=== PATIENT | female | born 1995 | race Caucasian/White ===

== ENCOUNTER → 2016-08-31 | Outpatient (CLI) | payer MEDICAID, OTHER ==
[~2016-08-31] MED LIST: NO HOME MEDS; QUET30XR PO; SERO50TA PO; TRAZ50TA11 PO; TRIL1TAB PO
[2016-08-31 14:41] LABS: MEAN CORPUSCULAR HEMOGLOBIN 31.5 pg (27.0-33.0); MEAN CORPUSCULAR HGB CONC 35.2 g/dl (32.0-36.5); MEAN CORPUSCULAR VOLUME 89.4 fl (80.0-96.0); RED CELL DISTRIBUTION WIDTH 12.8 % (11.5-14.5)
--- NOTE | 2016-08-31 15:05 | ECGEPIP ---
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
[2016-08-31 15:23] LABS: ALBUMIN 4.4 GM/DL (3.2-5.2); ALBUMIN/GLOBULIN RATIO 0.94 (1.00-1.93); ALKALINE PHOSPHATASE 116 U/L (45-117); ALT/SGPT 16 U/L (12-78); ANION GAP 6 MEQ/L (8-16); AST/SGOT 14 U/L (15-37); BILIRUBIN,TOTAL 1.2 MG/DL (0.2-1.0); BLOOD UREA NITROGEN 10 MG/DL (7-18); CALCIUM LEVEL 9.5 MG/DL (8.5-10.1); CARBON DIOXIDE LEVEL 27 MEQ/L (21-32); CHLORIDE LEVEL 103 MEQ/L (98-107); GLOMERULAR FILTRATION RATE > 60.0 (>60); GLUCOSE, FASTING 82 MG/DL (70-105); POTASSIUM SERUM 3.7 MEQ/L (3.5-5.1); SODIUM LEVEL 136 MEQ/L (136-145); TOTAL PROTEIN 9.1 GM/DL (6.4-8.2)
== END ==
LOC: M LAB 13:20
PROVIDERS: ATTEND Family Medicine
DX: F11.20 Opioid dependence, uncomplicated (principal); I49.9 Cardiac arrhythmia, unspecified; I45.10 Unspecified right bundle-branch block

== ENCOUNTER → 2016-10-12 | Outpatient (CLI) | payer MEDICAID | LOC: M OUTALCOH 08:01 | PROVIDERS: ATTEND Psychiatry & Neurology Psychiatry | DX: Z13.9 Encounter for screening, unspecified (principal); F11.20 Opioid dependence, uncomplicated ==

== ENCOUNTER 2016-11-06 09:54 | Outpatient (RCR) | payer MEDICAID | END 2016-11-21 | LOC: M OUTALCOH 09:54 | PROVIDERS: ATTEND Psychiatry & Neurology Psychiatry | DX: F11.20 Opioid dependence, uncomplicated (principal); F13.10 Sedative, hypnotic or anxiolytic abuse, uncomplicated; F17.200 Nicotine dependence, unspecified, uncomplicated ==

== ENCOUNTER → 2017-01-26 | Outpatient (CLI) | payer MEDICAID ==
[2017-01-26 19:18] LABS: ALBUMIN 4.2 GM/DL (3.2-5.2); ALBUMIN/GLOBULIN RATIO 0.93 (1.00-1.93); ALKALINE PHOSPHATASE 91 U/L (45-117); ALT/SGPT 17 U/L (12-78); ANION GAP 10 MEQ/L (8-16); AST/SGOT 11 U/L (7-37); BILIRUBIN,TOTAL 0.7 MG/DL (0.2-1.0); BLOOD UREA NITROGEN 8 MG/DL (7-18); CALCIUM LEVEL 9.1 MG/DL (8.5-10.1); CARBON DIOXIDE LEVEL 26 MEQ/L (21-32); CHLORIDE LEVEL 106 MEQ/L (98-107); CREATININE FOR GFR 0.71 MG/DL (0.55-1.02); GLOMERULAR FILTRATION RATE > 60.0 (>60); GLUCOSE, FASTING 115 MG/DL (70-105); SODIUM LEVEL 142 MEQ/L (136-145); TOTAL PROTEIN 8.7 GM/DL (6.4-8.2)
[2017-01-26 19:38] LABS: MEAN CORPUSCULAR HEMOGLOBIN 28.3 pg (27.0-33.0); MEAN CORPUSCULAR HGB CONC 33.5 g/dl (32.0-36.5); MEAN CORPUSCULAR VOLUME 84.6 fl (80.0-96.0); RED CELL DISTRIBUTION WIDTH 13.1 % (11.5-14.5); WHITE BLOOD COUNT 5.4 10^3/uL (4.0-10.0)
[2017-01-26 20:25] LABS: PLT CLUMPS? POS FLAG
--- NOTE | 2017-01-27 09:25 | ECGEPIP ---
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
== END ==
LOC: M LAB 17:37
PROVIDERS: ATTEND Family Medicine
DX: F11.20 Opioid dependence, uncomplicated (principal)

== ENCOUNTER → 2017-06-19 | Outpatient (REF) | payer MEDICAID, OTHER ==
[2017-06-20 19:21] LABS: APPEARANCE, URINE CLOUDY (CLEAR); BACTERIA, URINE AUTO 3+ (NEGATIVE); BILIRUBIN, URINE AUTO NEGATIVE (NEGATIVE); BLOOD, URINE BLOOD NEGATIVE (NEGATIVE); COLOR, URINE AMBER (YELLOW); GLUCOSE, URINE (UA) AUTO NEGATIVE (NEGATIVE); KETONE, URINE AUTO NEGATIVE (NEGATIVE); LEUKOCYTE ESTERASE, URINE AUTO 2+ (NEGATIVE); MUCUS, URINE SMALL (NEGATIVE); NITRITE, URINE AUTO NEGATIVE (NEGATIVE); PROTEIN, URINE AUTO 1+ mg/dL (NEGATIVE); RBC, URINE AUTO 2 /HPF (0-3); SPECIFIC GRAVITY URINE AUTO 1.024 (1.002-1.035); SQUAMOUS EPITHELIAL CELL UR AU 30 /HPF (0-6); UROBILINOGEN, URINE AUTO 0.2 mg/dL (0.0-2.0); WBC, URINE AUTO 71 /HPF (0-3)
== END ==
LOC: M LAB REF 09:57
DX: N39.0 Urinary tract infection, site not specified (principal)
CPT/HCPCS: 81001

== ENCOUNTER → 2018-05-31 | Outpatient (CLI) | payer MEDICAID ==
[~2018-05-31] MED LIST changes: -QUET30XR PO; +SERO300T PO; +TRAZ-160 PO; -TRAZ50TA11 PO
== END ==
LOC: M OUTALCOH 08:22
PROVIDERS: ATTEND Psychiatry & Neurology Psychiatry
DX: Z13.89 Encounter for screening for other disorder (principal); F11.20 Opioid dependence, uncomplicated

== ENCOUNTER → 2018-06-21 | Outpatient (RCR) | payer MEDICAID | LOC: M OUTALCOH 06-10 10:41 | PROVIDERS: ATTEND Psychiatry & Neurology Psychiatry | DX: F11.20 Opioid dependence, uncomplicated (principal); F13.10 Sedative, hypnotic or anxiolytic abuse, uncomplicated; F17.200 Nicotine dependence, unspecified, uncomplicated ==

== ENCOUNTER 2019-08-25 20:17 | Emergency (ER) | payer MEDICAID, OTHER ==
[~2019-08-25] VITALS: Ht 170.2 cm; Wt 69.6 kg
[~2019-08-25 20:17] MED LIST changes: -TRAZ-160 PO; +TRAZ-252 PO
[2019-08-25] MEDS ORDERED: CEPHALEXIN 500 MG CAP PO ONE (21:30)
[2019-08-25] MEDS ORDERED: PHENAZOPYRIDINE 100 MG TAB PO ONE (21:30)
[2019-08-25] MEDS ORDERED: PYRI1TAB5 PO (21:31)
[2019-08-25] MEDS ORDERED: KEFL500C17 PO (21:31)
[2019-08-25 21:38] VITALS: BP 116/73
== END 2019-08-25 21:40 | disposition home or self-care (01) ==
LOC: M ED 20:17
DX: N39.0 Urinary tract infection, site not specified (principal); F17.210 Nicotine dependence, cigarettes, uncomplicated; F31.9 Bipolar disorder, unspecified; F90.9 Attention-deficit hyperactivity disorder, unspecified type

== ENCOUNTER → 2020-07-15 | Outpatient (CLI) | payer OTHER ==
[~2020-07-15] MED LIST changes: +KEFL500C17 PO; +PYRI1TAB5 PO
[2020-07-15 14:31] LABS: APPEARANCE, URINE CLEAR (CLEAR); BACTERIA, URINE AUTO NEGATIVE (NEGATIVE); BILIRUBIN, URINE AUTO NEGATIVE (NEGATIVE); BLOOD, URINE BLOOD NEGATIVE (NEGATIVE); COLOR, URINE STRAW (YELLOW); GLUCOSE, URINE (UA) AUTO NEGATIVE (NEGATIVE); KETONE, URINE AUTO NEGATIVE (NEGATIVE); LEUKOCYTE ESTERASE, URINE AUTO NEGATIVE (NEGATIVE); NITRITE, URINE AUTO NEGATIVE (NEGATIVE); PROTEIN, URINE AUTO NEGATIVE (NEGATIVE); RBC, URINE AUTO 2 /HPF (0-3); SPECIFIC GRAVITY URINE AUTO 1.003 (1.002-1.035); SQUAMOUS EPITHELIAL CELL UR AU 1 /HPF (0-6); UROBILINOGEN, URINE AUTO 0.2 mg/dL (0.0-2.0); WBC, URINE AUTO 0 /HPF (0-3)
[2020-07-15 14:32] LABS: BASO % 0.4 % (0.0-1.0); EOS # 0.1 10^3/uL (0.0-0.5); EOS % 2.1 % (0.0-3.0); HEMOGLOBIN 12.8 g/dl (12.0-15.5); LYMPH # 1.7 10^3/uL (1.5-5.0); LYMPH % 32.5 % (24.0-44.0); MEAN CORPUSCULAR HEMOGLOBIN 28.6 pg (27.0-33.0); MEAN CORPUSCULAR HGB CONC 33.7 g/dl (32.0-36.5); MONO # 0.5 10^3/uL (0.0-0.8); MONO % 8.7 % (2.0-8.0); NEUTROPHILS % 55.9 % (36.0-66.0); PLATELET COUNT, AUTOMATED 156 10^3/uL (150-450); RED BLOOD COUNT 4.47 10^6/uL (4.00-5.40); WHITE BLOOD COUNT 5.3 10^3/uL (4.0-10.0)
[2020-07-15 15:05] LABS: ALBUMIN 4.1 GM/DL (3.2-5.2); ALT/SGPT 42 U/L (12-78); BILIRUBIN,TOTAL 0.5 MG/DL (0.2-1.0); BLOOD UREA NITROGEN 11 MG/DL (7-18); CALCIUM LEVEL 9.2 MG/DL (8.5-10.1); CARBON DIOXIDE LEVEL 28 MEQ/L (21-32); CHLORIDE LEVEL 103 MEQ/L (98-107); CREATININE FOR GFR 0.74 MG/DL (0.55-1.30); GLOMERULAR FILTRATION RATE > 60.0 (>60); GLUCOSE, FASTING 93 MG/DL (70-100); POTASSIUM SERUM 4.1 MEQ/L (3.5-5.1); SODIUM LEVEL 138 MEQ/L (136-145); TOTAL PROTEIN 8.5 GM/DL (6.4-8.2)
[2020-07-15 15:25] LABS: HEPATITIS B SURFACE ANTIGEN NEGATIVE (NEGATIVE)
[2020-07-15 15:53] LABS: HEPATITIS B CORE ANTIBODY IGM NEGATIVE (NEGATIVE)
[2020-07-15 15:54] LABS: HEPATITIS A ANTIBODY IGM NEGATIVE (NEGATIVE)
[2020-07-15 15:57] LABS: HEPATITIS C VIRUS ABY INDEX > 11.0 INDEX (<0.8)
== END ==
LOC: M LAB 13:26
PROVIDERS: ATTEND Physician Assistant Medical
DX: Z02.2 Encounter for examination for admission to residential institution (principal)

== ENCOUNTER → 2021-01-01 | Outpatient (CLI) | payer OTHER ==
[~2021-01-01] MED LIST changes: +BUSP30TA PO; +QC F0.52 PO; +SENN-80 PO; +SUBL300I SC; +WELLTAB38 PO; +ZOLO25TA PO
== END ==
LOC: M LABSMTC 10:46
PROVIDERS: ATTEND Anesthesiology
DX: Z01.818 Encounter for other preprocedural examination (principal); Z11.52 Encounter for screening for COVID-19

== ENCOUNTER 2021-01-06 07:57 | Day surgery (SDC) | payer OTHER ==
[~2021-01-06] VITALS: Ht 170.2 cm; Wt 79.7 kg
[~2021-01-06 07:57] MED LIST changes: +LR 1,000 ML IV ONE
--- OUTSIDE RECORDS SUMMARY | 2021-01-06 08:01 | CCD | Continuity of Care Document ---
Author Author [facility] [place] Organization [facility] [place] Address Unknown Phone Unavailable Care Team Providers Care Easement Man Name Role Phone Tonja Oleary MD Unavailable Unavailable Allergies, Adverse Reactions, Alerts Substance Reaction Status Criticality No Known Allergies Active No Information Medications Medication Instructions Dosage Effective Dates (start - stop) Sta tus Comments Sublocade 100 mg/0.5 mL solution,extended release subc utaneous syringe inject 0.5 milliliter by subcutaneous route every month in the abdomen rotating injection sites 100 MG - Active Problems Condition Effective Dates (start - stop) Clinical Status C omments Encounter for oth general cnsl and advice on contraception 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 Encntr screen for infections w sexl mode of transmiss Human immunodeficiency virus [HIV] counseling Other sex counseling Acute vaginitis Other specified noninflammatory disorders of vagina Pelvic and perineal pain Other sex counseling Acute vaginitis Other specified noninflammatory disorders of vagina Encounter for oth general cnsl and advice on contraception Encounter for test, result negative Human immunodeficiency virus [HIV] counseling Human immunodeficiency virus [HIV] counseling Encounter for test, result negative Other specified noninflammatory disorders of vagina Acute vaginitis Encounter for oth general cnsl and advice on contraception Encounter for screening for human immunodeficiency virus 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 [address] [place], [place], [id number], [place]. tel:[phone] [facility], [address] [place], [place], [id number], [place] tel:[phone] [facility] Encounter for oth g eneral cnsl and advice on contraception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Encntr screen for infections w sexl mode of transmissHuman immunodeficiency virus [HIV] counselingOther sex counselingAcute vaginitisOther specified noninflammatory disorders of vaginaPelvic and perineal pain Indio Gao. [address] [place], [place], [id number], [place]. tel:[phone] Referring Provider: Mandie Borjas, [address] [place] [address], [id number]. tel:[phone] [facility], [address] [place], [place], [id number], [place] tel:[phone] [facility] Other sex counselin gAcute vaginitisOther specified noninflammatory disorders of vaginaEncounter for oth general cnsl and advice on contraceptionEncounter for test, result negative Ana William. [address] [place], [place], [id number], [place]. tel:[phone] Referring Provider: Kathy Perez, [address] [place], [place], [id number]. tel:[phone] [facility], [address] [place] [address], [id number], [place] tel:[phone] [facility] Human immunodeficie ncy virus [HIV] counseling Elroy Marquez. [address] [place], [place], [id number]. tel:[phone] Referring Provider: Alma Abbasi, [address] [place] [address], [id number]. tel:[phone] [facility] [address], [address] [place] [address], tel:[phone] [facility] [place] Human immunodeficie ncy virus [HIV] counselingEncounter for test, result negativeOther specified noninflammatory disorders of vaginaAcute vaginitisEncounter for oth general cnsl and advice on contraceptionEncounter for screening for human immunodeficiency virus Saundra Ennis. [address] [place] [address], [address] [place] [address], . tel:[phone] Referring Provider: Loli mac, [address] [place] [address], [address] [place] [address]. tel:[phone] [facility] [address], [address] [place] [address], tel:[phone] [facility] STI ScreeningGYN Ex am, Routine WWEHIV CounselingOCP, StartSTI CounselingBV Katiana Jimenez. [address] [place] [address], [id number]. tel:[phone] Family History Family Member Diagnosis Age At Onset Father Alcoholism 1st degree relative No hx of cancer of breast, colon, endome trium or ovary Mother High cholesterol 1st degree relative No hx of coronary heart disease (female <65, male <55) 1st degree relative No hx of venous thromboembolism Father Diabetes mellitus Immunizations Vaccine Date Status Comments measles, mumps and rubella virus vaccine adminis tered Note: Dates Unknown, Attended [facility] schools.Invalid documented admin date was NULL/NULL/2013. ; Source: Source Unspecified rubella virus vaccine administered Note: Date s Unknown, Attended [facility] [employer].Invalid documented admin date was NULL/NULL/2013. ; Source: Source Unspecified tetanus toxoid, adsorbed administered Note: D ates Unknown, Attended [facility] [employer].Invalid documented admin date was NULL/NULL/2013. ; Source: Source Unspecified varicella virus vaccine administered Note: Da bronson Unknown, Attended [facility] [employer].Invalid documented admin date was NULL/NULL/2013. ; Source: Source Unspecified hepatitis A and hepatitis B vaccine administered Note: Dates Unknown, Attended [facility] EZ[employer]CTOR.Invalid documented admin date was NULL/NULL/2013. ; Source: Source Unspecified hepatitis A vaccine, adult dosage administered Note: Dates Unknown, Attended [facility] [employer].Invalid documented admin date was NULL/NULL/2013. ; Source: Source Unspecified hepatitis B vaccine, adult dosage administered Note: Dates Unknown, Attended [facility] [employer].Invalid documented admin date was NULL/NULL/2013. ; Source: Source Unspecified Payers Payer name Insurance type Covered democrat ID Authorization(s ) [facility] CI [id number] Social History Type Description Quantity Date Captured Comments Alcohol Use Details Unknown Caffeine Use Details Unknown Tobacco Use Status No Information Smoking Status Never smoker Sex Female Vital Signs Date / Time: Height Weight BMI Pulse Rate Blood Pressure Temperatu re Respiratory Rate Body Surface Area Head Circumference BMI percentile Pulse Ox In haled Ox No Information Chief Complaint And Reason For Visit No Information Reason For Referral Reason For Referral No Information Plan Of Treatment Date Type Action Status Goal Tobacco cessation counseling com pleted Goal Tobacco cessation counseling com pleted Goal Tobacco cessation counseling com pleted History Of Present Illness Encounter Date Complaint History Of Present I llness No Information Functional Status Date Functional Assessment No Information Medications Administered Medication Instructions Dosage Effective Dates (start - stop) Sta tus Comments No Information Instructions Date Instruction Additional Informati on No Information Assessments Type Assessment Date No Information Goals Health Concern Goal Type Priority Status Date No Information Medical Equipment Description Device [place] Device Identifier Effective Gabriel es (start - stop) Status No Information Mental Status Date Cognitive Assessment No Information Health Concerns Observation Date No Information Concern Status Date No Information Physical Examination Exam Findings Details No Information
--- OUTSIDE RECORDS SUMMARY | 2021-01-06 08:01 | CCD | Continuity of Care Document ---
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 [address] [place], [place], [id number], [place]. tel:[phone] [facility], [address] [place], [place], [id number], [place] tel:[phone] [facility] Encounter for oth g eneral cnsl and advice on contraceptionEncntr for design leader exam (general) (routine) w abnormal findingsEncntr screen for infections w sexl mode of transmissHuman immunodeficiency virus [HIV] counselingOther sex counselingAcute vaginitisOther specified noninflammatory disorders of vaginaPelvic and perineal pain Indio Gao. [address] [place], [place], [id number], [place]. tel:[phone] Referring Provider: Mandie Borjas, [address] [place] [address], [id number]. tel:[phone] [facility], [address] [place], [place], [id number], [place] tel:[phone] [facility] Other sex counselin gAcute vaginitisOther specified noninflammatory disorders of vaginaEncounter for oth general cnsl and advice on contraceptionEncounter for test, result negative Ana William. [address] [place], [place], [id number], [place]. tel:[phone] Referring Provider: Kathy Perez, [address] [place], [place], [id number]. tel:[phone] [facility], [address] [place] [address], [id number], [place] tel:[phone] [facility] Human immunodeficie ncy virus [HIV] counseling Elroy Marquez. [address] [place], [place], [id number]. tel:[phone] Referring Provider: Alma Abbasi, [address] [place] [address], [id number]. tel:[phone] [facility] [address], [address] [place] [address], tel:[phone] [facility] [place] Human immunodeficie ncy virus [HIV] counselingEncounter for test, result negativeOther specified noninflammatory disorders of vaginaAcute vaginitisEncounter for oth general cnsl and advice on contraceptionEncounter for screening for human immunodeficiency virus Saundra Ennis. [address] [place] [address], [address] [place] [address], . tel:[phone] Referring Provider: Loli mac, [address] [place] [address], [address] [place] [address]. tel:[phone] [facility] [address], [address] [place] [address], tel:[phone] [facility] STI ScreeningGYN Ex am, Routine WWEHIV CounselingOCP, StartSTI CounselingBV Katiana Jimenez. [address] [place] [address], [id number]. tel:[phone] Family History Family Member Diagnosis Age At [...] vaccine adminis tered Note: Dates Unknown, Attended [facility] schools.Invalid documented admin date was NULL/NULL/2013. ; Source: Source Unspecified rubella virus vaccine administered Note: Date s Unknown, Attended [facility] [employer].Invalid documented admin date was NULL/NULL/2013. ; Source: Source Unspecified tetanus toxoid, adsorbed administered Note: D ates Unknown, Attended [facility] [employer].Invalid documented admin date was NULL/NULL/2013. ; Source: Source Unspecified varicella virus vaccine administered Note: Da bronson Unknown, Attended [facility] [employer].Invalid documented admin date was NULL/NULL/2013. ; Source: Source Unspecified hepatitis A and hepatitis B vaccine administered Note: Dates Unknown, Attended [facility] [employer].Invalid documented admin date was NULL/NULL/2013. ; Source: Source Unspecified hepatitis A vaccine, adult dosage administered Note: Dates Unknown, Attended [facility] [employer].Invalid documented admin date was NULL/NULL/2013. ; Source: Source Unspecified hepatitis B vaccine, adult dosage administered Note: Dates Unknown, Attended [facility] [employer].Invalid documented admin date was NULL/NULL/2013. ; Source: Source Unspecified Payers Payer name Insurance type Covered democrat ID Authorization(s ) [facility] CI [id number] Social History Type Description Quantity Date Captured [...] Date No Information Medical Equipment Description Device [place] Device Identifier Effective Gabriel es (start - stop) Status No Information Mental Status Date Cognitive Assessment No Information Health Concerns Observation Date No Information Concern Status Date No Information Physical Examination Exam Findings Details No Information
--- OUTSIDE RECORDS SUMMARY | 2021-01-06 08:01 | CCD | Continuity of Care Document ---
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 [address] [place], [place], [id number], [place]. tel:[phone] [facility] [place], [address] [place], [place], [id number], [place] tel:[phone] [facility] Encounter for oth g eneral cnsl and advice on contraceptionEncntr for settlement processor exam (general) (routine) w abnormal findingsEncntr screen for infections w sexl mode of transmissHuman immunodeficiency virus [HIV] counselingOther sex counselingAcute vaginitisOther specified noninflammatory disorders of vaginaPelvic and perineal pain Indio Gao. [address] [place], [place], [id number], [place]. tel:[phone] Referring Provider: Mandie Borjas, [address] [place], [place], [id number]. tel:[phone] [facility], [address] [place], [place], [id number], [place] tel:[phone] [facility] Other sex counselin gAcute vaginitisOther specified noninflammatory disorders of vaginaEncounter for oth general cnsl and advice on contraceptionEncounter for test, result negative Ana William. [address] [place], [place], [id number], [place]. tel:[phone] Referring Provider: Kathy Perez, [address] [place], [place], [id number]. tel:[phone] [facility] [place], [address] [place], [place], [id number], [place] tel:[phone] [facility] Human immunodeficie ncy virus [HIV] counseling Feb-01-2018 Elroy Marquez. [address] [place], [place], [id number]. tel:[phone] Referring Provider: Alma Abbasi, [address] [place] [address], [id number]. tel:[phone] [facility], [address] [place] [address], [id number], tel:[phone] [facility] Human immunodeficie ncy virus [HIV] counselingEncounter for test, result negativeOther specified noninflammatory disorders of vaginaAcute vaginitisEncounter for oth general cnsl and advice on contraceptionEncounter for screening for human immunodeficiency virus Saundra Ennis. [address] [place], [place], [id number], . tel:[phone] Referring Provider: Loli mac, [address] [place] [address], [id number]. tel:[phone] [facility] [address], [id number], tel:[phone] [facility] STI ScreeningGYN Ex am, Routine WWEHIV CounselingOCP, StartSTI CounselingBV Saab Barbara. [address] [place] [address], [id number]. tel:[phone] Family History Family Member Diagnosis Age At [...] vaccine adminis tered Note: Dates Unknown, Attended [facility] Intent.Invalid documented admin date was NULL/NULL/2013. ; Source: Source Unspecified rubella virus vaccine administered Note: Date s Unknown, Attended [facility] schools.Invalid documented admin date was NULL/NULL/2013. ; Source: Source Unspecified tetanus toxoid, adsorbed administered Note: D ates Unknown, Attended [facility] Intent.Invalid documented admin date was NULL/NULL/2013. ; Source: Source Unspecified varicella virus vaccine administered Note: Da bronson Unknown, Attended [facility] Intent.Invalid documented admin date was NULL/NULL/2013. ; Source: Source Unspecified hepatitis A and hepatitis B vaccine administered Note: Dates Unknown, Attended [facility] Intent.Invalid documented admin date was NULL/NULL/2013. ; Source: Source Unspecified hepatitis A vaccine, adult dosage administered Note: Dates Unknown, Attended [facility] Intent.Invalid documented admin date was NULL/NULL/2013. ; Source: Source Unspecified hepatitis B vaccine, adult dosage administered Note: Dates Unknown, Attended [facility] Intent.Invalid documented admin date was NULL/NULL/2013. ; Source: Source Unspecified Payers Payer name Insurance type Covered libertarian ID Authorization(s ) [facility] CI [id number] Social History Type Description Quantity Date Captured [...] Date No Information Medical Equipment Description Device [place] Device Identifier Effective Gabriel es (start - stop) Status No Information Mental Status Date Cognitive Assessment No Information Health Concerns Observation Date No Information Concern Status Date No Information Physical Examination Exam Findings Details No Information
--- OUTSIDE RECORDS SUMMARY | 2021-01-06 08:01 | CCD | Continuity of Care Document ---
Author Author Teri KEITH Organization Unknown Address [address] [facility] [address] [place] [address] Phone [phone] Care Team Providers Care Filing Or Registry Clerk Name Role Phone JAVIER KEITH AUTM Social History Type Date Description Comments Sex Unknown Results Test Acquired Date Facility Test Result H/L Range Note Ua Routine 07/15/[address] [address] [phone] Appearance, Urine CLEAR Normal Clear Color, Urine STRAW Normal Yellow PH,Urine 7.0 units Normal 5.0-9.0 Specific [place] Urine Auto 1.003 Normal 1.002-1.035 Protein, Urine Auto NEGATIVE mg/dL Normal Negative Glucose, Urine (Ua) Auto NEGATIVE mg/dL Normal Negative Ketone, Urine Auto NEGATIVE mg/dL Normal Negative Urobilinogen, Urine Auto 0.2 mg/dL Normal 0.0-2.0 Bilirubin, Urine Auto NEGATIVE Normal Negative Nitrite, Urine Auto NEGATIVE Normal Negative Leukocyte Esterase, Urine Auto NEGATIVE Normal Negative Blood, Urine Blood NEGATIVE Normal Negative WBC, Urine Auto 0 /HPF Normal 0-3 RBC, Urine Auto 2 /HPF Normal 0-3 Bacteria, Urine Auto NEGATIVE Normal Negative Squamous Epithelial Cell Ur AU 1 /HPF Normal 0-6 Hyaline Cast, Urine Auto 0 /LPF Normal 0-1 CBC With Differential 07/15/[address] [address] [phone] White Blood Count 5.3 10 Normal 4.0-10.0 Red Blood Count 4.47 10 Normal 4.00-5.40 Hemoglobin 12.8 g/dL Normal 12.0-15.5 Hematocrit 38.0 % Normal 36.0-47.0 Mean Corpuscular Volume 85.0 fl Normal 80.0-96.0 Mean Corpuscular Hemoglobin 28.6 pg Normal 27.0-33.0 Mean Corpuscular HGB Conc 33.7 g/dL Normal 32.0-36.5 Red Cell Distribution Width 12.8 % Normal 11.5-14.5 Platelet Count, Automated 156 10 Normal 150-450 Neutrophils % 55.9 % Normal 36.0-66.0 Lymph % 32.5 % Normal 24.0-44.0 [place] % 8.7 % High 2.0-8.0 Eos % 2.1 % Normal 0.0-3.0 Baso % 0.4 % Normal 0.0-1.0 Immature Granulocyte % 0.4 % Normal 0-3.0 Nucleated Red Blood Cell % 0.0 % Normal 0-0 Neutrophils # 3.0 10 Normal 1.5-8.5 Lymph # 1.7 10 Normal 1.5-5.0 [place] # 0.5 10 Normal 0.0-0.8 Eos # 0.1 10 Normal 0.0-0.5 Baso # 0.0 10 Normal 0.0-0.2 Comprehensive Metabolic Profil 07/15/[address] [address] [phone] Glucose, Fasting 93 mg/dL Normal 70-100 Blood Urea Nitrogen 11 mg/dL Normal 7-18 Creatinine For GFR 0.74 mg/dL Normal 0.55-1.30 Glomerular Filtration Rate > 60.0 Normal >60 1 Sodium Level 138 mEq/L Normal 136-145 Potassium Serum 4.1 mEq/L Normal 3.5-5.1 Chloride Level 103 mEq/L Normal 98-107 Carbon Dioxide Level 28 mEq/L Normal 21-32 Anion Gap 7 mEq/L Low 8-16 Calcium Level 9.2 mg/dL Normal 8.5-10.1 Ast/Sgot 25 U/L Normal 7-37 Alt/SGPT 42 U/L Normal 12-78 Alkaline Phosphatase 81 U/L Normal 45-117 Bilirubin,Total 0.5 mg/dL Normal 0.2-1.0 Total Protein 8.5 GM/DL High 6.4-8.2 Albumin 4.1 GM/DL Normal 3.2-5.2 Albumin/Globulin Ratio 0.9 Low 1.2-2.2 Hepatitis Profile 07/15/2020 [facility] [address] [place] [address] [phone] Hepatitis C Virus Lexii Index > 11.0 INDEX High <0 .8 2 Hepatitis B Surface Antigen NEGATIVE Normal Negative Hepatitis B Core Antibody Igm NEGATIVE Normal Negative Hepatitis A Antibody Igm NEGATIVE Normal Negative Laboratory test finding 07/15/2020 [facility] [address] [place] [address] [phone] HCV Rna Barbi Qualitative Negative Normal Negative 3 1 Units are mL/min/1.73 m2 Chronic Kidney Disease Staging per NKF: Stage I & II GFR >=60 Normal to Mildly Decreased Stage III GFR 30-59 Moderately Decreased Stage IV GFR 15-29 Severely Decreased Stage V GFR <15 Very Little GFR Left ESRD GFR <15 on SAMPLER OVENS 2 This screening test for Hepa titis C Virus was above the 1.0 cutoff index value and will be sent to reference lab [facility], [address] [facility] [address] Marissa, Andrés.Tushar. [address] for Hep C RNA BARBI testing to confirm or exclude active Hepatitis C Virus infection. Screening test Positive samples with high index values (>11.0) usually (95%) confirm Positive, but <5 of every 100 samples with this result might be a false positive and Hep C RNA BARBI testing will aid in patient management. 3 Negative: HCV RNA Not Detect ed Performed at: [address] [id number] Out: René Orlando MD, Phone: [phone] Procedures Date Code Description Status 11/06/2020 70568 Office/Outpatient Established SF MDM 10-19 Min Completed 10/15/2020 18875 Office/Outpatient Established Lo w MDM 20-29 Min Completed 08/29/2020 21869 Office/Outpatient Established Lo w MDM 20-29 Min Completed 08/06/2020 88200 Office/Outpatient Established Lo w MDM 20-29 Min Completed 07/12/2020 01335 Office/Outpatient New Low MDM 30 -44 Minutes Completed Encounters Type Date Location Provider Dx Diagnosis Office Visit 11/06/2020 12:30p [facility] LAURA Garcia R05 Cough Office Visit 10/15/2020 10:00a [facility] LAURA Garcia J01.10 Acute frontal sinusitis, uns pecified Office Visit 08/29/2020 9:45a [facility] LAURA Garcia J01.10 Acute frontal sinusitis, uns pecified F41.9 Anxiety disorder, unspecifie d G47.00 Insomnia, unspecified Office Visit 08/06/2020 12:00p [facility] LAURA Garcia G93.0 Cerebral cysts F41.9 Anxiety disorder, unspecifie d J35.8 Other chronic diseases of to nsils and adenoids Office Visit 07/12/2020 10:30a [facility] LAURA Garcia F41.9 Anxiety disorder, unspecifie d G47.00 Insomnia, unspecified Z02.79 Encounter for issue of other medical certificate Assessments Date Code Description Provider 11/06/2020 R05 Cough LAURA Davidson 10/15/2020 J01.10 Acute frontal sinusitis, unspeci fied Javier Keith, LAURA 08/29/2020 J01.10 Acute frontal sinusitis, unspeci fied LAURA Miller 08/29/2020 F41.9 Anxiety disorder, unspecified LAURA Carter 08/29/2020 G47.00 Insomnia, unspecified LAURA Miller 08/06/2020 G93.0 Cerebral cysts LAURA Davidsno 08/06/2020 F41.9 Anxiety disorder, unspecified LAURA Carter 08/06/2020 J35.8 Other chronic diseases of tonsil s and adenoids LAURA Miller 07/12/2020 F41.9 Anxiety disorder, unspecified LAURA Carter 07/12/2020 G47.00 Insomnia, unspecified LAURA Miller 07/12/2020 Z02.79 Encounter for issue of other med ical certificate LAURA Miller Referrals Refer to Reason for Referral Status Appt Date [facility] Neurology CREDO PATIENT WITH H/O CYSTI C LESION OF THE BRAIN SINCE CHILDHOOD. . HAS NOT HAD ANY FOLLOW UP IN 10 YEARS . PLEASE EVAL AND TREAT. (NO RECORDS AVAILABLE) Sent [address] [place] [address] [phone] [facility] - ENT PATIENT WITH C/O TONSILAR ST ONES AND RECURRENT PHARYNGITIS . PLEASE EVAL AND TREAT Sent 08/20/2020 [address] [facility] [address] [place] [address] [phone]
--- OUTSIDE RECORDS SUMMARY | 2021-01-06 08:01 | CCD | Continuity of Care Document ---
Author Author Teri LAST MD Organization Unknown Address [address] [facility], [address] [place] [address] Phone [phone] Care Team Providers Care Buyer Planner Name Role Phone Javier Keith AUTM [phone] Problems Active Problems Provider Date Chronic tonsillitis Colby Last MD Onset: 08/20/2020 Social History Type Date Description Comments Sex Unknown ETOH Use Denies alcohol use Recreational Drug Use Former Drug User Heroin Tobacco Use Start: Unknown End: Unknown Patient is a former smoker Allergies and adverse reactions Description No Known Drug Allergies Medications Active Medications SIG Qnty Indications Ordering Provide r Date Buspirone HCL 15mg Tablets 1 tab by mouth three times a day Unknown Wellbutrin XL 300mg Tablets ER 24H R 1 tab by mouth every day Unknown Fibercon 625mg Tablets 1 tab by mouth every day Unknown Sublocade 100mg/0.5M L Soln Prefill Syringe 1 inj once a month Unknown 0 Claritin 10mg Capsules 1 by mouth every day Unknown Immunizations Description No Information Available Vital Signs Date Vital Result Comment 12/05/2020 8:50am BP Systolic 122 mmHg BP Diastolic 72 mmHg Heart Rate 72 /min O2 % BldC Oximetry 98 % Height 67 inches 5'7" Weight 177.00 lb BMI (Body Mass Index) 27.7 kg/m2 [place] Body Weight 135 lb Weight 80.287 kg BSA (Body Surface Area) 1.92 m2 09/25/2020 9:41am BP Systolic 120 mmHg BP Diastolic 78 mmHg Heart Rate 64 /min O2 % BldC Oximetry 98 % Height 67 inches 5'7" Weight 183.00 lb BMI (Body Mass Index) 28.7 kg/m2 [place] Body Weight 135 lb Weight 83.009 kg BSA (Body Surface Area) 1.95 m2 Results Description No Information Available Procedures Date Code Description Status 12/05/2020 95496 Office/Outpatient Established Mo d MDM 30-39 Min Completed 09/25/2020 42981 Office/Outpatient Established Lo w MDM 20-29 Min Completed 08/20/2020 55978 Office/Outpatient New Moderate M DM 45-59 Minutes Completed Medical Devices Description No Information Available Encounters Type Date Location Provider Dx Diagnosis Office Visit 12/05/2020 8:45a [facility] Licha Galvez J35.01 Chronic tonsillitis Office Visit 09/25/2020 9:45a [facility] Licha Galvez J35.01 Chronic tonsillitis Office Visit 08/20/2020 9:15a [facility] Licha Galvez J35.01 Chronic tonsillitis Assessments Date Code Description Provider 12/05/2020 J35.01 Chronic tonsillitis Colby Last MD 09/25/2020 J35.01 Chronic tonsillitis Colby Last MD 08/20/2020 J35.01 Chronic tonsillitis Colby Last MD Plan of Treatment No Information Available Functional Status Description No Information Available Mental Status Description No Information Available Referrals Refer to Dr Reason for Referral Status Appt Colby Last M.D. [employer]ER TONSILLAR AND RECURRENT P HARYNGITIS REF F SRIRAM INS MVP Closed 08/20/[address] [address] [phone]
--- OUTSIDE RECORDS SUMMARY | 2021-01-06 08:01 | CCD | Continuity of Care Document ---
Author Author [facility] [place] Organization [facility] Address [address] [place] [address] Phone Care Team Providers Care Book Solicitor Name Role Phone [place] EVENT CREW TECHNICIAN, Mandie Gao Unavailable Unavailable Allergies, Adverse Reactions, Alerts Substance Reaction Status Criticality No Known Allergies Active No Information Medications Medication Instructions Dosage Effective Dates (start - stop) Sta tus Comments Metrogel Vaginal 0.75 % 1 applicatorful intravag QHS x 5d - Active Sublocade 100 mg/0.5 mL solution,extended release subc utaneous syringe inject 0.5 milliliter by subcutaneous route every month in the abdomen rotating injection sites 100 MG - Active Problems Condition Effective Dates (start - stop) Clinical Status C omments Encounter for oth general cnsl and advice on contraception Encntr for dip painter exam (general) (routine) w abnormal findings Encntr [...] screening for human immunodeficiency virus STI Screening 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 Exam, Routine WWE HIV Counseling OCP, Start STI Counseling BV Procedures Procedure Date No Information Results Test Name Date and Time Measure Units Reference Range Abnormal Flag St atus Comments No Information Advance Directives Directive Yes / No Effective Date File Name No Information Encounters Encounter Description Practice Location Reason(s) For Visit Diagnose s Date Provider Providers Copied on Encounter [facility], [address] [place], [place], [id number], [place] tel:[phone] [facility] No Information Viviana Gao. [address] [place], [place], [id number], [place]. tel:[phone] [facility], [address] [place], [place], [id number], [place] tel:[phone] [facility] Encounter for oth g eneral cnsl and advice on contraceptionEncntr for dip painter exam (general) (routine) w abnormal findingsEncntr screen for infections w sexl mode of transmissHuman immunodeficiency virus [HIV] counselingOther sex counselingAcute vaginitisOther specified noninflammatory disorders of vaginaPelvic and perineal pain Indio Gao. [address] [place], [place], [id number], [place]. tel:[phone] Referring Provider: Mandie Borjas, [address] [place], [place], [id number]. tel:[phone] [facility], [address] [place], [place], [id number], [place] tel:[phone] [facility] Other sex counselin gAcute vaginitisOther specified noninflammatory disorders of vaginaEncounter for oth general cnsl and advice on contraceptionEncounter for test, result negative Ana William. [address] [place], [place], [id number], [place]. tel:[phone] Referring Provider: Kathy Perez, [address] [place], [place], [id number]. tel:[phone] [facility], [address] [place], [place], [id number], tel:[phone] [facility] Human immunodeficie ncy virus [HIV] counseling Elroy Alma. [address] [place] [address], [id number]. tel:[phone] Referring Provider: Alma Abbasi, [address] [place] [address], [id number]. tel:[phone] [facility], [address] [place] [address], [id number], tel:[phone] [facility] Human immunodeficie ncy virus [HIV] counselingEncounter for test, result negativeOther specified noninflammatory disorders of vaginaAcute vaginitisEncounter for oth general cnsl and advice on contraceptionEncounter for screening for human immunodeficiency virus Saundra Ennis. [address] [place], [place], [address] [place] [address], . tel:[phone] Referring Provider: Loli mac, [address] [place] [address], [id number]. tel:[phone] [facility], [address] [place] [address], [address] [place] [address], tel:[phone] [facility] STI ScreeningGYN Ex am, Routine WWEHIV CounselingOCP, StartSTI CounselingBV Katiana Jimenez. [address] [place], [place], [id number]. tel:[phone] Family History Family Member Diagnosis Age At [...] vaccine adminis tered Note: Dates Unknown, Attended [employer] [facility].Invalid documented admin date was NULL//2013. ; Source: Source Unspecified rubella virus vaccine administered Note: Date s Unknown, Attended [employer] [facility] schools.Invalid documented admin date was NULL/NULL/2013. ; Source: Source Unspecified tetanus toxoid, adsorbed administered Note: D ates Unknown, Attended [employer] [facility] schools.Invalid documented admin date was NULL/NULL/2013. ; Source: Source Unspecified varicella virus vaccine administered Note: Da bronson Unknown, Attended [facility] [employer].Invalid documented admin date was NULL/NULL/2013. ; Source: Source Unspecified hepatitis A and hepatitis B vaccine administered Note: Dates Unknown, Attended [facility].Invalid documented admin date was NULL/NULL/2013. ; Source: Source Unspecified hepatitis A vaccine, adult dosage administered Note: Dates Unknown, Attended [facility].Invalid documented admin date was NULL/NULL/2013. ; Source: Source Unspecified hepatitis B vaccine, adult dosage administered Note: Dates Unknown, Attended [facility] [employer].Invalid documented admin date was NULL/NULL/2013. ; Source: Source Unspecified Payers Payer name Insurance type Covered alliance party ID Authorization(s ) [facility] CI [id number] Social History Type Description Quantity Date Captured [...] Date No Information Medical Equipment Description Device [place] Device Identifier Effective Gabriel es (start - stop) Status No Information Mental Status Date Cognitive Assessment No Information Health Concerns Observation Date No Information Concern Status Date No Information Physical Examination Exam Findings Details No Information
--- OUTSIDE RECORDS SUMMARY | 2021-01-06 08:02 | CCD | Continuity of Care Document ---
Author Author Teri BHATIA Organization Unknown Address [address] [facility] [address] [place] [address] Phone [phone] Care Team Providers Care Packaging Line Attendant Name Role Phone HUE BHATIA AUTM [phone] Social History Type Date Description Comments Sex Unknown Results Test Acquired Date Facility Test Result H/L Range Note Ua Routine 07/15/[address] [address] [phone] Appearance, Urine CLEAR Normal Clear Color, Urine STRAW Normal Yellow PH,Urine 7.0 units Normal 5.0-9.0 Specific [place] Urine Auto 1.003 Normal 1.002-1.035 Protein, Urine [...] /LPF Normal 0-1 CBC With Differential 07/15/[address] [address] [phone] White Blood Count 5.3 10 Normal 4.0-10.0 [...] 36.0-66.0 Lymph % 32.5 % Normal 24.0-44.0 [place] % 8.7 % High 2.0-8.0 Eos % 2.1 % Normal 0.0-3.0 Baso % 0.4 % Normal 0.0-1.0 Immature Granulocyte % 0.4 % Normal 0-3.0 Nucleated Red Blood Cell % 0.0 % Normal 0-0 Neutrophils # 3.0 10 Normal 1.5-8.5 Lymph # 1.7 10 Normal 1.5-5.0 [place] # 0.5 10 Normal 0.0-0.8 Eos # 0.1 10 Normal 0.0-0.5 Baso # 0.0 10 Normal 0.0-0.2 Comprehensive Metabolic Profil 07/15/[address] [address] [phone] Glucose, Fasting 93 mg/dL Normal 70-100 Blood [...] Ratio 0.9 Low 1.2-2.2 Hepatitis Profile 07/15/2020 [facility] [address] [place] [address] [phone] Hepatitis C Virus Lexii Index > 11.0 INDEX High <0 .8 2 Hepatitis B Surface Antigen NEGATIVE Normal Negative Hepatitis B Core Antibody Igm NEGATIVE Normal Negative Hepatitis A Antibody Igm NEGATIVE Normal Negative Laboratory test finding 07/15/2020 [facility] [address] [place] [address] [phone] HCV Rna Barbi Qualitative Negative Normal Negative 3 1 Units are mL/min/1.73 m2 Chronic Kidney Disease Staging per NKF: Stage I & II GFR >=60 Normal to Mildly Decreased Stage III GFR 30-59 Moderately Decreased Stage IV GFR 15-29 Severely Decreased Stage V GFR <15 Very Little GFR Left ESRD GFR <15 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 Marissa, Andrés.Tushar. [address] for Hep C RNA BARBI testing to confirm or exclude active Hepatitis C Virus infection. Screening test Positive samples with high index values (>11.0) usually (95%) confirm Positive, but <5 of every 100 samples with this result might be a false positive and Hep C RNA BARBI testing will aid in patient management. 3 Negative: HCV RNA Not Detect ed Performed at: [address] [id number] B[address] Developer: René Orlando MD, Phone: [phone] Procedures Date Code Description Status 10/15/2020 66297 Office/Outpatient Established Lo w MDM 20-29 Min Completed 08/29/2020 33737 Office/Outpatient Established Lo w MDM 20-29 Min Completed 08/06/2020 04356 Office/Outpatient Established Lo w MDM 20-29 Min Completed 07/12/2020 25396 Office/Outpatient New Low MDM 30 -44 Minutes Completed Encounters Type Date Location Provider Dx Diagnosis Office Visit 10/15/2020 10:00a [facility] LAURA Garcia J01.10 Acute frontal sinusitis, uns pecified Office Visit 08/29/2020 9:45a [facility] LAURA Garcia J01.10 Acute frontal sinusitis, uns pecified F41.9 Anxiety disorder, unspecifie d G47.00 Insomnia, unspecified Office Visit 08/06/2020 12:00p [facility] LAURA Garcia G93.0 Cerebral cysts F41.9 Anxiety disorder, unspecifie d J35.8 Other chronic diseases of to nsils and adenoids Office Visit 07/12/2020 10:30a [facility] LAURA Garcia F41.9 Anxiety disorder, unspecifie d G47.00 Insomnia, unspecified Z02.79 Encounter for issue of other medical certificate Assessments Date Code Description Provider 10/15/2020 J01.10 Acute frontal sinusitis, unspeci fied LAURA Miller 08/29/2020 J01.10 Acute frontal sinusitis, unspeci fied LAURA Miller 08/29/2020 F41.9 Anxiety disorder, unspecified LAURA Carter 08/29/2020 G47.00 Insomnia, unspecified LAURA Miller 08/06/2020 G93.0 Cerebral cysts LAURA Davidson 08/06/2020 F41.9 Anxiety disorder, unspecified LAURA Carter 08/06/2020 J35.8 Other chronic diseases of tonsil s and adenoids LAURA Miller 07/12/2020 F41.9 Anxiety disorder, unspecified LAURA Carter 07/12/2020 G47.00 Insomnia, unspecified LAURA Miller 07/12/2020 Z02.79 Encounter for issue of other med ical certificate LAURA Miller Referrals Refer to Reason for Referral Status Appt Date [facility] Neurology CREDO PATIENT WITH H/O CYSTI C LESION OF THE BRAIN SINCE CHILDHOOD. . HAS NOT HAD ANY FOLLOW UP IN 10 YEARS . PLEASE EVAL AND TREAT. (NO RECORDS AVAILABLE) Sent [address] [place] [id number] [phone] [facility] - ENT PATIENT WITH C/O TONSILAR ST ONES AND RECURRENT PHARYNGITIS . PLEASE EVAL AND TREAT Sent 08/20/[address] [place] [address] [phone]
--- OUTSIDE RECORDS SUMMARY | 2021-01-06 08:02 | CCD | Continuity of Care Document ---
Author Author Teri KEITH Organization Unknown Address [address] [facility] [address] [place] [address] Phone [phone] Care Team Providers Care Automated Cutting Machine Operator Name Role Phone JAVIER KEITH AUTM [phone] Social History Type Date Description Comments Sex Unknown Results Test Acquired Date Facility Test Result H/L Range Note Ua Routine 07/15/[address] [address] [phone] Appearance, Urine CLEAR Normal Clear Color, Urine STRAW Normal Yellow PH,Urine 7.0 units Normal 5.0-9.0 Specific [place] Urine Auto 1.003 Normal 1.002-1.035 Protein, Urine [...] Normal 0-1 CBC With Differential 07/15/[address] [address] [phone] White Blood Count 5.3 10 Normal 4.0-10.0 [...] 36.0-66.0 Lymph % 32.5 % Normal 24.0-44.0 [place] % 8.7 % High 2.0-8.0 Eos % 2.1 % Normal 0.0-3.0 Baso % 0.4 % Normal 0.0-1.0 Immature Granulocyte % 0.4 % Normal 0-3.0 Nucleated Red Blood Cell % 0.0 % Normal 0-0 Neutrophils # 3.0 10 Normal 1.5-8.5 Lymph # 1.7 10 Normal 1.5-5.0 [place] # 0.5 10 Normal 0.0-0.8 Eos # 0.1 10 Normal 0.0-0.5 Baso # 0.0 10 Normal 0.0-0.2 Comprehensive Metabolic Profil 07/15/[address] [address] [phone] Glucose, Fasting 93 mg/dL Normal 70-100 Blood [...] Ratio 0.9 Low 1.2-2.2 Hepatitis Profile 07/15/2020 [facility] [address] [place] [address] [phone] Hepatitis C Virus Lexii Index > 11.0 INDEX High <0 .8 2 Hepatitis B Surface Antigen NEGATIVE Normal Negative Hepatitis B Core Antibody Igm NEGATIVE Normal Negative Hepatitis A Antibody Igm NEGATIVE Normal Negative Laboratory test finding 07/15/2020 [facility] [address] [place] [address] [phone] HCV Rna Barbi Qualitative Negative Normal Negative 3 1 Units are mL/min/1.73 m2 Chronic Kidney Disease Staging per NKF: Stage I & II GFR >=60 Normal to Mildly Decreased Stage III GFR 30-59 Moderately Decreased Stage IV GFR 15-29 Severely Decreased Stage V GFR <15 Very Little GFR Left ESRD GFR <15 on SHREDDED FILLER CIGAR MAKER MACHINE 2 This screening test for Hepa titis C Virus was above the 1.0 cutoff index value and will be sent to reference lab [facility], [address] [facility] [address] [place], [place]. [address] for Hep C RNA BARBI testing to confirm or exclude active Hepatitis C Virus infection. Screening test Positive samples with high index values (>11.0) usually (95%) confirm Positive, but <5 of every 100 samples with this result might be a false positive and Hep C RNA BARBI testing will aid in patient management. 3 Negative: HCV RNA Not Detect ed Performed at: [address] [id number] [employer] Lineworker: René Orlando MD, Phone: [phone] Procedures Date Code Description Status 11/06/2020 49824 Office/Outpatient Established SF MDM 10-19 Min Completed 10/15/2020 56023 Office/Outpatient Established Lo w MDM 20-29 Min Completed 08/29/2020 34303 Office/Outpatient Established Lo w MDM 20-29 Min Completed 08/06/2020 35705 Office/Outpatient Established Lo w MDM 20-29 Min Completed 07/12/2020 63138 Office/Outpatient New Low MDM 30 -44 Minutes Completed Encounters Type Date Location Provider Dx Diagnosis Office Visit 11/06/2020 12:30p [facility] LAURA Garcia R05 Cough Office Visit 10/15/2020 10:00a [facility] LAURA Garcia J01.10 Acute frontal sinusitis, uns pecified Office Visit 08/29/2020 9:45a [facility] LAURA Garcia J01.10 Acute frontal sinusitis, uns pecified F41.9 Anxiety disorder, unspecifie d G47.00 Insomnia, unspecified Office Visit 08/06/2020 12:00p [facility] LAURA Garcia G93.0 Cerebral cysts F41.9 Anxiety disorder, unspecifie d 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 . HAS NOT HAD ANY FOLLOW UP IN 10 YEARS . PLEASE EVAL AND TREAT. (NO RECORDS AVAILABLE) Sent [address] [place] [address] [phone] [facility] - ENT PATIENT WITH C/O TONSILAR ST ONES AND RECURRENT PHARYNGITIS . PLEASE EVAL AND TREAT Sent 08/20/2020 [address] [facility] [address] [place] [address] [phone]
--- OUTSIDE RECORDS SUMMARY | 2021-01-06 08:02 | CCD | Continuity of Care Document ---
Author Author [facility] Organization [facility] Address Unknown Phone Unavailable Care Team Providers Care Clinic Nurse Name Role Phone Dwello Kathy SANCHEZ Unavailable Unavailable Allergies, Adverse Reactions, Alerts Substance Reaction Status Criticality No Known Allergies Active No Information Medications Medication Instructions Dosage Effective Dates (start - stop) Sta tus Comments Sublocade 100 mg/0.5 mL solution,extended release subc utaneous syringe inject 0.5 milliliter by subcutaneous route every month in the abdomen rotating injection sites 100 MG - Active metronidazole 500 mg tablet 1 tab po bid x 7d (#14) Au - No Longer Active methadone 10 mg/5 mL oral solution - 21 No Longer Active Problems Condition Effective Dates (start - stop) Clinical Status C omments Other sex counseling Acute vaginitis Other specified [...] screening for human immunodeficiency virus STI Screening SUPERVISOR SHEARING Exam, Routine [facility] HIV Counseling OCP, Start STI Counseling [facility] Procedures Procedure Date URINE TEST ASSAY OF BODY FLUID ACIDITY SMEAR, WET [place], SALINE/INK OFFICE/OUTPATIENT VISIT, [facility] CVR Blood Pressure CVR Med.Svc. Height/Weight CVR Med.Svc. Vaginitis Rx CVR Cdl Instructor.Svc. STI / H Results Test Name Date and Time Measure Units Reference Range Abnormal Flag St atus Comments Panel Description: Wet Prep Final Wet Prep 08:53:41 Hyphae/Juanita: no; Budding yeast: no; Trich: no; Clue cells: yes (>=20%); WBCs: no; Amine/Whiff test: positive; pH: 5.5 A Final Panel Description: Vaginal pH Final Vaginal pH 08:53:26 pH: 5.5. Final Panel Description: High Sensitivity Urine Test Fi nal High Sensitivity Urine Test 08:42:12 N egativeLot: [id number]: 02/21/2022 Final Advance Directives Directive Yes / No Effective Date File Name No Information Encounters Encounter Description Practice Location Reason(s) For Visit Diagnose s Date Provider Providers Copied on Encounter OFFICE/OUTPATIENT VISIT, [facility], [address] [place] [address], [id number], tel:[phone] [facility] [employer] [place] Vaginal Odor (chief complaint)Vaginal Discharge (chief complaint) Other sex counselingAcute vaginitisOther specified noninflammatory disorders of vaginaEncounter for oth general cnsl and advice on contraceptionEncounter for test, result negative Ana William. [address] [place] [address], [id number], . tel:[phone] Referring Provider: Kathy Perez, [address] [place] [address], [id number]. tel:[phone] [facility], [address] [place] [address], [id number], [place] tel:[phone] [facility] [place] Human immunodeficie ncy virus [HIV] counseling Elroy Marquez. [address] [place] [address], [id number]. tel:[phone] Referring Provider: Alma Abbasi, [address] [place] [address], [id number]. tel:[phone] [facility], [address] [place] [address], [id number], tel:[phone] [facility] Human immunodeficie ncy virus [HIV] counselingEncounter for test, result negativeOther specified noninflammatory disorders of vaginaAcute vaginitisEncounter for oth general cnsl and advice on contraceptionEncounter for screening for human immunodeficiency virus Saundar Ennis. [address] [place] [address], [id number], [place]. tel:[phone] Referring Provider: Loli mac, [address] [place] [address], [address] [place] [address]. tel:[phone] [facility] [address], [id number], tel:[phone] [facility] STI ScreeningGYN Ex am, Routine WWEHIV CounselingOCP, StartSTI CounselingBV Katiana Jimenez. [address] [place] [address], [id number]. tel:[phone] Family History Family Member Diagnosis Age At Onset Father Alcoholism Mother High cholesterol Father Diabetes mellitus Immunizations Vaccine Date Status Comments measles, mumps and rubella virus vaccine adminis tered Note: Dates Unknown, Attended [employer] [facility] schools.Invalid documented admin date was NULL/NULL/2013. ; Source: Source Unspecified rubella virus vaccine administered Note: Date s Unknown, Attended [facility] [place].Invalid documented admin date was NULL/NULL/2013. ; Source: Source Unspecified tetanus toxoid, adsorbed administered Note: D ates Unknown, Attended [employer] [facility] schools.Invalid documented admin date was NULL/NULL/2013. ; Source: Source Unspecified varicella virus vaccine administered Note: Da bronson Unknown, Attended [employer] [facility] schools.Invalid documented admin date was NULL/NULL/2013. ; Source: Source Unspecified hepatitis A and hepatitis B vaccine administered Note: Dates Unknown, Attended [facility] [employer].Invalid documented admin date was NULL/NULL/2013. ; Source: Source Unspecified hepatitis A vaccine, adult dosage administered Note: Dates Unknown, Attended [facility] [employer].Invalid documented admin date was NULL/NULL/2013. ; Source: Source Unspecified hepatitis B vaccine, adult dosage administered Note: Dates Unknown, Attended [facility] [employer].Invalid documented admin date was NULL/NULL/2013. ; Source: Source Unspecified Payers Payer name Insurance type Covered democrat ID Authorization(s ) [facility] CI [id number] Social History Type Description Quantity Date Captured Comments Alcohol Use Details Unknown Caffeine Use Details Unknown Tobacco Use Status Smoking Status Light tobacco smoker Sex Female Vital Signs Date / Time: Height Weight BMI Pulse Rate Blood Pressure Temperatu re Respiratory Rate Body Surface Area Head Circumference BMI percentile Pulse Ox In haled Ox No Information Chief Complaint And Reason For Visit Most recent encounter only, dated '10/02/2020 08:15'. Vaginal Odor (chief complaint) Vaginal Discharge (chief complaint) Reason For Referral Reason For Referral No [...] on No Information Assessments Type Assessment Date assessment Other sex counseling assessment Acute vaginitis assessment Other specified noninflammatory disorder s of vagina assessment Encounter for oth general cnsl and advic e on contraception assessment Encounter for test, result neg ative Goals Health Concern Goal Type Priority Status Date No Information Medical Equipment Description Device [place] Device Identifier Effective Gabriel es (start - stop) Status No Information Mental Status Date Cognitive Assessment No Information Health Concerns Observation Date No Information Concern Status Date No Information Physical Examination Exam Findings Details Neurological Normal Level of consciousne ss - Normal. Orientation - Normal. Genitourinary Normal Urethral meatus - No rmal. Urethra - Normal. External genitalia - Normal. Cervix - Normal. Genitourinary * Vagina - white cream y discharge w/o odor.
--- OUTSIDE RECORDS SUMMARY | 2021-01-06 08:02 | CCD | Continuity of Care Document ---
Author Author Teri LAST MD Organization Unknown Address [address] [facility], [address] [place] [address] Phone [phone] Care Team Providers Care Piece Jobber Name Role Phone Javier Keith AUTM [phone] Problems Active Problems Provider Date Chronic tonsillitis [...] lb BMI (Body Mass Index) 27.7 kg/m2 [place] Body Weight 135 lb Weight 80.287 kg BSA (Body Surface Area) 1.92 m2 09/25/2020 9:41am BP Systolic 120 mmHg BP Diastolic 78 mmHg Heart Rate 64 /min O2 % BldC Oximetry 98 % Height 67 inches 5'7" Weight 183.00 lb BMI (Body Mass Index) 28.7 kg/m2 [place] Body Weight 135 lb Weight 83.009 kg BSA (Body Surface Area) 1.95 m2 Results Description No Information Available Procedures Date Code Description Status 09/25/2020 55081 Office/Outpatient Established Lo w MDM 20-29 Min Completed 08/20/2020 05186 Office/Outpatient New Moderate M DM 45-59 Minutes Completed Medical Devices Description No Information Available Encounters Type Date Location Provider Dx Diagnosis Office Visit 09/25/2020 9:45a [facility] Licha Galvez J35.01 Chronic tonsillitis Office Visit 08/20/2020 9:15a [facility] Licha Galvez J35.01 Chronic tonsillitis Assessments Date Code Description Provider 12/05/2020 J35.01 Chronic tonsillitis Colby Last MD 09/25/2020 J35.01 Chronic tonsillitis Colby Last MD 08/20/2020 J35.01 Chronic tonsillitis Colby Last MD Plan of Treatment 12/05/2020 - Colby Last MD* J35.01 Chronic tonsillitis* Comments:* She would still like to proceed with the tonsillectomy. We reviewed the risks and benefits and all questions were answered. She will avoid any NSAID type produc ts and Multivite for 2 weeks prior to the procedure. I spoke with the [facility] facility who will manage her post operative pain management. They will continue with her Suboxone, Tylenol, and magic mouthwash. If this is not controlling the pain, they will adjust her medication as they feel necessary. Functional Status Description No Information Available Mental Status Description No Information Available Referrals Refer to Reason for Referral Status Appt Colby Last M.D. 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
--- OUTSIDE RECORDS SUMMARY | 2021-01-06 08:02 | CCD | Continuity of Care Document ---
[facility] [place] Organization [facility] Address Unknown Phone Unavailable Care Team Providers Care Potato Chip Sacking Machine Operator Name Role Phone Indio RELIABILITY TECHNICIANMandie Unavailable Unavailable Allergies, Adverse Reactions, Alerts Substance [...] cnsl and advice on contraception Encntr for financial dealers exam (general) (routine) w abnormal findings Encntr [...] screening for human immunodeficiency virus STI Screening MISSION WORKER Exam, Routine [facility] HIV Counseling OCP, Start STI Counseling [facility] Procedures Procedure Date PREV VISIT, EST, AGE 18-39 CYTOPATH, C/V, THIN LAYER HPV, DNA, AMP PROBE HIGH RISK CYTOPATH, C/V, INTERPRET JUANITA, DNA, DIR PROBE OROURKE VAG, DNA, DIR PROBE TRICHOMONAS VAGIN, DIR PROBE HCS Without Test CVR Blood Pressure CVR Med.Svc. Height/Weight CVR Ophthalmic Surgical Assistant.Svc. Contraceptive CVR Ophthalmic Surgical Assistant.Svc. Other CVR Ophthalmic Surgical Assistant.Svc. STI / H Results Test Name Date and Time Measure Units Reference Range Abnormal Flag St atus Comments Panel Description: Affirm-Vaginitis Panel Final Trichomonas vaginalis 00:00:00 Not Detected Not Dete cted Final Performed by:
CDD ([id number])

Gardnerella vaginalis 00:00:00 DETECTED Not Detected A Final Performed by:
CDD ([id number])

Juanita species 00:00:00 Not Detected Not Detected Final A positive (detected) result for Juanita, Gardnerella and/or Trichomonas means nucleic acid for Juanita species,G. vaginalis and/or T. vaginalis, respectively is presentin the sample and indicates the patient has candidiasis,bacterial vaginosis, and/or trichomoniasis when consistentwith clinical signs and symptoms. Simultaneous infectionsby more than one organism are common.Negative results (not detected) for Juanita, Gardnerella orTrichomonas tests suggest the patient does not havecandidiasis, bacterial vaginosis and/or trichomoniasis,respectively, when consistent with clinical signs andsymptoms.P regreubent: NoThis information has been disclosed to you from confidential records which are protected by law. Privacy laws prohibityou from making any further disclosure of this information without the specific written consent of the person to whom itpertains, or otherwise permitted by law. Any unauthorized further disclosure in violation of the law may result in a fineor snf sentence or both. A general authorization for the release of medical or other information is not, except inlimited circumstances set forth in this part, sufficient authorization for further disclosure.This document contains private and confidential health information protected by state and federal law. If youhave received this document in error, please call the Application Packaging Specialist for CDD at ext [phone] ore-mail [email or web address]

Performed by:
CDD ([id number])

Advance Directives Directive Yes / No Effective Date File Name No Information Encounters Encounter Description Practice Location Reason(s) For Visit Diagnose s Date Provider Providers Copied on Encounter PREV VISIT, EST, AGE 18-39 [facility] [address] [place] [address], [address] [place] [address], tel:[phone] [facility] Prevent ative Visit (chief complaint) Encounter for oth general cnsl and advic e on contraceptionEncntr for financial dealers exam (general) (routine) w abnormal findingsEncntr screen for infections w sexl mode of transmissHuman immunodeficiency virus [HIV] counselingOther sex counselingAcute vaginitisOther specified noninflammatory disorders of vaginaPelvic and perineal pain Indio Gao. [address] [place] [address], [id number], [place]. tel:[phone] Referring Provider: Mandie Borjas, [address] [place] [address], [id number]. tel:[phone] [facility] [address] [place] [address], [id number], [place] tel:[phone] [facility] Other sex counselin gAcute vaginitisOther specified noninflammatory disorders of vaginaEncounter for oth general cnsl and advice on contraceptionEncounter for test, result negative Ana William. [address] [place] [address], [id number], [place]. tel:[phone] Referring Provider: Kathy Perez, [address] [place] [address], [id number]. tel:[phone] [facility], [address] [place] [address], [id number], tel:[phone] [facility] Human immunodeficie ncy virus [HIV] counseling Jessethuy Marquez. [address] [place], [place], [id number]. tel:[phone] Referring Provider: Alma Abbasi, [address] [place] [address], [id number]. tel:[phone] [facility], [address] [place] [address], [id number], tel:[phone] [facility] [place] Human immunodeficie ncy virus [HIV] counselingEncounter for test, result negativeOther specified noninflammatory disorders of vaginaAcute vaginitisEncounter for oth general cnsl and advice on contraceptionEncounter for screening for human immunodeficiency virus Saundra Ennis. [address] [place], [place], [id number], . tel:[phone] Referring Provider: Loli mac, [address] [place] [address], [id number]. tel:[phone] [facility], [address] [place] [address], [id number], tel:[phone] [facility] STI ScreeningGYN Ex am, Routine WWEHIV CounselingOCP, StartSTI CounselingBV Katiana Jimenez. [address] [place], [place], [id number]. tel:[phone] Family History Family Member Diagnosis Age At [...] vaccine adminis tered Note: Dates Unknown, Attended [facility].Invalid documented admin date was NULL/NULL/2013. ; Source: Source Unspecified rubella virus vaccine administered Note: Date s Unknown, Attended [facility].Invalid documented admin date was NULL/NULL/2013. ; Source: Source Unspecified tetanus toxoid, adsorbed administered Note: D ates Unknown, Attended [facility].Invalid documented admin date was NULL/NULL/2013. ; Source: Source Unspecified varicella virus vaccine administered Note: Da bronson Unknown, Attended [facility].Invalid documented admin date was NULL/NULL/2013. ; Source: Source Unspecified hepatitis A and hepatitis B vaccine administered Note: Dates Unknown, Attended [facility].Invalid documented admin date was NULL/NULL/2013. ; Source: Source Unspecified hepatitis A vaccine, adult dosage administered Note: Dates Unknown, Attended [facility].Invalid documented admin date was NULL/NULL/2013. ; Source: Source Unspecified hepatitis B vaccine, adult dosage administered Note: Dates Unknown, Attended [facility].Invalid documented admin date was NULL/NULL/2013. ; Source: Source Unspecified Payers Payer name Insurance type Covered libertarian ID Authorization(s ) [facility] [id number] Social History Type Description Quantity Date Captured Comments Alcohol Use Details Unknown Caffeine Use Details Unknown Tobacco Use Status Current non-smoker Smoking Status Never smoker Non-Smoking Tobacco Use Details : No Details Available : No Details Available Sex Female Vital Signs Date / Time: Height Weight BMI Pulse Rate Blood Pressure Temperatu re Respiratory Rate Body Surface Area Head Circumference BMI percentile Pulse Ox In haled Ox 10:26 AM 67.00 in 120/77 mm[Hg] Chief Complaint And Reason For Visit Most recent encounter only, dated '12/04/2020 10:00'. Preventative Visit (chief complaint) Reason For Referral Reason For Referral No Information Plan Of Treatment Date Type Action Status Goal Tobacco cessation counseling com pleted Goal Tobacco cessation counseling com pleted Goal Tobacco cessation counseling Terapio pleted History Of Present Illness Encounter Date Complaint History Of Present I llness No Information Functional Status Date Functional Assessment No Information Medications Administered Medication Instructions Dosage Effective Dates (start - stop) Sta tus Comments No Information Instructions Date Instruction Additional Informati on No Information Assessments Type Assessment Date assessment Encounter for oth general cnsl and advic e on contraception assessment Encntr for financial dealers exam (general) (routine) w abnormal findings assessment Encntr screen for infections w sexl mode of transmiss assessment Human immunodeficiency virus [HIV] couns eling assessment Other sex counseling assessment Acute vaginitis assessment Other specified noninflammatory disorder s of vagina assessment Pelvic and perineal pain Goals Health Concern Goal Type Priority Status Date No Information Medical Equipment Description Device [place] Device Identifier Effective Gabriel es (start - stop) Status No Information Mental Status Date Cognitive Assessment No Information Health Concerns Observation Date No Information Concern Status Date No Information Physical Examination Exam Findings Details Abdomen Normal Inspection - Normal. Anterior palpation - Normal. No abdominal tenderness. No hepatic enlargement. No splenic enlargement. No palpable mass. Cardiovascular Normal Heart rate - Regular rate. Rhythm - Regular. Heart sounds - Normal S1, Normal S2. Murmurs - None. Extremities - No edema. Extremity Normal No Cyanosis. No Johny a. Neck Exam Normal Inspection - Normal. Palpation - Normal. Thyroid gland - Normal. Cervical lymph nodes - Normal. Neurological Normal Level of consciousne ss - Normal. Orientation - Normal. Respiratory Normal Inspection - Normal. Auscultation - Normal. Effort - Normal. Skin Normal Inspection - Normal. Palpation/texture - Normal. Breast Normal Inspection - Bilater al: Normal. Palpation - Bilateral: Normal. Nipples - Bilateral: Normal. Lymph nodes - Normal. Genitourinary Comments Bimanual exam not in dicated. Genitourinary Normal Urethral meatus - No rmal. External genitalia - Normal. Glands - Normal. Perineum - Normal. Vagina - Normal. Cervix - Normal.
--- OUTSIDE RECORDS SUMMARY | 2021-01-06 08:03 | CCD ---
Author Author [facility] Organization [facility] Address Unknown Phone Unavailable Care Team Providers Care Assemblyman Or Woman Name Role Phone Kiersten Goodson Unavailable Green FRONTLOAD DRIVER FRONTLOAD DRIVER, Mandie Unavailable Unavailable Green FRONTLOAD DRIVER FRONTLOAD DRIVER, Mandie Unavailable Unavailable Green FRONTLOAD DRIVER FRONTLOAD DRIVER, Mandie Unavailable Unavailable Green FRONTLOAD DRIVER FRONTLOAD DRIVER, Mandie Unavailable Unavailable Green FRONTLOAD DRIVER FRONTLOAD DRIVER, Mandie Unavailable Unavailable Grayson Oleary MD Unavailable Unavailable Grayson Oleary MD Unavailable Unavailable Grayson Oleary MD Unavailable Unavailable Grayson Oleary MD Unavailable Unavailable Grayson Oleary MD Unavailable Unavailable Grayson Oleary MD Unavailable Unavailable Grayson Oleary MD Unavailable Unavailable Grayson Oleary MD Unavailable Unavailable Grayson Oleary MD Unavailable Unavailable Grayson Oleary MD Unavailable Unavailable Grayson Oleary MD Unavailable Unavailable Grayson Oleary MD Unavailable Unavailable Grayson Oleary MD Unavailable Unavailable Grayson Oleary MD Unavailable Unavailable Grayson Oleary MD Unavailable Unavailable Grayson Oleary MD Unavailable Unavailable Grayson Oleary MD Unavailable Unavailable Grayson Oleary MD Unavailable Unavailable Grayson Oleary MD Unavailable Unavailable Grayson Oleary MD Unavailable Unavailable Grayson Oleary MD Unavailable Unavailable Anirudh, Grayson Evangelista MD Unavailable Unavailable Anirudh, Grayson Evangelista MD Unavailable Unavailable Anirudh, Grayson Evangelista MD Unavailable Unavailable Anirudh, Grayson Evangelista MD Unavailable Unavailable Anirudh, A Tonja ALVARES Unavailable Unavailable Anirudh, A Tonja ALVARES Unavailable Unavailable Anirudh, Grayson Evangelista MD Unavailable Unavailable Anirudh, Grayson Evangelista MD Unavailable Unavailable Anirudh, Grayson Evangelista MD Unavailable Unavailable Anirudh, Grayson Evangelista MD Unavailable Unavailable Anirudh, Grayson Evangelista MD Unavailable Unavailable Anirudh, Grayson Evangelista MD Unavailable Unavailable Anirudh, A Tonja ALVARES Unavailable Unavailable Anirudh, A Tonaj ALVARES Unavailable Unavailable Anirudh, Grayson Evangelista MD Unavailable Unavailable Anirudh, Grayson Evangelista MD Unavailable Unavailable Anirudh, Grayson Evangelista MD Unavailable Unavailable Anirudh, A Tonja ALVARES Unavailable Unavailable Anirudh, A Tonja ALVARES Unavailable Unavailable Anirudh, A Tonja ALVARES Unavailable Unavailable Anirudh, A Tonja ALVARES Unavailable Unavailable Nairudh, A Tonja ALVARES Unavailable Unavailable Anirudh, A Tonja ALVARES Unavailable Unavailable Anirudh, A Tonja ALVARES Unavailable Unavailable Anirudh, Grayson Evangelista MD Unavailable Unavailable Anirudh, A Tonja ALVARES Unavailable Unavailable Anirudh, A Tonja ALVARES Unavailable Unavailable Anirudh, A Tonja ALVARES Unavailable Unavailable Anirudh, A Tonja ALVARES Unavailable Unavailable Anirudh, A Tonja ALVARES Unavailable Unavailable Anirudh, Grayson Evangelista MD Unavailable Unavailable Anirudh, Grayson Evangelista MD Unavailable Unavailable Anirudh, Grayson Evangelista MD Unavailable Unavailable Anirudh, A Tonja ALVARES Unavailable Unavailable Anirudh, A Tonja ALVARES Unavailable Unavailable Anirudh, A Tonja ALVARES Unavailable Unavailable Anirudh, A Tonja ALVARES Unavailable Unavailable Anirudh, A Tonja ALVARES Unavailable Unavailable Anirudh, A Tonja ALVARES Unavailable Unavailable Anirudh, Grayson Evangelista MD Unavailable Unavailable Anirudh, Grayson Evangelista MD Unavailable Unavailable Anirudh, Grayson Evangelista MD Unavailable Unavailable Anirudh, Grayson Evangelista MD Unavailable Unavailable Anirudh, Grayson Evangelista MD Unavailable Unavailable Anirudh, Grayson Evangelista MD Unavailable Unavailable Anirudh, Grayson Evangelista MD Unavailable Unavailable Anirudh, Grayson Evangelista MD Unavailable Unavailable Anirudh, Grayson Evangelista MD Unavailable Unavailable Anirudh, Grayson Evangelista MD Unavailable Unavailable Anirudh, Grayson Evangelista MD Unavailable Unavailable Anirudh, Grayson Evangelista MD Unavailable Unavailable Anirudh, Grayson Evangelista MD Unavailable Unavailable Anirudh, A Tonja ALVARES Unavailable Unavailable Anirudh, A Tonja ALVARES Unavailable Unavailable Anirudh, A Tonja ALVARES Unavailable Unavailable Anirudh, Grayson Evangelista MD Unavailable Unavailable Anirudh, Grayson Evangelista MD Unavailable Unavailable Anirudh, Grayson Evangelista MD Unavailable Unavailable Anirudh, Grayson Evangelista MD Unavailable Unavailable Anirudh, Grayson Evangelista MD Unavailable Unavailable Anirudh, Grayson Evangelista MD Unavailable Unavailable Dwello PA PA, Kathy Unavailable Unavailable Dwello PA PA, Kathy Unavailable Unavailable Dwello PA PA, Kathy Unavailable Unavailable Dwello PA PA, Kathy Unavailable Unavailable Dwello PA PA, Kathy Unavailable Unavailable Dwello PA PA, Kathy Unavailable Unavailable Dwello PA PA, Kathy Unavailable Unavailable Dara Christiansen Unavailable Unavailable TONTARSKI, G HUE PA Unavailable Unavailable TONTARSKI, G HUE PA Unavailable Unavailable TONTARSKI, G HUE PA Unavailable Unavailable TONTARSKI, G HUE PA Unavailable Unavailable TONTARSKI, G HUE PA Unavailable Unavailable TONTARSKI, G HUE PA Unavailable Unavailable TONTARSKI, G HUE PA Unavailable Unavailable TONTARSKI, G HUE PA Unavailable Unavailable TONTARSKI, G HUE PA Unavailable Unavailable TONTARSKI, G HUE PA Unavailable Unavailable TONTARSKI, G HUE PA Unavailable Unavailable TONTARSKI, G HUE PA Unavailable Unavailable TONTARSKI, G HUE PA Unavailable Unavailable TONTARSKI, G HUE PA Unavailable Unavailable TONTARSKI, G HUE PA Unavailable Unavailable TONTARSKI, G HUE PA Unavailable Unavailable TONTARSKI, G HUE PA Unavailable Unavailable TONTARSKI, G HUE PA Unavailable Unavailable TONTARSKI, G HUE PA Unavailable Unavailable TONTARSKI, G HUE PA Unavailable Unavailable TONTARSKI, G HUE PA Unavailable Unavailable TONTARSKI, G HUE PA Unavailable Unavailable TONTARSKI, G HUE PA Unavailable Unavailable TONTARSKI, G HUE PA Unavailable Unavailable TONTARSKI, G HUE PA Unavailable Unavailable TONTARSKI, G HUE PA Unavailable Unavailable TONTARSKI, G HUE PA Unavailable Unavailable TONTARSKI, G HUE PA Unavailable Unavailable TONTARSKI, G HUE PA Unavailable Unavailable TONTARSKI, G HUE PA Unavailable Unavailable TONTARSKI, G HUE PA Unavailable Unavailable TONTARSKI, G HUE PA Unavailable Unavailable TONTARSKI, G HUE PA Unavailable Unavailable TONTARSKI, G HUE PA Unavailable Unavailable TONTARSKI, G HUE PA Unavailable Unavailable TONTARSKI, G HUE PA Unavailable Unavailable TONTARSKI, G HUE PA Unavailable Unavailable TONTARSKI, G HUE PA Unavailable Unavailable TONTARSKI, G HUE PA Unavailable Unavailable TONTARSKI, G HUE PA Unavailable Unavailable TONTARSKI, G HUE PA Unavailable Unavailable TONTARSKI, G HUE PA Unavailable Unavailable TONTARSKI, G HUE PA Unavailable Unavailable TONTARSKI, G HUE PA Unavailable Unavailable TONTARSKI, G HUE PA Unavailable Unavailable TONTARSKI, G HUE PA Unavailable Unavailable TONTARSKI, G HUE PA Unavailable Unavailable Berhane, Elis Bowman PH.D., M.D. Unavailable Unavailable Berhane, Elis Bowman PH.D., M.D. Unavailable Unavailable Berhane, Elis Bowman PH.D., M.D. Unavailable Unavailable Berhane, Elis Bowman PH.D., M.D. Unavailable Unavailable Berhane, Elis Bowman PH.D., M.D. Unavailable Unavailable Berhane, Elis Bowman PH.D., M.D. Unavailable Unavailable Berhane, Elis Bowman PH.D., M.D. Unavailable Unavailable Berhane, Elis Bowman PH.D., M.D. Unavailable Unavailable Berhane, Elis Bowman PH.D., M.D. Unavailable Unavailable Berhane, Elis Bowman PH.D., M.D. Unavailable Unavailable Berhane, Elis Bowman PH.D., M.D. Unavailable Unavailable Berhane, Elis Bowman PH.D., M.D. Unavailable Unavailable Berhane, Elis Bowman PH.D., M.D. Unavailable Unavailable Berhane, Elis Bowman PH.D., M.D. Unavailable Unavailable Berhane, Elis Bowman PH.D., M.D. Unavailable Unavailable Berhane, Elis Bowman PH.D., M.D. Unavailable Unavailable Berhane, Elis Bowman PH.D., M.D. Unavailable Unavailable Berhane, Elis Bowman PH.D., M.D. Unavailable Unavailable Berhane, Elis Bowman PH.D., M.D. Unavailable Unavailable Berhane, Elis Bowman PH.D., M.D. Unavailable Unavailable Berhane, Elis Bowman PH.D., M.D. Unavailable Unavailable Berhane, Elis Bowman PH.D., M.D. Unavailable Unavailable Berhane, Elis Bowman PH.D., M.D. Unavailable Unavailable Berhane, Elis Bowman PH.D., M.D. Unavailable Unavailable Berhane, Elis Bowman PH.D., M.D. Unavailable Unavailable Berhane, C Colby PH.D., M.D. Unavailable Unavailable Berhane, C Colby PH.D., M.D. Unavailable Unavailable Berhane, C Colby PH.D., M.D. Unavailable Unavailable Berhane, C Colby PH.D., M.D. Unavailable Unavailable Berhane, C Colby PH.D., M.D. Unavailable Unavailable Berhane, C Colby PH.D., M.D. Unavailable Unavailable Berhane, C Colby PH.D., M.D. Unavailable Unavailable Berhane, C Colby PH.D., M.D. Unavailable Unavailable Berhane, C Colby PH.D., M.D. Unavailable Unavailable Berhane, C Colby PH.D., M.D. Unavailable Unavailable Berhane, C Colby PH.D., M.D. Unavailable Unavailable Berhane, C Colby PH.D., M.D. Unavailable Unavailable Berhane, C Colby PH.D., M.D. Unavailable Unavailable Berhane, C Colby PH.D., M.D. Unavailable Unavailable Berhane, C Colby PH.D., M.D. Unavailable Unavailable Berhane, C Colby PH.D., M.D. Unavailable Unavailable Berhane, C Colby PH.D., M.D. Unavailable Unavailable Berhane, C Colby PH.D., M.D. Unavailable Unavailable Berhane, C Colby PH.D., M.D. Unavailable Unavailable Berhane, C Colby PH.D., M.D. Unavailable Unavailable Berhane, C Colby PH.D., M.D. Unavailable Unavailable Berhane, C Colby PH.D., M.D. Unavailable Unavailable Berhane, C Colby PH.D., M.D. Unavailable Unavailable Berhane, C Colby PH.D., M.D. Unavailable Unavailable Berhane, C Colby PH.D., M.D. Unavailable Unavailable Berhane, C Colby PH.D., M.D. Unavailable Unavailable Berhane, C Colby PH.D., M.D. Unavailable Unavailable Berhane, C Colby PH.D., M.D. Unavailable Unavailable Berhane, C Colby PH.D., M.D. Unavailable Unavailable Berhane, C Colby PH.D., M.D. Unavailable Unavailable Berhane, C Colby PH.D., M.D. Unavailable Unavailable Berhane, C Colby PH.D., M.D. Unavailable Unavailable Berhane, C Colby PH.D., M.D. Unavailable Unavailable Berhane, C Colby PH.D., M.D. Unavailable Unavailable Berhane, Elis Bowman PH.D., M.D. Unavailable Unavailable Berhane, Elis Bowman PH.D., M.D. Unavailable Unavailable Berhane, Elis Bowman PH.D., M.D. Unavailable Unavailable Berhane, Elis Bowman PH.D., M.D. Unavailable Unavailable Berhane, Elis Bowman PH.D., M.D. Unavailable Unavailable Berhane, Elis Bowman PH.D., M.D. Unavailable Unavailable Berhane, Elis Bowman PH.D., M.D. Unavailable Unavailable Berhane, Elis Bowman PH.D., M.D. Unavailable Unavailable Berhane, Elis Bowman PH.D., M.D. Unavailable Unavailable Berhane, Elis Bowman PH.D., M.D. Unavailable Unavailable Berhane, Elis Bowman PH.D., M.D. Unavailable Unavailable Berhane, Elis Bowman PH.D., M.D. Unavailable Unavailable Berhane, Elis Bowman PH.D., M.D. Unavailable Unavailable Berhane, Elis Bowman PH.D., M.D. Unavailable Unavailable Berhane, Elis Bowman PH.D., M.D. Unavailable Unavailable Berhane, Elis Bowman PH.D., M.D. Unavailable Unavailable Berhane, Elis Bowman PH.D., M.D. Unavailable Unavailable Berhane, Elis Bowman PH.D., M.D. Unavailable Unavailable Berhane, Elis Bowman PH.D., M.D. Unavailable Unavailable Berhane, Elis Bowman PH.D., M.D. Unavailable Unavailable Berhane, Elis Bowman PH.D., M.D. Unavailable Unavailable Berhane, Elis Bowman PH.D., M.D. Unavailable Unavailable Berhane, Elis Bowman PH.D., M.D. Unavailable Unavailable Re-disclosure Warning The records that you are about to access may contain information from federally-assisted alcohol or drug abuse programs. If such information is present, then the following federally mandated warning applies: This information has been disclosed to you from records protected by federal confidentiality rules (42 CFR part 2). The federal rules prohibit you from making any further disclosure of this information unless further disclosure is expressly permitted by the written consent of the person to whom it pertains or as otherwise permitted by 42 CFR part 2. A general authorization for the release of medical or other information is NOT sufficient for this purpose. The Federal rules restrict any use of the information to criminally investigate or prosecute any alcohol or drug abuse patient.The records that you are about to access may contain highly sensitive health information, the redisclosure of which is protected by Article 27-F of the [facility] Public Health law. If you continue you may have access to information: Regarding HIV / AIDS; Provided by facilities licensed or operated by the [facility] Office of Mental Health; or Provided by the [facility] Office for People With Developmental Disabilities. If such information is present, then the following [facility] mandated warning applies: This information has been disclosed to you from confidential records which are protected by state law. State law prohibits you from making any further disclosure of this information without the specific written consent of the person to whom it pertains, or as otherwise permitted by law. Any unauthorized further disclosure in violation of state law may result in a fine or senior care sentence or both. A general authorization for the release of medical or other information is NOT sufficient authorization for further disc losure. Allergies and Adverse Reactions Type Description Substance Reaction Status Data Source(s ) Allergy to substance Allergy to substance No known drug allergy [facility] ([facility]) Family History Family Member Name Family Member Gender Family Member Status Date o f Status Description Data Source(s) Unknown Male Diagnosis 10/18/2013 12:00:00 AM EDT [facility] ([facility]) Unknown Male Diagnosis 10/18/2013 12:00:00 AM EDT [facility] ([facility]) Unknown Female Diagnosis 01/23/2019 12:00:00 AM EST [facility] ([facility]) Unknown Female Diagnosis 01/23/2019 12:00:00 AM EST [facility] ([facility]) Unknown Female Diagnosis 01/23/2019 12:00:00 AM EST [facility] ([facility]) Encounters Encounter Providers Location Date Indications Data Source(s ) Attender: Tonja Martines 11:13:00 AM EDT - 12/18/2020 11:13:00 AM EDT [facility] ([facility]) Attender: Tonja Martines 01:04:00 PM EDT - 12/13/2020 01:04:00 PM EDT [facility] ([facility]) Attender: Mandie Borjas FRONTLOAD DRIVER FRONTLOAD DRIVER [facility] [place] 1 07:15:00 AM EDT - 12/12/2020 07:15:00 AM EDT [facility] ([facility]) Attender: Mandie Borjas FRONTLOAD DRIVER FRONTLOAD DRIVER [facility] [place] 1 07:08:00 AM EDT - 12/06/2020 07:08:00 AM EDT [facility] ([facility]) Outpatient Attender: Colby Lats PH.D., M.D. Roxana/Aydee/Grayson bob/Reinleanna 12/05/2020 08:45:00 AM EDT [facility] ([facility] BRENDAN Sampson) OutpatientPREV VISIT, EST, AGE 18-39 Attender: Mandie Borjas FRONTLOAD DRIVER FRONTLOAD DRIVER [facility] [place] 12/04/2020 10:00:00 AM EDT - 12/04/2020 10:00:00 AM ED T Pelvic and perineal painOther specified noninflammatory disorders of vaginaAcute vaginitisOther sex counselingHuman immunodeficiency virus [HIV] counselingEncntr screen for infections w sexl mode of transmissEncntr for shake out worker exam (general) (routine) w abnormal findingsEncounter for oth general cnsl and advice on contraception [facility] ([facility]) Pelvic and perineal pain Other specified noninflammatory disorder s of vagina Acute vaginitis Other sex counseling Human immunodeficiency virus [HIV] couns eling Encntr screen for infections w sexl mode of transmiss Encntr for shake out worker exam (general) (routine) w abnormal findings Encounter for oth general cnsl and advic e on contraception Outpatient Attender: HUE boggs 11/06/2020 12:30:00 PM EDT [facility] ([facility]) Outpatient Attender: HUE boggs 10/15/2020 10:00:00 AM EDT [facility] ([facility] 10/02/2020 08:15:00 AM EDT - 10/02/2020 08:15:00 AM ED T Encounter for test, result negativeEncounter for oth general cnsl and advice on contraceptionOther specified noninflammatory disorders of vaginaAcute vaginitisOther sex counseling [facility] ([facility]) Encounter for test, result neg ative Encounter for oth general cnsl and advic e on contraception Other specified noninflammatory disorder s of vagina Acute vaginitis Other sex counseling Outpatient Attender: Colby Last PH.DYves, MKandis Schmidt/Aydee/Grayson bob/Zeferino 09/25/2020 09:45:00 AM EDT [facility] ([facility] Pamela aly ) Outpatient Attender: HUE SANCHEZ [facility] 08/29/2020 09:45:00 AM EDT [facility] ([facility]) Outpatient Attender: Colby Last PH.Yury, Makeda Schmidt/Aydee/Grayson bob/Zeferino 08/20/2020 09:15:00 AM EDT [facility] ([facility]ely [facility] ) Outpatient Attender: HUE SANCHEZ [facility] 08/06/2020 12:00:00 PM EDT [facility] ([facility]) Outpatient Attender: HUE SANCHEZ [facility] 07/12/2020 10:30:00 AM EDT [facility] ([facility]) Unlisted evaluation and management service Performer: Negro du 05/17/2020 05:55:00 PM EDT - 07/01/2020 06:12:00 PM EDT [facility] ([facility]) Unlisted evaluation and management service Performer: Negro du 05/16/2020 03:03:00 PM EDT - 06/21/2020 08:34:00 PM EDT [facility] ([facility]) Unlisted evaluation and management service Performer: Negro du 04/26/2020 05:54:00 PM EST - 05/16/2020 03:00:00 PM EDT [facility] ([facility]) Shelter - Case Management Attender: Kiersten Goodson [facility] 02/07/2020 09:45:00 AM EST - 02/07/2020 09:45:00 AM EST [facility] ([facility]) Attender: Kiersten Goodson 02/07/2020 12:00:[address] [facility] ([facility]) Brief Individual Psychotherapy - 20 min Attender: Kiersten jennings [facility] 01/30/2020 01:30:00 AM EST - 01/30/2020 01:30:00 AM EST [facility] ([facility]) Attender: Kiersten Goodson 01/30/2020 12:00:[address] [facility] ([facility]) Immunizations Vaccine Date Status Description Data Source(s) COVID-19 VACCINE Moderna 04/19/2020 12:00:00 AM EST completed [facility]SIIS Vaccine Series Complete: YESThis Data wa s Submitted to [facility] [employer]. COVID-19 VACCINE Moderna 03/22/2020 12:00:00 AM EST completed NYSIIS Vaccine Series Complete: NOThis Data was Submitted to [facility] [employer]. Medications Medication Brand Name Start Date Product Form Dose Route Admi nistrative Instructions Pharmacy Instructions Status Indications Reaction Description Data Source(s) Metronidazole 0.0075 MG/MG Vaginal Gel [MetroGel] Metr ogel Vaginal 0.75 % Metrogel Vaginal 0.75 % 12/04/2020 12:00:00 AM EDT active metronidazole 0.0075 MG/MG Vaginal Gel [MetroGel] [facility] ([facility]) Metronidazole 500 MG Oral Tablet metronidazole 500 mg tablet metronidazole 500 mg tablet 10/02/2020 12:00:00 AM EDT complete d 1 tab po bid x 7d (#14) [facility] ([facility]) Sublocade 300mg 06/04/2020 04:00:00 AM EDT 1.0 Unit Subcuta neous active [facility] () Methadone Hydrochloride 2 MG/ML Oral Tamika ution methadone 10 mg/5 mL oral solution methadone 10 mg/5 mL oral solution com pleted [facility] ([facility]) Insurance Providers Payer name Policy type / Coverage type Policy ID Covered democrat ID Covered democrat's relationship to huffman Policy Huffman Plan Information MEDICAID M [id number] Self [id number] [facility] MCDO [id number] SP [id number] [facility] [id number] SP [id number] Medicaid [id number] MEDICAID HEA [id number] S [id number] SELF PAY HEA [id number] S MEDICAID [id number] SP [id number] [employer] MCDO [id number] SP [id number] [facility] HEA [id number] S [id number] [employer] COMM[employer]AN MCDO [id number] SP [id number] [employer] COMM[employer] PLAN MCDO [id number] SP [id number] [facility] [id number] SP [id number] MEDICAID [id number] SP [id number] JENNIFER [id number] SP [id number] SELF PAY UNAVAILABLE UNAVAILA BLE POMCO [id number] SP [id number] JENNIFER [id number] SP [id number] [place] [id number] S [id number] [place] [id number] S [id number] PGBA [facility] O [id number] S [id number] PGBA [facility] [id number] SP [id number] [facility] MCDO [id number] SP [id number] Problems, Conditions, and Diagnoses Code Display Name Description Problem Type Effective Dates Data Source(s) J35.01 Chronic tonsillitis Chronic tonsillitis Problem 0 08/20/2020 12:00:00 AM EDT [facility] ([facility] ) USER-Legal Legal Legal Complaint 05/23/2020 12:00:00 PM ED T [facility] ([employer]) USER-Emotional Emotional/Behavioral/State of Change Emo tional/Behavioral/State of Change Complaint 05/23/2020 12:00:00 PM EDT [facility] ([facility]) USER-Biomedical Biomedical Biomedical Complaint 05/23/2020 12:00:00 PM EDT [facility] ([employer]) USER-Addiction Addiction/Abstinence/Withdrawal Addiction/Abstin ence/Withdrawal Complaint 05/23/2020 12:00:00 PM EDT [facility] ([facility]) [id number] Methamphetamine abuse Methamphetamine abuse Complaint 05/20/2020 12:00:00 PM EDT [facility] ([facility]) [id number] Anxiety Anxiety Complaint 05/20/2020 12:00:00 PM ED T [facility] ([facility]) [id number] Nicotine dependence with current use Glenn otine dependence with current use Complaint 05/20/2020 12:00:00 PM EDT [facility] ([facility]) [id number] Heroin dependence Heroin dependence Complaint 05/20 12:00:00 PM EDT [facility] ([facility]) F11.20 Opioid dependence, uncomplicated Opioid Use Disorder, Severe Condition 02/07/2020 12:00:00 AM EST [facility] Surgeries/Procedures Procedure Description Date Indications Data Source(s) OFFICE OUTPATIENT VISIT 25 MINUTES 12/05/2020 12:00:00 AM EDT [facility] ([facility] ) CVR Draw Bench Operator Helper.Svc. STI / H 12/04/2020 12:00:00 AM EDT - 12/04/2020 12:00:00 AM EDT [facility] ([facility]) CVR Draw Bench Operator Helper.Svc. Other 12/04/2020 12:00:00 AM EDT - 2020 12:00:00 AM EDT [facility] ([facility]) CVR Draw Bench Operator Helper.Svc. Contraceptive 12/04/2020 12 :00:00 AM EDT - 12/04/2020 12:00:00 AM EDT [facility] ([facility]) CVR Med.Svc. Height/Weight 12/04/2020 12 :00:00 AM EDT - 12/04/2020 12:00:00 AM EDT [facility] ([facility]) CVR Blood Pressure 12/04/2020 12:00:00 AM EDT - 2020 12:00:00 AM EDT [facility] ([facility]) HCS Without Test 12/04/2020 12:00:00 AM EDT - 12/05/19 21 12:00:00 AM EDT [facility] ([facility]) TRICHOMONAS VAGIN, DIR PROBE 12/04/2020 12:00:00 AM EDT - 12/04/2020 12:00:00 AM EDT [facility] [place]) OROURKE VAG, DNA, DIR PROBE 12/04/2020 1 2:00:00 AM EDT - 12/04/2020 12:00:00 AM EDT [facility] ([facility]) JUANITA, DNA, DIR PROBE 12/04/2020 12:00 :00 AM EDT - 12/04/2020 12:00:00 AM EDT [facility] ([facility]) CYTOPATH, C/V, INTERPRET 12/04/2020 12:0 0:00 AM EDT - 12/04/2020 12:00:00 AM EDT [facility] ([facility]) HPV, DNA, AMP PROBE HIGH RISK 12/04/2020 12:00:00 AM EDT - 12/04/2020 12:00:00 AM EDT [facility] ([facility]) CYTOPATH, C/V, THIN LAYER 12/04/2020 12: 00:00 AM EDT - 12/04/2020 12:00:00 AM EDT [facility] ([facility]) PREV VISIT, EST, AGE 18-39 12/04/2020 12 :00:00 AM EDT - 12/04/2020 12:00:00 AM EDT [facility] ([facility]) OFFICE OUTPATIENT VISIT 10 MINUTES 11/06/2020 12:00:00 AM EDT [facility] (Choco Flores MD) OFFICE OUTPATIENT VISIT 15 MINUTES 10/15/2020 12:00:00 AM EDT [facility] (Choco Flores MD) CVR Draw Bench Operator Helper.Svc. STI / H 10/02/2020 12:00:00 AM EDT - 10/02/2020 12:00:00 AM EDT [facility] ([facility]) CVR Med.Svc. Vaginitis Rx 10/02/2020 12: 00:00 AM EDT - 10/02/2020 12:00:00 AM EDT [facility] ([facility]) CVR Med.Svc. Height/Weight 10/02/2020 12 :00:00 AM EDT - 10/02/2020 12:00:00 AM EDT [facility] ([facility]) CVR Blood Pressure 10/02/2020 12:00:00 AM EDT - 2020 12:00:00 AM EDT [facility] ([facility]) OFFICE/OUTPATIENT VISIT, NEW 10/02/2020 12:00:00 AM EDT - 10/02/2020 12:00:00 AM EDT [facility] ([facility]) SMEAR, WET MOUNT, SALINE/INK 10/02/2020 12:00:00 AM EDT - 10/02/2020 12:00:00 AM EDT [facility] ([facility]) ASSAY OF BODY FLUID ACIDITY 10/02/2020 1 2:00:00 AM EDT - 10/02/2020 12:00:00 AM EDT [facility] ([facility]) URINE TEST 10/02/2020 12:00:00 AM EDT - 10/02/2020 12:00:00 AM EDT [facility] ([facility]) OFFICE OUTPATIENT VISIT 15 MINUTES 09/25/2020 12:00:00 AM EDT [facility] ([facility] ) OFFICE OUTPATIENT VISIT 15 MINUTES 08/29/2020 12:00:00 AM EDT [facility] (Choco Flores MD) OFFICE OUTPATIENT NEW 45 MINUTES 08/20/2020 12:00:00 A M EDT [facility] ([facility] ) OFFICE OUTPATIENT VISIT 15 MINUTES 08/06/2020 12:00:00 AM EDT [facility] (Choco Flores MD) OFFICE OUTPATIENT NEW 30 MINUTES 07/12/2020 12:00:00 A M EDT [facility] (Choco Flores MD) Shelter - Case Management 02/07/2020 12:00: 00 AM EST - 02/07/2020 12:00:00 AM EST [facility] ([facility]) Shelter - Case Management 02/07/2020 12:00:00 AM EST [facility] ([facility]) Brief Individual Psychotherapy - 20 min 01/30/2020 12:00:00 AM EST - 01/30/2020 12:00:00 AM EST [facility] ([facility]) Brief Individual Psychotherapy - 20 min 01/30/2020 12: 00:00 AM EST [facility] ([facility]) Results ID Date Data Source [id number] 12/04/2020 12:00:00 AM EDT [facility] ([facility]) Name Value Range Interpretation Code Description Data Zoie rce(s) Supporting Document(s) Not Detected Not Detected Juanita species NextG en ([facility]) A positive (detected) result for Juanita , Gardnerella and/or Trichomonas means nucleic acid for [...] trichomoniasis,respectively, when consistent with clinical signs andsymptoms.P regnant: NoThis information has been disclosed to you from confidential records which are protected by law. Privacy laws prohibityou from making any further disclosure of this information without the specific written consent of the person to whom itpertains, or otherwise permitted by law. Any unauthorized further disclosure in violation of the law may result in a fineor senior care sentence or both. A general authorization for the release of medical or other information is not, except inlimited circumstances set forth in this part, sufficient authorization for further disclosure.This document contains private and confidential health information protected by state and federal law. If youhave received this document in error, please call the Marine Operations Coordinator for [employer] at ext [phone] ore-mail [email or web address] Performed by: MORENA ([id number]) Not Detected Not Detected Trichomonas vaginalis NextGen ([facility]) DETECTED Not Detected Abnormal (applies to non-num javi results) Gardnerella vaginalis Next[facility] ([facility]) ID Date Data Source [id number] 10/02/2020 08:53:41 AM EDT [facility] ([facility]) Name Value Range Interpretation Code Description Data Zoie rce(s) Supporting Document(s) Hyphae/Juanita: no; Budding yeast: no; Trich: no; Clue cells: yes (>=20%); WBCs: no; Amine/Whiff test: positive; pH: 5.5 Abnormal (applies to non-numeric results) Wet Prep [facility] ([facility]) Hyphae/Juanita: no; Budding yeast: no; Trich: no; Clue cells: yes (>=20%); WBCs: no; Amine/Whiff test: positive; pH: 5.5 Abnormal (applies to non-numeric results) Wet Prep [facility] ([facility]) ID Date Data Source [id number] 10/02/2020 08:53:26 AM EDT [facility] ([facility]) Name Value Range Interpretation Code Description Data Zoie rce(s) Supporting Document(s) pH: 5.5. Vaginal pH [facility] ([facility]) pH: 5.5. Vaginal pH [facility] ([facility]) ID Date Data Source [id number] 10/02/2020 08:42:12 AM EDT [facility] ([facility]) Name Value Range Interpretation Code Description Data Zoie rce(s) Supporting Document(s) NegativeLot: [id number]: 02/21/2022 High Sensitivity Urine Test NextGen ([facility]) NegativeLot: [id number]: 02/21/2022 High Sensitivity Urine Test NextGen ([facility]) ID Date Data Source [id number] 07/15/2020 02:01:00 PM EDT [facility] (Choco Flores MD) Name Value Range Interpretation Code Description Data Zoie rce(s) Supporting Document(s) Laboratory test finding (navigational concept) Laboratory test r esult Normal (applies to non-numeric results) [facility] (Choco Flores MD) Laboratory test finding (navigational concept) Laboratory test r esult Normal (applies to non-numeric results) [facility] (Choco Flores MD) Laboratory test finding (navigational concept) 7.0 units 5 .0-9.0 Normal (applies to non-numeric results) [facility] (Choco Flores MD) Laboratory test finding (navigational concept) 1.003 1 .002-1.035 Normal (applies to non-numeric results) [facility] (Choco Flores MD) Laboratory test finding (navigational concept) Laboratory test r esult Normal (applies to non-numeric results) [facility] (Choco Flores MD) Laboratory test finding (navigational concept) Laboratory test r esult Normal (applies to non-numeric results) [facility] (Choco Flores MD) Laboratory test finding (navigational concept) Laboratory test r esult Normal (applies to non-numeric results) [facility] (Choco Flores MD) Laboratory test finding (navigational concept) Laboratory test r esult Normal (applies to non-numeric results) [facility] (Choco Flores MD) Laboratory test finding (navigational concept) Laboratory test r esult Normal (applies to non-numeric results) [facility] (Choco Flores MD) Laboratory test finding (navigational concept) 0.2 mg/dL 0 .0-2.0 Normal (applies to non-numeric results) [facility] (Choco Flores MD) Laboratory test finding (navigational concept) Laboratory test r esult Normal (applies to non-numeric results) [facility] (Choco Flores MD) Laboratory test finding (navigational concept) Laboratory test r esult Normal (applies to non-numeric results) [facility] (Choco Flores MD) Laboratory test finding (navigational concept) 0 /HPF 0 -3 Normal (applies to non-numeric results) [facility] (Choco Flores MD) Laboratory test finding (navigational concept) 2 /HPF 0 -3 Normal (applies to non-numeric results) [facility] (Choco Flores MD) Laboratory test finding (navigational concept) 0 /LPF 0 -1 Normal (applies to non-numeric results) [facility] (Choco Flores MD) Laboratory test finding (navigational concept) 1 /HPF 0 -6 Normal (applies to non-numeric results) [facility] (Choco Flores MD) Laboratory test finding (navigational concept) Laboratory test r esult Normal (applies to non-numeric results) [facility] (Choco Flores MD) ID Date Data Source [id number] 07/15/2020 01:57:00 PM EDT [facility] (Choco Flores MD) Name Value Range Interpretation Code Description Data Zoie rce(s) Supporting Document(s) Hepatitis C virus RNA [Units/volume] (vi ral load) in Serum or Plasma by Probe with amplification Laboratory test result Normal (applies t o non-numeric results) [facility] (Choco Flores MD) Negative: HCV RNA Not Detected Performed at: [address] [id number] Radio Aerial Installer: René Orlando MD, Phone: [phone] ID Date Data Source [id number] 07/15/2020 01:57:00 PM EDT [facility] (Choco Flores MD) Name Value Range Interpretation Code Description Data Zoie rce(s) Supporting Document(s) Laboratory test finding (navigational concept) Laboratory test r esult Above high normal [facility] (Choco Flores MD) <content>This screening test for Hepatit is C Virus was above the 1.0</content>
<content>cutoff index value and will be sent to reference lab</content>
<content>[facility] [place], [place]</content>
<content>[place] [address] for Hep C RNA LEXI testing to confirm or exclude</content>
<content>active Hepatitis C Virus infection. Screening test Positive</content>
<content>samples with high index values (>11.0) usually (95%) confirm</content>
<content>Positive, but <5 of every 100 samples with this result might</content>
<content>be a false positive and Hep C RNA LEXI testing will aid in</content>
<content>patient management.</content>
<content></content> Laboratory test finding (navigational concept) Laboratory test r esult Normal (applies to non-numeric results) [facility] (Choco Flores MD) Laboratory test finding (navigational concept) Laboratory test r esult Normal (applies to non-numeric results) [facility] (Choco Flores MD) Laboratory test finding (navigational concept) Laboratory test r esult Normal (applies to non-numeric results) [facility] (Choco Flores MD) ID Date Data Source [id number] 07/15/2020 01:57:00 PM EDT [facility] (Choco Flores MD) Name Value Range Interpretation Code Description Data Zoie rce(s) Supporting Document(s) Laboratory test finding (navigational concept) 93 mg/dL 7 0-100 Normal (applies to non-numeric results) [facility] (Choco Flores MD) Laboratory test finding (navigational concept) 11 mg/dL 7 -18 Normal (applies to non-numeric results) [facility] (Choco Flores MD) Laboratory test finding (navigational concept) 0.74 mg/dL 0 .55-1.30 Normal (applies to non-numeric results) [facility] (Choco Flores MD) Laboratory test finding (navigational concept) Laboratory test r esult Normal (applies to non-numeric results) [facility] (Choco Flores MD) <content>Units are mL/min/1.73 m2</content>
<content></content>
<content>Chronic Kidney Disease Staging per NKF:</content>
<content></content>
<content>Stage I & II GFR >=60 Normal to Mildly Decreased</content>
<content>Stage III GFR 30- 59 Moderately Decreased</content>
<content>Stage IV GFR 15-29 Severely Decreased</content>
<content>Stage V GFR <15 Very Little GFR Left</content>
<content>ESRD GFR <15 on EXPERIENCE PLANNING STRATEGIST</content>
<content></content> Laboratory test finding (navigational concept) 138 meq/L 1 36-145 Normal (applies to non-numeric results) [facility] (Choco Flores MD) Laboratory test finding (navigational concept) 4.1 meq/L 3 .5-5.1 Normal (applies to non-numeric results) [facility] (Choco Flores MD) Laboratory test finding (navigational concept) 103 meq/L 9 8-107 Normal (applies to non-numeric results) [facility] (Choco Flores MD) Laboratory test finding (navigational concept) 28 meq/L 2 1-32 Normal (applies to non-numeric results) [facility] (Choco Flores MD) Laboratory test finding (navigational concept) 7 meq/L 8-16 Below low normal [facility] (Choco Flores MD) Laboratory test finding (navigational concept) 9.2 mg/dL 8 .5-10.1 Normal (applies to non-numeric results) [facility] (Choco Flores MD) Laboratory test finding (navigational concept) 25 U/L 7 -37 Normal (applies to non-numeric results) [facility] (Choco Flores MD) Laboratory test finding (navigational concept) 42 U/L 1 2-78 Normal (applies to non-numeric results) [facility] (Choco Flores MD) Laboratory test finding (navigational concept) 81 U/L 4 5-117 Normal (applies to non-numeric results) [facility] (Choco Flores MD) Laboratory test finding (navigational concept) 0.5 mg/dL 0 .2-1.0 Normal (applies to non-numeric results) [facility] (Choco Flores MD) Laboratory test finding (navigational concept) 8.5 GM/DL 6 .4-8.2 Above high normal [facility] (Choco Flores MD) Laboratory test finding (navigational concept) 4.1 GM/DL 3 .2-5.2 Normal (applies to non-numeric results) [facility] (Choco Flores MD) Laboratory test finding (navigational concept) 0.9 1.2-2.2 Below low normal [facility] (Choco Flores MD) ID Date Data Source [id number] 07/15/2020 01:57:00 PM EDT [facility] (Choco Flores MD) Name Value Range Interpretation Code Description Data Zoie rce(s) Supporting Document(s) Laboratory test finding (navigational concept) 5.3 10 4 .0-10.0 Normal (applies to non-numeric results) [facility] (Choco Flores MD) Laboratory test finding (navigational concept) 4.47 10 4 .00-5.40 Normal (applies to non-numeric results) [facility] (Choco Flores MD) Laboratory test finding (navigational concept) 12.8 g/dL 1 2.0-15.5 Normal (applies to non-numeric results) [facility] (Choco Flores MD) Laboratory test finding (navigational concept) 85.0 fl 8 0.0-96.0 Normal (applies to non-numeric results) [facility] (Choco Flores MD) Laboratory test finding (navigational concept) 38.0 % 3 6.0-47.0 Normal (applies to non-numeric results) [facility] (Choco Flores MD) Laboratory test finding (navigational concept) 28.6 pg 2 7.0-33.0 Normal (applies to non-numeric results) [facility] (Choco Flores MD) Laboratory test finding (navigational concept) 33.7 g/dL 3 2.0-36.5 Normal (applies to non-numeric results) [facility] (Choco Flores MD) Laboratory test finding (navigational concept) 156 10 1 50-450 Normal (applies to non-numeric results) [facility] (Choco Flores MD) Laboratory test finding (navigational concept) 12.8 % 1 1.5-14.5 Normal (applies to non-numeric results) [facility] (Choco Flores MD) Laboratory test finding (navigational concept) 55.9 % 3 6.0-66.0 Normal (applies to non-numeric results) [facility] (Choco Flores MD) Laboratory test finding (navigational concept) 32.5 % 2 4.0-44.0 Normal (applies to non-numeric results) [facility] (Choco Flores MD) Laboratory test finding (navigational concept) 8.7 % 2.0-8.0 Above high normal [facility] (Choco Flores MD) Laboratory test finding (navigational concept) 2.1 % 0 .0-3.0 Normal (applies to non-numeric results) [facility] (Choco Flores MD) Laboratory test finding (navigational concept) 0.4 % 0 .0-1.0 Normal (applies to non-numeric results) [facility] (Choco Flores MD) Laboratory test finding (navigational concept) 0.4 % 0 -3.0 Normal (applies to non-numeric results) [facility] (Choco Flores MD) Laboratory test finding (navigational concept) 0.0 % 0 -0 Normal (applies to non- numeric results) [facility] (Choco Flores MD) Laboratory test finding (navigational concept) 3.0 10 1 .5-8.5 Normal (applies to non-numeric results) [facility] (Choco Flores MD) Laboratory test finding (navigational concept) 1.7 10 1 .5-5.0 Normal (applies to non-numeric results) [facility] (Choco Flores MD) Laboratory test finding (navigational concept) 0.5 10 0 .0-0.8 Normal (applies to non-numeric results) [facility] (Choco Flores MD) Laboratory test finding (navigational concept) 0.1 10 0 .0-0.5 Normal (applies to non-numeric results) [facility] (Choco Flores MD) Laboratory test finding (navigational concept) 0.0 10 0 .0-0.2 Normal (applies to non-numeric results) [facility] (Choco Flores MD) ID Date Data Source [id number] 06/19/2020 04:00:00 AM EDT [facility] ([facility]) Name Value Range Interpretation Code Description Data Zoie rce(s) Supporting Document(s) Creatinine [Interpretation] in Urine 86.6NORMALNORMAL [employer] ([employer]) pH of Lower respiratory specimen 6.9NORMALNORMAL [facility] ([facility]) Oxidants [Presence] in Urine 1.00NegativeNegative [facility] ([facility]) Validity Result VALIDVALIDVALID [facility] ([facility]) Methadone [Mass/volume] in Blood -32.00NegativeNegative [facility] ([facility]) Heroin (6-AM) 3.00NegativeNegative [facility] ([facility]) Synthetic Opiates 4.00NegativeNegative [facility] ([facility]) Opiates [Presence] in Unknown substance by Confirmator y method 32.00NegativeNegative [facility] ( [facility]) Cocaine Metabolites 85.00NegativeNegative [facility] ([facility]) Ethyl Alcohol 1.00NegativeNegative [facility] ([facility]) Ethyl glucuronide [Mass/volume] in Urine by Confirmato ry method -31.00NegativeNegative [facility] ([facility]) Cannabinoids [Presence] in Unknown substance by Confir matory method -6.80NegativeNegative [facility] ( [facility]) Ecstasy (MDMA) 11.00NegativeNegative [facility] ([facility]) Phencyclidine [Presence] in Unknown substance by Confi rmatory method -3.80NegativeNegative [facility] ( [facility]) Tramadol [Presence] in Blood by Screen method 3.00NegativeNeg ative [facility] ([facility]) Amphetamines [Presence] in Stool 31.00NegativeNegative [facility] ([facility]) Naloxone [Mass/volume] in Urine by Confirmatory method 2500Positive - InconsistentPOSITIVE> [facility]SMART ([facility]) Buprenorphine [Presence] in Blood by Screen method 250 Positive - InconsistentPOSITIVE> [facility] ([facility]) Norbuprenorphine [Mass/mass] in Meconium by Confirmato ry method 7.610NegativeNegative [facility] ( [facility]) Fentanyl [Z-score] in Urine 50Positive - InconsistentPOSITIVE *> [facility] ([facility]) Norfentanyl [Mass/volume] in Serum, Plasma or Blood by Confirmatory method 1.700Positive - InconsistentPOSITIVE [facility] ([facility]) Carfentanil 0.000NegativeNegative [facility] ([facility]) Norcarfentanil 0.200NegativeNegative [facility] ([facility]) Sufentanil [Mass/volume] in Urine 0.070NegativeNegative [facility] ([facility]) MDA 0.000NegativeNegative [facility] ([facility]) MDMA 0.000NegativeNegative [facility] ([facility]) MDEA 0.380NegativeNegative [facility] ([facility]) Lorazepam [Moles/volume] in Unspecified specimen 5.820Neg ativeNegative [facility] ([facility]) Temazepam [Moles/volume] in Unspecified specimen 0.000Neg ativeNegative [facility] ([facility]) Oxazepam [Moles/volume] in Unspecified specimen 8.660Nega tiveNegative [facility] ([facility]) alpha-Hydroxyalprazolam 0.000NegativeNegative [facility] ([facility]) 7-Aminoclonazepam [Mass/mass] in Hair 0.000NegativeNegative [facility] ([facility]) Pregabalin [Presence] in Urine by Screen method 3.280Nega tiveNegative [facility] ([facility]) Nordiazepam [Moles/volume] in Unspecified specimen 3.690NegativeNegative [facility] ( [facility]) 5-Fluoro AMB 0.000NegativeNegative [facility] ([facility]) 4-gfaeuz-VVN metabolite 7 0.000NegativeNegative [facility] ([facility]) Gabapentin [Mass/volume] in Urine by Confirmatory meth od 67.240NegativeNegative [facility] ([facility]) 7-nmfdfk-VZXK-PICA metabolite 7 0.000NegativeNegative [facility] ([facility]) 9Y-VHYA-ENBAQY 0.000NegativeNegative [facility] ([facility]) 5-Jnwgwn-KP-22 3-Carboxyindole metabolite 0.000NegativeNegative [facility] ([facility]) AB-CHMINACA 0.000NegativeNegative [facility] ([facility]) AB-CHMINACA metabolite M2 0.000NegativeNegative [facility] ([facility]) AB-FUBINACA 0.000NegativeNegative [facility] ([facility]) AB-PINACA 0.000NegativeNegative [facility] ([facility]) AB-FUBINACA metabolite 3 0.000NegativeNegative [facility] ([facility]) ADB-FUBINACA 0.000NegativeNegative [facility] ([facility]) AB-PINACA 5-Pentanoic acid metabolite 0.000NegativeNegative [facility] ([facility]) BB-22 3-carboxyindole metabolite 0.000NegativeNegative [facility] ([facility]) AKB48 0.000NegativeNegative [facility] ([facility]) [id number] 0.000NegativeNegative [facility] ([facility]) JWH-018 5-Pentanoic acid metabolite 0.000NegativeNegative [facility] ([facility]) JWH-018 (synthetic cannabinoid) [Presence] in Blood 0.000NegativeNegative [facility] ( [facility]) MAB-CHMINACA metabolite M2 0.030NegativeNegative [facility] ([facility]) JWH-073 (synthetic cannabinoid) [Presence] in Blood 0.000NegativeNegative [facility] ( [facility]) MAB-CHMINACA 0.000NegativeNegative [facility] ([facility]) MDMB-FUBICA metabolite 3 0.000NegativeNegative [facility] ([facility]) MDMB-FUBINACA 0.000NegativeNegative [facility] ([facility]) MMB-CHMICA 0.000NegativeNegative [facility] ([facility]) MMB-FUBINACA 0.000NegativeNegative [facility] ([facility]) MDMB-FUBINACA metabolite M1 0.010NegativeNegative [facility] ([facility]) UR-144 5-Pentanoic acid metabolite 0.000NegativeNegative [facility] ([facility]) PB-22 3-carboxyindole metabolite 0.250NegativeNegative [facility] ([facility]) UR-144 (synthetic cannabinoid) [Presence] in Blood 0.000NegativeNegative [facility] ( [facility]) XLR-11 0.000NegativeNegative [facility] ([facility]) ID Date Data Source [id number] 06/25/2020 01:41:21 PM EDT [employer] NOTE: Presumptive Positive indicates a n onnegative test result by immunoassay screen. It is a preliminary result. [employer] recommends that a Presumptive Positive result be confirmed by an additional, more specific test such as mass spectrometry NOTE: Presumptive Positive indicates a n onnegative test result by immunoassay screen. It is a preliminary result. [employer] recommends that a Presumptive Positive result be confirmed by an additional, more specific test such as mass spectrometry NOTE: Presumptive Positive indicates a n onnegative test result by immunoassay screen. It is a preliminary result. [employer] recommends that a Presumptive Positive result be confirmed by an additional, more specific test such as mass spectrometry NOTE: Presumptive Positive indicates a n onnegative test result by immunoassay screen. It is a preliminary result. [employer] recommends that a Presumptive Positive result be confirmed by an additional, more specific test such as mass spectrometry NOTE: Presumptive Positive indicates a n onnegative test result by immunoassay screen. It is a preliminary result. [employer] recommends that a Presumptive Positive result be confirmed by an additional, more specific test such as mass spectrometry NOTE: Presumptive Positive indicates a n onnegative test result by immunoassay screen. It is a preliminary result. [employer] recommends that a Presumptive Positive result be confirmed by an additional, more specific test such as mass spectrometry NOTE: Presumptive Positive indicates a n onnegative test result by immunoassay screen. It is a preliminary result. [employer] recommends that a Presumptive Positive result be confirmed by an additional, more specific test such as mass spectrometry NOTE: Presumptive Positive indicates a n onnegative test result by immunoassay screen. It is a preliminary result. [employer] recommends that a Presumptive Positive result be confirmed by an additional, more specific test such as mass spectrometry NOTE: Presumptive Positive indicates a n onnegative test result by immunoassay screen. It is a preliminary result. [employer] recommends that a Presumptive Positive result be confirmed by an additional, more specific test such as mass spectrometry NOTE: Presumptive Positive indicates a n onnegative test result by immunoassay screen. It is a preliminary result. [employer] recommends that a Presumptive Positive result be confirmed by an additional, more specific test such as mass spectrometry NOTE: Presumptive Positive indicates a n onnegative test result by immunoassay screen. It is a preliminary result. [facility] recommends that a Presumptive Positive result be confirmed by an additional, more specific test such as mass spectrometry NOTE: Presumptive Positive indicates a n onnegative test result by immunoassay screen. It is a preliminary result. [facility] recommends that a Presumptive Positive result be confirmed by an additional, more specific test such as mass spectrometry Name Value Range Interpretation Code Description Data Zoie rce(s) Supporting Document(s) Creatinine 86.6NORMALNORMAL mg/dL 20.0-300.0 mg/dL [facility] pH 6.9NORMALNORMAL 3.5-9.2 [facility] Oxidants 1.00NegativeNegative mcg/mL 200.00 mcg/mL [facility] Validity Result VALIDVALIDVALID [facility] ID Date Data Source [id number] 06/25/2020 01:41:22 PM EDT [facility] NOTE: Presumptive Positive indicates a n onnegative test result by immunoassay screen. It is a preliminary result. [facility] recommends that a Presumptive Positive result be confirmed by an additional, more specific test such as mass spectrometry NOTE: Presumptive Positive indicates a n onnegative test result by immunoassay screen. It is a preliminary result. [facility] recommends that a Presumptive Positive result be confirmed by an additional, more specific test such as mass spectrometry NOTE: Presumptive Positive indicates a n onnegative test result by immunoassay screen. It is a preliminary result. [facility] recommends that a Presumptive Positive result be confirmed by an additional, more specific test such as mass spectrometry NOTE: Presumptive Positive indicates a n onnegative test result by immunoassay screen. It is a preliminary result. [facility] recommends that a Presumptive Positive result be confirmed by an additional, more specific test such as mass spectrometry NOTE: Presumptive Positive indicates a n onnegative test result by immunoassay screen. It is a preliminary result. [facility] recommends that a Presumptive Positive result be confirmed by an additional, more specific test such as mass spectrometry NOTE: Presumptive Positive indicates a n onnegative test result by immunoassay screen. It is a preliminary result. [facility] recommends that a Presumptive Positive result be confirmed by an additional, more specific test such as mass spectrometry NOTE: Presumptive Positive indicates a n onnegative test result by immunoassay screen. It is a preliminary result. [facility] recommends that a Presumptive Positive result be confirmed by an additional, more specific test such as mass spectrometry NOTE: Presumptive Positive indicates a n onnegative test result by immunoassay screen. It is a preliminary result. [facility] recommends that a Presumptive Positive result be confirmed by an additional, more specific test such as mass spectrometry NOTE: Presumptive Positive indicates a n onnegative test result by immunoassay screen. It is a preliminary result. [facility] recommends that a Presumptive Positive result be confirmed by an additional, more specific test such as mass spectrometry NOTE: Presumptive Positive indicates a n onnegative test result by immunoassay screen. It is a preliminary result. [facility] recommends that a Presumptive Positive result be confirmed by an additional, more specific test such as mass spectrometry NOTE: Presumptive Positive indicates a n onnegative test result by immunoassay screen. It is a preliminary result. [facility] recommends that a Presumptive Positive result be confirmed by an additional, more specific test such as mass spectrometry NOTE: Presumptive Positive indicates a n onnegative test result by immunoassay screen. It is a preliminary result. [facility] recommends that a Presumptive Positive result be confirmed by an additional, more specific test such as mass spectrometry Name Value Range Interpretation Code Description Data Zoie rce(s) Supporting Document(s) Heroin (6-AM) 3.00NegativeNegative ng/mL 10.00 ng/mL [facility] ID Date Data Source [id number] 06/25/2020 01:41:22 PM EDT [facility] NOTE: Presumptive Positive indicates a n onnegative test result by immunoassay screen. It is a preliminary result. [facility] recommends that a Presumptive Positive result be confirmed by an additional, more specific test such as mass spectrometry NOTE: Presumptive Positive indicates a n onnegative test result by immunoassay screen. It is a preliminary result. [facility] recommends that a Presumptive Positive result be confirmed by an additional, more specific test such as mass spectrometry NOTE: Presumptive Positive indicates a n onnegative test result by immunoassay screen. It is a preliminary result. [facility] recommends that a Presumptive Positive result be confirmed by an additional, more specific test such as mass spectrometry NOTE: Presumptive Positive indicates a n onnegative test result by immunoassay screen. It is a preliminary result. [facility] recommends that a Presumptive Positive result be confirmed by an additional, more specific test such as mass spectrometry NOTE: Presumptive Positive indicates a n onnegative test result by immunoassay screen. It is a preliminary result. [facility] recommends that a Presumptive Positive result be confirmed by an additional, more specific test such as mass spectrometry NOTE: Presumptive Positive indicates a n onnegative test result by immunoassay screen. It is a preliminary result. [facility] recommends that a Presumptive Positive result be confirmed by an additional, more specific test such as mass spectrometry NOTE: Presumptive Positive indicates a n onnegative test result by immunoassay screen. It is a preliminary result. [facility] recommends that a Presumptive Positive result be confirmed by an additional, more specific test such as mass spectrometry NOTE: Presumptive Positive indicates a n onnegative test result by immunoassay screen. It is a preliminary result. [facility] recommends that a Presumptive Positive result be confirmed by an additional, more specific test such as mass spectrometry NOTE: Presumptive Positive indicates a n onnegative test result by immunoassay screen. It is a preliminary result. [facility] recommends that a Presumptive Positive result be confirmed by an additional, more specific test such as mass spectrometry NOTE: Presumptive Positive indicates a n onnegative test result by immunoassay screen. It is a preliminary result. [facility] recommends that a Presumptive Positive result be confirmed by an additional, more specific test such as mass spectrometry NOTE: Presumptive Positive indicates a n onnegative test result by immunoassay screen. It is a preliminary result. [facility] recommends that a Presumptive Positive result be confirmed by an additional, more specific test such as mass spectrometry NOTE: Presumptive Positive indicates a n onnegative test result by immunoassay screen. It is a preliminary result. [facility] recommends that a Presumptive Positive result be confirmed by an additional, more specific test such as mass spectrometry Name Value Range Interpretation Code Description Data Zoie rce(s) Supporting Document(s) Methadone -32.00NegativeNegative ng/mL 300.00 ng/mL [facility] ID Date Data Source [id number] 06/25/2020 01:41:22 PM EDT [facility] NOTE: Presumptive Positive indicates a n onnegative test result by immunoassay screen. It is a preliminary result. [facility] recommends that a Presumptive Positive result be confirmed by an additional, more specific test such as mass spectrometry NOTE: Presumptive Positive indicates a n onnegative test result by immunoassay screen. It is a preliminary result. [facility] recommends that a Presumptive Positive result be confirmed by an additional, more specific test such as mass spectrometry NOTE: Presumptive Positive indicates a n onnegative test result by immunoassay screen. It is a preliminary result. [facility] recommends that a Presumptive Positive result be confirmed by an additional, more specific test such as mass spectrometry NOTE: Presumptive Positive indicates a n onnegative test result by immunoassay screen. It is a preliminary result. [facility] recommends that a Presumptive Positive result be confirmed by an additional, more specific test such as mass spectrometry NOTE: Presumptive Positive indicates a n onnegative test result by immunoassay screen. It is a preliminary result. [facility] recommends that a Presumptive Positive result be confirmed by an additional, more specific test such as mass spectrometry NOTE: Presumptive Positive indicates a n onnegative test result by immunoassay screen. It is a preliminary result. [facility] recommends that a Presumptive Positive result be confirmed by an additional, more specific test such as mass spectrometry NOTE: Presumptive Positive indicates a n onnegative test result by immunoassay screen. It is a preliminary result. [facility] recommends that a Presumptive Positive result be confirmed by an additional, more specific test such as mass spectrometry NOTE: Presumptive Positive indicates a n onnegative test result by immunoassay screen. It is a preliminary result. [facility] recommends that a Presumptive Positive result be confirmed by an additional, more specific test such as mass spectrometry NOTE: Presumptive Positive indicates a n onnegative test result by immunoassay screen. It is a preliminary result. [facility] recommends that a Presumptive Positive result be confirmed by an additional, more specific test such as mass spectrometry NOTE: Presumptive Positive indicates a n onnegative test result by immunoassay screen. It is a preliminary result. [facility] recommends that a Presumptive Positive result be confirmed by an additional, more specific test such as mass spectrometry NOTE: Presumptive Positive indicates a n onnegative test result by immunoassay screen. It is a preliminary result. [facility] recommends that a Presumptive Positive result be confirmed by an additional, more specific test such as mass spectrometry NOTE: Presumptive Positive indicates a n onnegative test result by immunoassay screen. It is a preliminary result. [facility] recommends that a Presumptive Positive result be confirmed by an additional, more specific test such as mass spectrometry Name Value Range Interpretation Code Description Data Zoie rce(s) Supporting Document(s) Opiates 32.00NegativeNegative ng/mL 300.00 ng/mL [facility] ID Date Data Source [id number] 06/25/2020 01:41:23 PM EDT [facility] NOTE: Presumptive Positive indicates a n onnegative test result by immunoassay screen. It is a preliminary result. [facility] recommends that a Presumptive Positive result be confirmed by an additional, more specific test such as mass spectrometry NOTE: Presumptive Positive indicates a n onnegative test result by immunoassay screen. It is a preliminary result. [facility] recommends that a Presumptive Positive result be confirmed by an additional, more specific test such as mass spectrometry NOTE: Presumptive Positive indicates a n onnegative test result by immunoassay screen. It is a preliminary result. [facility] recommends that a Presumptive Positive result be confirmed by an additional, more specific test such as mass spectrometry NOTE: Presumptive Positive indicates a n onnegative test result by immunoassay screen. It is a preliminary result. [facility] recommends that a Presumptive Positive result be confirmed by an additional, more specific test such as mass spectrometry NOTE: Presumptive Positive indicates a n onnegative test result by immunoassay screen. It is a preliminary result. [facility] recommends that a Presumptive Positive result be confirmed by an additional, more specific test such as mass spectrometry NOTE: Presumptive Positive indicates a n onnegative test result by immunoassay screen. It is a preliminary result. [facility] recommends that a Presumptive Positive result be confirmed by an additional, more specific test such as mass spectrometry NOTE: Presumptive Positive indicates a n onnegative test result by immunoassay screen. It is a preliminary result. [facility] recommends that a Presumptive Positive result be confirmed by an additional, more specific test such as mass spectrometry NOTE: Presumptive Positive indicates a n onnegative test result by immunoassay screen. It is a preliminary result. [facility] recommends that a Presumptive Positive result be confirmed by an additional, more specific test such as mass spectrometry NOTE: Presumptive Positive indicates a n onnegative test result by immunoassay screen. It is a preliminary result. [facility] recommends that a Presumptive Positive result be confirmed by an additional, more specific test such as mass spectrometry NOTE: Presumptive Positive indicates a n onnegative test result by immunoassay screen. It is a preliminary result. [facility] recommends that a Presumptive Positive result be confirmed by an additional, more specific test such as mass spectrometry NOTE: Presumptive Positive indicates a n onnegative test result by immunoassay screen. It is a preliminary result. [facility] recommends that a Presumptive Positive result be confirmed by an additional, more specific test such as mass spectrometry NOTE: Presumptive Positive indicates a n onnegative test result by immunoassay screen. It is a preliminary result. [facility] recommends that a Presumptive Positive result be confirmed by an additional, more specific test such as mass spectrometry Name Value Range Interpretation Code Description Data Zoie rce(s) Supporting Document(s) Synthetic Opiates 4.00NegativeNegative ng/mL 100.00 ng/mL [facility] ID Date Data Source [id number] 06/25/2020 01:41:23 PM EDT [facility] NOTE: Presumptive Positive indicates a n onnegative test result by immunoassay screen. It is a preliminary result. [facility] recommends that a Presumptive Positive result be confirmed by an additional, more specific test such as mass spectrometry NOTE: Presumptive Positive indicates a n onnegative test result by immunoassay screen. It is a preliminary result. [facility] recommends that a Presumptive Positive result be confirmed by an additional, more specific test such as mass spectrometry NOTE: Presumptive Positive indicates a n onnegative test result by immunoassay screen. It is a preliminary result. [facility] recommends that a Presumptive Positive result be confirmed by an additional, more specific test such as mass spectrometry NOTE: Presumptive Positive indicates a n onnegative test result by immunoassay screen. It is a preliminary result. [facility] recommends that a Presumptive Positive result be confirmed by an additional, more specific test such as mass spectrometry NOTE: Presumptive Positive indicates a n onnegative test result by immunoassay screen. It is a preliminary result. [facility] recommends that a Presumptive Positive result be confirmed by an additional, more specific test such as mass spectrometry NOTE: Presumptive Positive indicates a n onnegative test result by immunoassay screen. It is a preliminary result. [facility] recommends that a Presumptive Positive result be confirmed by an additional, more specific test such as mass spectrometry NOTE: Presumptive Positive indicates a n onnegative test result by immunoassay screen. It is a preliminary result. [facility] recommends that a Presumptive Positive result be confirmed by an additional, more specific test such as mass spectrometry NOTE: Presumptive Positive indicates a n onnegative test result by immunoassay screen. It is a preliminary result. [facility] recommends that a Presumptive Positive result be confirmed by an additional, more specific test such as mass spectrometry NOTE: Presumptive Positive indicates a n onnegative test result by immunoassay screen. It is a preliminary result. [facility] recommends that a Presumptive Positive result be confirmed by an additional, more specific test such as mass spectrometry NOTE: Presumptive Positive indicates a n onnegative test result by immunoassay screen. It is a preliminary result. [facility] recommends that a Presumptive Positive result be confirmed by an additional, more specific test such as mass spectrometry NOTE: Presumptive Positive indicates a n onnegative test result by immunoassay screen. It is a preliminary result. [facility] recommends that a Presumptive Positive result be confirmed by an additional, more specific test such as mass spectrometry NOTE: Presumptive Positive indicates a n onnegative test result by immunoassay screen. It is a preliminary result. [facility] recommends that a Presumptive Positive result be confirmed by an additional, more specific test such as mass spectrometry Name Value Range Interpretation Code Description Data Zoei rce(s) Supporting Document(s) Cocaine Metabolites 85.00NegativeNegative ng/mL 300.00 ng/mL [facility] ID Date Data Source [id number] 06/25/2020 01:41:23 PM EDT [facility] NOTE: Presumptive Positive indicates a n onnegative test result by immunoassay screen. It is a preliminary result. [facility] recommends that a Presumptive Positive result be confirmed by an additional, more specific test such as mass spectrometry NOTE: Presumptive Positive indicates a n onnegative test result by immunoassay screen. It is a preliminary result. [facility] recommends that a Presumptive Positive result be confirmed by an additional, more specific test such as mass spectrometry NOTE: Presumptive Positive indicates a n onnegative test result by immunoassay screen. It is a preliminary result. [facility] recommends that a Presumptive Positive result be confirmed by an additional, more specific test such as mass spectrometry NOTE: Presumptive Positive indicates a n onnegative test result by immunoassay screen. It is a preliminary result. [facility] recommends that a Presumptive Positive result be confirmed by an additional, more specific test such as mass spectrometry NOTE: Presumptive Positive indicates a n onnegative test result by immunoassay screen. It is a preliminary result. [facility] recommends that a Presumptive Positive result be confirmed by an additional, more specific test such as mass spectrometry NOTE: Presumptive Positive indicates a n onnegative test result by immunoassay screen. It is a preliminary result. [facility] recommends that a Presumptive Positive result be confirmed by an additional, more specific test such as mass spectrometry NOTE: Presumptive Positive indicates a n onnegative test result by immunoassay screen. It is a preliminary result. [facility] recommends that a Presumptive Positive result be confirmed by an additional, more specific test such as mass spectrometry NOTE: Presumptive Positive indicates a n onnegative test result by immunoassay screen. It is a preliminary result. [facility] recommends that a Presumptive Positive result be confirmed by an additional, more specific test such as mass spectrometry NOTE: Presumptive Positive indicates a n onnegative test result by immunoassay screen. It is a preliminary result. [facility] recommends that a Presumptive Positive result be confirmed by an additional, more specific test such as mass spectrometry NOTE: Presumptive Positive indicates a n onnegative test result by immunoassay screen. It is a preliminary result. [facility] recommends that a Presumptive Positive result be confirmed by an additional, more specific test such as mass spectrometry NOTE: Presumptive Positive indicates a n onnegative test result by immunoassay screen. It is a preliminary result. [facility] recommends that a Presumptive Positive result be confirmed by an additional, more specific test such as mass spectrometry NOTE: Presumptive Positive indicates a n onnegative test result by immunoassay screen. It is a preliminary result. [facility] recommends that a Presumptive Positive result be confirmed by an additional, more specific test such as mass spectrometry Name Value Range Interpretation Code Description Data Zoie rce(s) Supporting Document(s) Ethyl Glucuronide -31.00NegativeNegative ng/mL 500.00 ng/mL [facility] ID Date Data Source [id number] 06/25/2020 01:41:23 PM EDT [facility] NOTE: Presumptive Positive indicates a n onnegative test result by immunoassay screen. It is a preliminary result. [facility] recommends that a Presumptive Positive result be confirmed by an additional, more specific test such as mass spectrometry NOTE: Presumptive Positive indicates a n onnegative test result by immunoassay screen. It is a preliminary result. [facility] recommends that a Presumptive Positive result be confirmed by an additional, more specific test such as mass spectrometry NOTE: Presumptive Positive indicates a n onnegative test result by immunoassay screen. It is a preliminary result. [facility] recommends that a Presumptive Positive result be confirmed by an additional, more specific test such as mass spectrometry NOTE: Presumptive Positive indicates a n onnegative test result by immunoassay screen. It is a preliminary result. [facility] recommends that a Presumptive Positive result be confirmed by an additional, more specific test such as mass spectrometry NOTE: Presumptive Positive indicates a n onnegative test result by immunoassay screen. It is a preliminary result. [facility] recommends that a Presumptive Positive result be confirmed by an additional, more specific test such as mass spectrometry NOTE: Presumptive Positive indicates a n onnegative test result by immunoassay screen. It is a preliminary result. [facility] recommends that a Presumptive Positive result be confirmed by an additional, more specific test such as mass spectrometry NOTE: Presumptive Positive indicates a n onnegative test result by immunoassay screen. It is a preliminary result. [facility] recommends that a Presumptive Positive result be confirmed by an additional, more specific test such as mass spectrometry NOTE: Presumptive Positive indicates a n onnegative test result by immunoassay screen. It is a preliminary result. [facility] recommends that a Presumptive Positive result be confirmed by an additional, more specific test such as mass spectrometry NOTE: Presumptive Positive indicates a n onnegative test result by immunoassay screen. It is a preliminary result. [facility] recommends that a Presumptive Positive result be confirmed by an additional, more specific test such as mass spectrometry NOTE: Presumptive Positive indicates a n onnegative test result by immunoassay screen. It is a preliminary result. [facility] recommends that a Presumptive Positive result be confirmed by an additional, more specific test such as mass spectrometry NOTE: Presumptive Positive indicates a n onnegative test result by immunoassay screen. It is a preliminary result. [facility] recommends that a Presumptive Positive result be confirmed by an additional, more specific test such as mass spectrometry NOTE: Presumptive Positive indicates a n onnegative test result by immunoassay screen. It is a preliminary result. [facility] recommends that a Presumptive Positive result be confirmed by an additional, more specific test such as mass spectrometry Name Value Range Interpretation Code Description Data Zoie rce(s) Supporting Document(s) Ethyl Alcohol 1.00NegativeNegative mg/dL 100.00 mg/dL [facility] ID Date Data Source [id number] 06/25/2020 01:41:23 PM EDT [facility] NOTE: Presumptive Positive indicates a n onnegative test result by immunoassay screen. It is a preliminary result. [facility] recommends that a Presumptive Positive result be confirmed by an additional, more specific test such as mass spectrometry NOTE: Presumptive Positive indicates a n onnegative test result by immunoassay screen. It is a preliminary result. [facility] recommends that a Presumptive Positive result be confirmed by an additional, more specific test such as mass spectrometry NOTE: Presumptive Positive indicates a n onnegative test result by immunoassay screen. It is a preliminary result. [facility] recommends that a Presumptive Positive result be confirmed by an additional, more specific test such as mass spectrometry NOTE: Presumptive Positive indicates a n onnegative test result by immunoassay screen. It is a preliminary result. [facility] recommends that a Presumptive Positive result be confirmed by an additional, more specific test such as mass spectrometry NOTE: Presumptive Positive indicates a n onnegative test result by immunoassay screen. It is a preliminary result. [facility] recommends that a Presumptive Positive result be confirmed by an additional, more specific test such as mass spectrometry NOTE: Presumptive Positive indicates a n onnegative test result by immunoassay screen. It is a preliminary result. [facility] recommends that a Presumptive Positive result be confirmed by an additional, more specific test such as mass spectrometry NOTE: Presumptive Positive indicates a n onnegative test result by immunoassay screen. It is a preliminary result. [facility] recommends that a Presumptive Positive result be confirmed by an additional, more specific test such as mass spectrometry NOTE: Presumptive Positive indicates a n onnegative test result by immunoassay screen. It is a preliminary result. [facility] recommends that a Presumptive Positive result be confirmed by an additional, more specific test such as mass spectrometry NOTE: Presumptive Positive indicates a n onnegative test result by immunoassay screen. It is a preliminary result. [facility] recommends that a Presumptive Positive result be confirmed by an additional, more specific test such as mass spectrometry NOTE: Presumptive Positive indicates a n onnegative test result by immunoassay screen. It is a preliminary result. [facility] recommends that a Presumptive Positive result be confirmed by an additional, more specific test such as mass spectrometry NOTE: Presumptive Positive indicates a n onnegative test result by immunoassay screen. It is a preliminary result. [facility] recommends that a Presumptive Positive result be confirmed by an additional, more specific test such as mass spectrometry NOTE: Presumptive Positive indicates a n onnegative test result by immunoassay screen. It is a preliminary result. [facility] recommends that a Presumptive Positive result be confirmed by an additional, more specific test such as mass spectrometry Name Value Range Interpretation Code Description Data Zoie rce(s) Supporting Document(s) Ecstasy (MDMA) 11.00NegativeNegative ng/mL 500.00 ng/mL [facility] ID Date Data Source [id number] 06/25/2020 01:41:24 PM EDT [facility] NOTE: Presumptive Positive indicates a n onnegative test result by immunoassay screen. It is a preliminary result. [facility] recommends that a Presumptive Positive result be confirmed by an additional, more specific test such as mass spectrometry NOTE: Presumptive Positive indicates a n onnegative test result by immunoassay screen. It is a preliminary result. [facility] recommends that a Presumptive Positive result be confirmed by an additional, more specific test such as mass spectrometry NOTE: Presumptive Positive indicates a n onnegative test result by immunoassay screen. It is a preliminary result. [facility] recommends that a Presumptive Positive result be confirmed by an additional, more specific test such as mass spectrometry NOTE: Presumptive Positive indicates a n onnegative test result by immunoassay screen. It is a preliminary result. [facility] recommends that a Presumptive Positive result be confirmed by an additional, more specific test such as mass spectrometry NOTE: Presumptive Positive indicates a n onnegative test result by immunoassay screen. It is a preliminary result. [facility] recommends that a Presumptive Positive result be confirmed by an additional, more specific test such as mass spectrometry NOTE: Presumptive Positive indicates a n onnegative test result by immunoassay screen. It is a preliminary result. [facility] recommends that a Presumptive Positive result be confirmed by an additional, more specific test such as mass spectrometry NOTE: Presumptive Positive indicates a n onnegative test result by immunoassay screen. It is a preliminary result. [facility] recommends that a Presumptive Positive result be confirmed by an additional, more specific test such as mass spectrometry NOTE: Presumptive Positive indicates a n onnegative test result by immunoassay screen. It is a preliminary result. [facility] recommends that a Presumptive Positive result be confirmed by an additional, more specific test such as mass spectrometry NOTE: Presumptive Positive indicates a n onnegative test result by immunoassay screen. It is a preliminary result. [facility] recommends that a Presumptive Positive result be confirmed by an additional, more specific test such as mass spectrometry NOTE: Presumptive Positive indicates a n onnegative test result by immunoassay screen. It is a preliminary result. [facility] recommends that a Presumptive Positive result be confirmed by an additional, more specific test such as mass spectrometry NOTE: Presumptive Positive indicates a n onnegative test result by immunoassay screen. It is a preliminary result. [facility] recommends that a Presumptive Positive result be confirmed by an additional, more specific test such as mass spectrometry NOTE: Presumptive Positive indicates a n onnegative test result by immunoassay screen. It is a preliminary result. [facility] recommends that a Presumptive Positive result be confirmed by an additional, more specific test such as mass spectrometry Name Value Range Interpretation Code Description Data Zoie rce(s) Supporting Document(s) Phencyclidine -3.80NegativeNegative ng/mL 25.00 ng/mL [facility] ID Date Data Source [id number] 06/25/2020 01:41:24 PM EDT [facility] NOTE: Presumptive Positive indicates a n onnegative test result by immunoassay screen. It is a preliminary result. [facility] recommends that a Presumptive Positive result be confirmed by an additional, more specific test such as mass spectrometry NOTE: Presumptive Positive indicates a n onnegative test result by immunoassay screen. It is a preliminary result. [facility] recommends that a Presumptive Positive result be confirmed by an additional, more specific test such as mass spectrometry NOTE: Presumptive Positive indicates a n onnegative test result by immunoassay screen. It is a preliminary result. [facility] recommends that a Presumptive Positive result be confirmed by an additional, more specific test such as mass spectrometry NOTE: Presumptive Positive indicates a n onnegative test result by immunoassay screen. It is a preliminary result. [facility] recommends that a Presumptive Positive result be confirmed by an additional, more specific test such as mass spectrometry NOTE: Presumptive Positive indicates a n onnegative test result by immunoassay screen. It is a preliminary result. [facility] recommends that a Presumptive Positive result be confirmed by an additional, more specific test such as mass spectrometry NOTE: Presumptive Positive indicates a n onnegative test result by immunoassay screen. It is a preliminary result. [facility] recommends that a Presumptive Positive result be confirmed by an additional, more specific test such as mass spectrometry NOTE: Presumptive Positive indicates a n onnegative test result by immunoassay screen. It is a preliminary result. [facility] recommends that a Presumptive Positive result be confirmed by an additional, more specific test such as mass spectrometry NOTE: Presumptive Positive indicates a n onnegative test result by immunoassay screen. It is a preliminary result. [facility] recommends that a Presumptive Positive result be confirmed by an additional, more specific test such as mass spectrometry NOTE: Presumptive Positive indicates a n onnegative test result by immunoassay screen. It is a preliminary result. [facility] recommends that a Presumptive Positive result be confirmed by an additional, more specific test such as mass spectrometry NOTE: Presumptive Positive indicates a n onnegative test result by immunoassay screen. It is a preliminary result. [facility] recommends that a Presumptive Positive result be confirmed by an additional, more specific test such as mass spectrometry NOTE: Presumptive Positive indicates a n onnegative test result by immunoassay screen. It is a preliminary result. [facility] recommends that a Presumptive Positive result be confirmed by an additional, more specific test such as mass spectrometry NOTE: Presumptive Positive indicates a n onnegative test result by immunoassay screen. It is a preliminary result. [facility] recommends that a Presumptive Positive result be confirmed by an additional, more specific test such as mass spectrometry Name Value Range Interpretation Code Description Data Zoie rce(s) Supporting Document(s) Cannabinoids -6.80NegativeNegative ng/mL 20.00 ng/mL [facility] ID Date Data Source [id number] 06/25/2020 01:41:24 PM EDT [facility] NOTE: Presumptive Positive indicates a n onnegative test result by immunoassay screen. It is a preliminary result. [facility] recommends that a Presumptive Positive result be confirmed by an additional, more specific test such as mass spectrometry NOTE: Presumptive Positive indicates a n onnegative test result by immunoassay screen. It is a preliminary result. [facility] recommends that a Presumptive Positive result be confirmed by an additional, more specific test such as mass spectrometry NOTE: Presumptive Positive indicates a n onnegative test result by immunoassay screen. It is a preliminary result. [facility] recommends that a Presumptive Positive result be confirmed by an additional, more specific test such as mass spectrometry NOTE: Presumptive Positive indicates a n onnegative test result by immunoassay screen. It is a preliminary result. [facility] recommends that a Presumptive Positive result be confirmed by an additional, more specific test such as mass spectrometry NOTE: Presumptive Positive indicates a n onnegative test result by immunoassay screen. It is a preliminary result. [facility] recommends that a Presumptive Positive result be confirmed by an additional, more specific test such as mass spectrometry NOTE: Presumptive Positive indicates a n onnegative test result by immunoassay screen. It is a preliminary result. [facility] recommends that a Presumptive Positive result be confirmed by an additional, more specific test such as mass spectrometry NOTE: Presumptive Positive indicates a n onnegative test result by immunoassay screen. It is a preliminary result. [facility] recommends that a Presumptive Positive result be confirmed by an additional, more specific test such as mass spectrometry NOTE: Presumptive Positive indicates a n onnegative test result by immunoassay screen. It is a preliminary result. [facility] recommends that a Presumptive Positive result be confirmed by an additional, more specific test such as mass spectrometry NOTE: Presumptive Positive indicates a n onnegative test result by immunoassay screen. It is a preliminary result. [facility] recommends that a Presumptive Positive result be confirmed by an additional, more specific test such as mass spectrometry NOTE: Presumptive Positive indicates a n onnegative test result by immunoassay screen. It is a preliminary result. [facility] recommends that a Presumptive Positive result be confirmed by an additional, more specific test such as mass spectrometry NOTE: Presumptive Positive indicates a n onnegative test result by immunoassay screen. It is a preliminary result. [facility] recommends that a Presumptive Positive result be confirmed by an additional, more specific test such as mass spectrometry NOTE: Presumptive Positive indicates a n onnegative test result by immunoassay screen. It is a preliminary result. [facility] recommends that a Presumptive Positive result be confirmed by an additional, more specific test such as mass spectrometry Name Value Range Interpretation Code Description Data Zoie rce(s) Supporting Document(s) Tramadol 3.00NegativeNegative ng/mL 200.00 ng/mL [facility] ID Date Data Source [id number] 06/25/2020 01:41:24 PM EDT [facility] NOTE: Presumptive Positive indicates a n onnegative test result by immunoassay screen. It is a preliminary result. [facility] recommends that a Presumptive Positive result be confirmed by an additional, more specific test such as mass spectrometry NOTE: Presumptive Positive indicates a n onnegative test result by immunoassay screen. It is a preliminary result. [facility] recommends that a Presumptive Positive result be confirmed by an additional, more specific test such as mass spectrometry NOTE: Presumptive Positive indicates a n onnegative test result by immunoassay screen. It is a preliminary result. [facility] recommends that a Presumptive Positive result be confirmed by an additional, more specific test such as mass spectrometry NOTE: Presumptive Positive indicates a n onnegative test result by immunoassay screen. It is a preliminary result. [facility] recommends that a Presumptive Positive result be confirmed by an additional, more specific test such as mass spectrometry NOTE: Presumptive Positive indicates a n onnegative test result by immunoassay screen. It is a preliminary result. [facility] recommends that a Presumptive Positive result be confirmed by an additional, more specific test such as mass spectrometry NOTE: Presumptive Positive indicates a n onnegative test result by immunoassay screen. It is a preliminary result. [facility] recommends that a Presumptive Positive result be confirmed by an additional, more specific test such as mass spectrometry NOTE: Presumptive Positive indicates a n onnegative test result by immunoassay screen. It is a preliminary result. [facility] recommends that a Presumptive Positive result be confirmed by an additional, more specific test such as mass spectrometry NOTE: Presumptive Positive indicates a n onnegative test result by immunoassay screen. It is a preliminary result. [facility] recommends that a Presumptive Positive result be confirmed by an additional, more specific test such as mass spectrometry NOTE: Presumptive Positive indicates a n onnegative test result by immunoassay screen. It is a preliminary result. [facility] recommends that a Presumptive Positive result be confirmed by an additional, more specific test such as mass spectrometry NOTE: Presumptive Positive indicates a n onnegative test result by immunoassay screen. It is a preliminary result. [facility] recommends that a Presumptive Positive result be confirmed by an additional, more specific test such as mass spectrometry NOTE: Presumptive Positive indicates a n onnegative test result by immunoassay screen. It is a preliminary result. [facility] recommends that a Presumptive Positive result be confirmed by an additional, more specific test such as mass spectrometry NOTE: Presumptive Positive indicates a n onnegative test result by immunoassay screen. It is a preliminary result. [facility] recommends that a Presumptive Positive result be confirmed by an additional, more specific test such as mass spectrometry Name Value Range Interpretation Code Description Data Zoie rce(s) Supporting Document(s) Amphetamines 31.00NegativeNegative ng/mL 500.00 ng/mL [facility] ID Date Data Source [id number] 06/25/2020 01:41:24 PM EDT [facility] NOTE: Presumptive Positive indicates a n onnegative test result by immunoassay screen. It is a preliminary result. [facility] recommends that a Presumptive Positive result be confirmed by an additional, more specific test such as mass spectrometry NOTE: Presumptive Positive indicates a n onnegative test result by immunoassay screen. It is a preliminary result. [facility] recommends that a Presumptive Positive result be confirmed by an additional, more specific test such as mass spectrometry NOTE: Presumptive Positive indicates a n onnegative test result by immunoassay screen. It is a preliminary result. [facility] recommends that a Presumptive Positive result be confirmed by an additional, more specific test such as mass spectrometry NOTE: Presumptive Positive indicates a n onnegative test result by immunoassay screen. It is a preliminary result. [facility] recommends that a Presumptive Positive result be confirmed by an additional, more specific test such as mass spectrometry NOTE: Presumptive Positive indicates a n onnegative test result by immunoassay screen. It is a preliminary result. [facility] recommends that a Presumptive Positive result be confirmed by an additional, more specific test such as mass spectrometry NOTE: Presumptive Positive indicates a n onnegative test result by immunoassay screen. It is a preliminary result. [facility] recommends that a Presumptive Positive result be confirmed by an additional, more specific test such as mass spectrometry NOTE: Presumptive Positive indicates a n onnegative test result by immunoassay screen. It is a preliminary result. [facility] recommends that a Presumptive Positive result be confirmed by an additional, more specific test such as mass spectrometry NOTE: Presumptive Positive indicates a n onnegative test result by immunoassay screen. It is a preliminary result. [facility] recommends that a Presumptive Positive result be confirmed by an additional, more specific test such as mass spectrometry NOTE: Presumptive Positive indicates a n onnegative test result by immunoassay screen. It is a preliminary result. [facility] recommends that a Presumptive Positive result be confirmed by an additional, more specific test such as mass spectrometry NOTE: Presumptive Positive indicates a n onnegative test result by immunoassay screen. It is a preliminary result. [facility] recommends that a Presumptive Positive result be confirmed by an additional, more specific test such as mass spectrometry NOTE: Presumptive Positive indicates a n onnegative test result by immunoassay screen. It is a preliminary result. [facility] recommends that a Presumptive Positive result be confirmed by an additional, more specific test such as mass spectrometry NOTE: Presumptive Positive indicates a n onnegative test result by immunoassay screen. It is a preliminary result. [facility] recommends that a Presumptive Positive result be confirmed by an additional, more specific test such as mass spectrometry Name Value Range Interpretation Code Description Data Zoie rce(s) Supporting Document(s) Buprenorphine 250Positive - InconsistentPOSITIVE> ng/ mL 5.00 ng/mL Abnormal (applies to non-numeric results) [facility] Norbuprenorphine 7.610NegativeNegative ng/mL 10.00 ng/mL [facility] Naloxone 2500Positive - InconsistentPOSITIVE> ng /mL 25.00 ng/mL Abnormal (applies to non-numeric results) [facility] ID Date Data Source [id number] 06/25/2020 01:41:25 PM EDT [facility] NOTE: Presumptive Positive indicates a n onnegative test result by immunoassay screen. It is a preliminary result. [facility] recommends that a Presumptive Positive result be confirmed by an additional, more specific test such as mass spectrometry NOTE: Presumptive Positive indicates a n onnegative test result by immunoassay screen. It is a preliminary result. [facility] recommends that a Presumptive Positive result be confirmed by an additional, more specific test such as mass spectrometry NOTE: Presumptive Positive indicates a n onnegative test result by immunoassay screen. It is a preliminary result. [facility] recommends that a Presumptive Positive result be confirmed by an additional, more specific test such as mass spectrometry NOTE: Presumptive Positive indicates a n onnegative test result by immunoassay screen. It is a preliminary result. [facility] recommends that a Presumptive Positive result be confirmed by an additional, more specific test such as mass spectrometry NOTE: Presumptive Positive indicates a n onnegative test result by immunoassay screen. It is a preliminary result. [facility] recommends that a Presumptive Positive result be confirmed by an additional, more specific test such as mass spectrometry NOTE: Presumptive Positive indicates a n onnegative test result by immunoassay screen. It is a preliminary result. [facility] recommends that a Presumptive Positive result be confirmed by an additional, more specific test such as mass spectrometry NOTE: Presumptive Positive indicates a n onnegative test result by immunoassay screen. It is a preliminary result. [facility] recommends that a Presumptive Positive result be confirmed by an additional, more specific test such as mass spectrometry NOTE: Presumptive Positive indicates a n onnegative test result by immunoassay screen. It is a preliminary result. [facility] recommends that a Presumptive Positive result be confirmed by an additional, more specific test such as mass spectrometry NOTE: Presumptive Positive indicates a n onnegative test result by immunoassay screen. It is a preliminary result. [facility] recommends that a Presumptive Positive result be confirmed by an additional, more specific test such as mass spectrometry NOTE: Presumptive Positive indicates a n onnegative test result by immunoassay screen. It is a preliminary result. [facility] recommends that a Presumptive Positive result be confirmed by an additional, more specific test such as mass spectrometry NOTE: Presumptive Positive indicates a n onnegative test result by immunoassay screen. It is a preliminary result. [facility] recommends that a Presumptive Positive result be confirmed by an additional, more specific test such as mass spectrometry NOTE: Presumptive Positive indicates a n onnegative test result by immunoassay screen. It is a preliminary result. [facility] recommends that a Presumptive Positive result be confirmed by an additional, more specific test such as mass spectrometry Name Value Range Interpretation Code Description Data Zoie rce(s) Supporting Document(s) Norfentanyl 1.700Positive - InconsistentPOSITIVE ng /mL 1.00 ng/mL Abnormal (applies to non-numeric results) [facility] Fentanyl 50Positive - InconsistentPOSITIVE> ng/m L 1.00 ng/mL Abnormal (applies to non-numeric results) [facility] Carfentanil 0.000NegativeNegative ng/mL 1.00 ng/mL [facility] Norcarfentanil 0.200NegativeNegative ng/mL 1.00 ng/mL [facility] Sufentanil 0.070NegativeNegative ng/mL 1.00 ng/mL [facility] ID Date Data Source [id number] 06/25/2020 01:41:26 PM EDT [facility] NOTE: Presumptive Positive indicates a n onnegative test result by immunoassay screen. It is a preliminary result. [facility] recommends that a Presumptive Positive result be confirmed by an additional, more specific test such as mass spectrometry NOTE: Presumptive Positive indicates a n onnegative test result by immunoassay screen. It is a preliminary result. [facility] recommends that a Presumptive Positive result be confirmed by an additional, more specific test such as mass spectrometry NOTE: Presumptive Positive indicates a n onnegative test result by immunoassay screen. It is a preliminary result. [facility] recommends that a Presumptive Positive result be confirmed by an additional, more specific test such as mass spectrometry NOTE: Presumptive Positive indicates a n onnegative test result by immunoassay screen. It is a preliminary result. [facility] recommends that a Presumptive Positive result be confirmed by an additional, more specific test such as mass spectrometry NOTE: Presumptive Positive indicates a n onnegative test result by immunoassay screen. It is a preliminary result. [facility] recommends that a Presumptive Positive result be confirmed by an additional, more specific test such as mass spectrometry NOTE: Presumptive Positive indicates a n onnegative test result by immunoassay screen. It is a preliminary result. [facility] recommends that a Presumptive Positive result be confirmed by an additional, more specific test such as mass spectrometry NOTE: Presumptive Positive indicates a n onnegative test result by immunoassay screen. It is a preliminary result. [facility] recommends that a Presumptive Positive result be confirmed by an additional, more specific test such as mass spectrometry NOTE: Presumptive Positive indicates a n onnegative test result by immunoassay screen. It is a preliminary result. [facility] recommends that a Presumptive Positive result be confirmed by an additional, more specific test such as mass spectrometry NOTE: Presumptive Positive indicates a n onnegative test result by immunoassay screen. It is a preliminary result. [facility] recommends that a Presumptive Positive result be confirmed by an additional, more specific test such as mass spectrometry NOTE: Presumptive Positive indicates a n onnegative test result by immunoassay screen. It is a preliminary result. [facility] recommends that a Presumptive Positive result be confirmed by an additional, more specific test such as mass spectrometry NOTE: Presumptive Positive indicates a n onnegative test result by immunoassay screen. It is a preliminary result. [facility] recommends that a Presumptive Positive result be confirmed by an additional, more specific test such as mass spectrometry NOTE: Presumptive Positive indicates a n onnegative test result by immunoassay screen. It is a preliminary result. [facility] recommends that a Presumptive Positive result be confirmed by an additional, more specific test such as mass spectrometry Name Value Range Interpretation Code Description Data Zoie rce(s) Supporting Document(s) MDMA 0.000NegativeNegative ng/mL 50.00 ng/mL [facility] MDEA 0.380NegativeNegative ng/mL 50.00 ng/mL [facility] MDA 0.000NegativeNegative ng/mL 50.00 ng/mL [facility] ID Date Data Source [id number] 06/25/2020 01:41:27 PM EDT [facility] NOTE: Presumptive Positive indicates a n onnegative test result by immunoassay screen. It is a preliminary result. [facility] recommends that a Presumptive Positive result be confirmed by an additional, more specific test such as mass spectrometry NOTE: Presumptive Positive indicates a n onnegative test result by immunoassay screen. It is a preliminary result. [facility] recommends that a Presumptive Positive result be confirmed by an additional, more specific test such as mass spectrometry NOTE: Presumptive Positive indicates a n onnegative test result by immunoassay screen. It is a preliminary result. [facility] recommends that a Presumptive Positive result be confirmed by an additional, more specific test such as mass spectrometry NOTE: Presumptive Positive indicates a n onnegative test result by immunoassay screen. It is a preliminary result. [facility] recommends that a Presumptive Positive result be confirmed by an additional, more specific test such as mass spectrometry NOTE: Presumptive Positive indicates a n onnegative test result by immunoassay screen. It is a preliminary result. [facility] recommends that a Presumptive Positive result be confirmed by an additional, more specific test such as mass spectrometry NOTE: Presumptive Positive indicates a n onnegative test result by immunoassay screen. It is a preliminary result. [facility] recommends that a Presumptive Positive result be confirmed by an additional, more specific test such as mass spectrometry NOTE: Presumptive Positive indicates a n onnegative test result by immunoassay screen. It is a preliminary result. [facility] recommends that a Presumptive Positive result be confirmed by an additional, more specific test such as mass spectrometry NOTE: Presumptive Positive indicates a n onnegative test result by immunoassay screen. It is a preliminary result. [facility] recommends that a Presumptive Positive result be confirmed by an additional, more specific test such as mass spectrometry NOTE: Presumptive Positive indicates a n onnegative test result by immunoassay screen. It is a preliminary result. [facility] recommends that a Presumptive Positive result be confirmed by an additional, more specific test such as mass spectrometry NOTE: Presumptive Positive indicates a n onnegative test result by immunoassay screen. It is a preliminary result. [facility] recommends that a Presumptive Positive result be confirmed by an additional, more specific test such as mass spectrometry NOTE: Presumptive Positive indicates a n onnegative test result by immunoassay screen. It is a preliminary result. [facility] recommends that a Presumptive Positive result be confirmed by an additional, more specific test such as mass spectrometry NOTE: Presumptive Positive indicates a n onnegative test result by immunoassay screen. It is a preliminary result. [facility] recommends that a Presumptive Positive result be confirmed by an additional, more specific test such as mass spectrometry Name Value Range Interpretation Code Description Data Zoie rce(s) Supporting Document(s) Temazepam 0.000NegativeNegative ng/mL 50.00 ng/mL [facility] Lorazepam 5.820NegativeNegative ng/mL 50.00 ng/mL [facility] alpha-Hydroxyalprazolam 0.000NegativeNegative ng/mL 50.00 ng /mL [facility] 7-Aminoclonazepam 0.000NegativeNegative ng/mL 50.00 ng/mL [facility] Oxazepam 8.660NegativeNegative ng/mL 50.00 ng/mL [facility] Nordiazepam 3.690NegativeNegative ng/mL 50.00 ng/mL [facility] ID Date Data Source [id number] 06/25/2020 01:41:28 PM EDT [facility] NOTE: Presumptive Positive indicates a n onnegative test result by immunoassay screen. It is a preliminary result. [facility] recommends that a Presumptive Positive result be confirmed by an additional, more specific test such as mass spectrometry NOTE: Presumptive Positive indicates a n onnegative test result by immunoassay screen. It is a preliminary result. [facility] recommends that a Presumptive Positive result be confirmed by an additional, more specific test such as mass spectrometry NOTE: Presumptive Positive indicates a n onnegative test result by immunoassay screen. It is a preliminary result. [facility] recommends that a Presumptive Positive result be confirmed by an additional, more specific test such as mass spectrometry NOTE: Presumptive Positive indicates a n onnegative test result by immunoassay screen. It is a preliminary result. [facility] recommends that a Presumptive Positive result be confirmed by an additional, more specific test such as mass spectrometry NOTE: Presumptive Positive indicates a n onnegative test result by immunoassay screen. It is a preliminary result. [facility] recommends that a Presumptive Positive result be confirmed by an additional, more specific test such as mass spectrometry NOTE: Presumptive Positive indicates a n onnegative test result by immunoassay screen. It is a preliminary result. [facility] recommends that a Presumptive Positive result be confirmed by an additional, more specific test such as mass spectrometry NOTE: Presumptive Positive indicates a n onnegative test result by immunoassay screen. It is a preliminary result. [facility] recommends that a Presumptive Positive result be confirmed by an additional, more specific test such as mass spectrometry NOTE: Presumptive Positive indicates a n onnegative test result by immunoassay screen. It is a preliminary result. [facility] recommends that a Presumptive Positive result be confirmed by an additional, more specific test such as mass spectrometry NOTE: Presumptive Positive indicates a n onnegative test result by immunoassay screen. It is a preliminary result. [facility] recommends that a Presumptive Positive result be confirmed by an additional, more specific test such as mass spectrometry NOTE: Presumptive Positive indicates a n onnegative test result by immunoassay screen. It is a preliminary result. [facility] recommends that a Presumptive Positive result be confirmed by an additional, more specific test such as mass spectrometry NOTE: Presumptive Positive indicates a n onnegative test result by immunoassay screen. It is a preliminary result. [facility] recommends that a Presumptive Positive result be confirmed by an additional, more specific test such as mass spectrometry NOTE: Presumptive Positive indicates a n onnegative test result by immunoassay screen. It is a preliminary result. [facility] recommends that a Presumptive Positive result be confirmed by an additional, more specific test such as mass spectrometry Name Value Range Interpretation Code Description Data Zoie rce(s) Supporting Document(s) Pregabalin 3.280NegativeNegative ng/mL 500.00 ng/mL [facility] Gabapentin 67.240NegativeNegative ng/mL 500.00 ng/mL [facility] ID Date Data Source [id number] 06/25/2020 01:41:29 PM EDT [facility] NOTE: Presumptive Positive indicates a n onnegative test result by immunoassay screen. It is a preliminary result. [facility] recommends that a Presumptive Positive result be confirmed by an additional, more specific test such as mass spectrometry NOTE: Presumptive Positive indicates a n onnegative test result by immunoassay screen. It is a preliminary result. [facility] recommends that a Presumptive Positive result be confirmed by an additional, more specific test such as mass spectrometry NOTE: Presumptive Positive indicates a n onnegative test result by immunoassay screen. It is a preliminary result. [facility] recommends that a Presumptive Positive result be confirmed by an additional, more specific test such as mass spectrometry NOTE: Presumptive Positive indicates a n onnegative test result by immunoassay screen. It is a preliminary result. [facility] recommends that a Presumptive Positive result be confirmed by an additional, more specific test such as mass spectrometry NOTE: Presumptive Positive indicates a n onnegative test result by immunoassay screen. It is a preliminary result. [facility] recommends that a Presumptive Positive result be confirmed by an additional, more specific test such as mass spectrometry NOTE: Presumptive Positive indicates a n onnegative test result by immunoassay screen. It is a preliminary result. [facility] recommends that a Presumptive Positive result be confirmed by an additional, more specific test such as mass spectrometry NOTE: Presumptive Positive indicates a n onnegative test result by immunoassay screen. It is a preliminary result. [facility] recommends that a Presumptive Positive result be confirmed by an additional, more specific test such as mass spectrometry NOTE: Presumptive Positive indicates a n onnegative test result by immunoassay screen. It is a preliminary result. [facility] recommends that a Presumptive Positive result be confirmed by an additional, more specific test such as mass spectrometry NOTE: Presumptive Positive indicates a n onnegative test result by immunoassay screen. It is a preliminary result. [facility] recommends that a Presumptive Positive result be confirmed by an additional, more specific test such as mass spectrometry NOTE: Presumptive Positive indicates a n onnegative test result by immunoassay screen. It is a preliminary result. [facility] recommends that a Presumptive Positive result be confirmed by an additional, more specific test such as mass spectrometry NOTE: Presumptive Positive indicates a n onnegative test result by immunoassay screen. It is a preliminary result. [facility] recommends that a Presumptive Positive result be confirmed by an additional, more specific test such as mass spectrometry NOTE: Presumptive Positive indicates a n onnegative test result by immunoassay screen. It is a preliminary result. [facility] recommends that a Presumptive Positive result be confirmed by an additional, more specific test such as mass spectrometry Name Value Range Interpretation Code Description Data Zoie rce(s) Supporting Document(s) 5-Fluoro AMB 0.000NegativeNegative ng/mL 0.20 ng/mL [facility] 4-zyottc-SHK metabolite 7 0.000NegativeNegative ng/mL 0.40 n g/mL [facility] 5-cxdejt-MGFC-PICA metabolite 7 0.000NegativeNegative n g/mL 0.20 ng/mL [facility] 3-Soskdv-XX-22 3-Carboxyindole metabolite 0.000Negative *Negative ng/mL 1.00 ng/mL [facility] 1M-FNLR-VLQZPR 0.000NegativeNegative ng/mL 0.20 ng/mL [facility] AB-CHMINACA 0.000NegativeNegative ng/mL 0.20 ng/mL [facility] AB-CHMINACA metabolite M2 0.000NegativeNegative ng/mL 0.20 n g/mL [facility] AB-FUBINACA 0.000NegativeNegative ng/mL 1.00 ng/mL [facility] AB-FUBINACA metabolite 3 0.000NegativeNegative ng/mL 0.20 ng /mL [facility] AB-PINACA 0.000NegativeNegative ng/mL 1.00 ng/mL [facility] AB-PINACA 5-Pentanoic acid metabolite 0.000NegativeNeg ative ng/mL 1.00 ng/mL [facility] ADB-FUBINACA 0.000NegativeNegative ng/mL 1.00 ng/mL [facility] AKB48 0.000NegativeNegative ng/mL 0.20 ng/mL [facility] UC1243 0.000NegativeNegative ng/mL 0.20 ng/mL [facility] BB-22 3-carboxyindole metabolite 0.000NegativeNegative ng/mL 2.00 ng/mL [facility] JWH-018 0.000NegativeNegative ng/mL 0.20 ng/mL [facility] JWH-018 5-Pentanoic acid metabolite 0.000NegativeNegat joan ng/mL 0.20 ng/mL [facility] JWH-073 0.000NegativeNegative ng/mL 0.20 ng/mL [facility] MAB-CHMINACA 0.000NegativeNegative ng/mL 1.00 ng/mL [facility] MAB-CHMINACA metabolite M2 0.030NegativeNegative ng/mL 0.40 ng/mL [facility] MDMB-FUBICA metabolite 3 0.000NegativeNegative ng/mL 0.20 ng /mL [facility] MDMB-FUBINACA 0.000NegativeNegative ng/mL 0.20 ng/mL [facility] MDMB-FUBINACA metabolite M1 0.010NegativeNegative ng/mL 0.20 ng/mL [facility] MMB-CHMICA 0.000NegativeNegative ng/mL 0.20 ng/mL [facility] MMB-FUBINACA 0.000NegativeNegative ng/mL 0.20 ng/mL [facility] PB-22 3-carboxyindole metabolite 0.250NegativeNegative ng/mL 1.00 ng/mL [facility] UR-144 0.000NegativeNegative ng/mL 0.20 ng/mL [facility] UR-144 5-Pentanoic acid metabolite 0.000NegativeNegati ve ng/mL 1.00 ng/mL [facility] XLR-11 0.000NegativeNegative ng/mL 0.20 ng/mL [facility] ID Date Data Source [id number] 06/12/2020 04:00:00 AM EDT [facility] ([employer]) Name Value Range Interpretation Code Description Data Zoie rce(s) Supporting Document(s) pH of Lower respiratory specimen 6.2NORMALNORMAL [facility] ([employer]) Creatinine [Interpretation] in Urine 231.9NORMALNORMAL [facility] ([employer]) Oxidants [Presence] in Urine -5.00NegativeNegative [facility] ([employer]) Validity Result VALIDVALIDVALID [facility] ([employer]) 6-MIGUEL 1.310NegativeNegative [facility] ([employer]) Buprenorphine [Presence] in Blood by Screen method 250 Positive - ConsistentPOSITIVE> [facility] ([employer]) Naloxone [Mass/volume] in Urine by Confirmatory method 0.000NegativeNegative [facility] ( [facility]) Norbuprenorphine [Mass/mass] in Meconium by Confirmato ry method 500Positive - ConsistentPOSITIVE> [facility] ([facility]) Morphine [Mass/mass] in Hair 2.190NegativeNegative [facility] ([facility]) Codeine [Presence] in Saliva (oral fluid) by Confirmat ory method 0.000NegativeNegative [facility] ( [facility]) Hydrocodone [Z-score] in Urine 4.650NegativeNegative [facility] ([facility]) Hydromorphone [Presence] in Saliva (oral fluid) by Con firmatory method 3.670NegativeNegative [facility] ( [facility]) Norfentanyl [Mass/volume] in Serum, Plasma or Blood by Confirmatory method 18.700Positive - InconsistentPOSITIVE [facility] ([facility]) Fentanyl [Z-score] in Urine 1.680Positive - InconsistentPOSITIV E [facility] ([facility]) Norhydrocodone [Presence] in Saliva (oral fluid) by Co nfirmatory method 6.050NegativeNegative [facility] ( [facility]) Carfentanil 0.030NegativeNegative [facility] ([facility]) Norcarfentanil 0.150NegativeNegative [facility] ([facility]) Oxycodone [Mass/volume] in Serum, Plasma or Blood by C onfirmatory method 2.270NegativeNegative [facility] ( [facility]) Sufentanil [Mass/volume] in Urine 0.110NegativeNegative [facility] ([facility]) Benzoylecgonine [Moles/volume] in Unspecified specimen 1.970NegativeNegative [facility] ( [facility]) Noroxycodone [Mass/volume] in Saliva (oral fluid) by C onfirmatory method 6.540NegativeNegative [facility] ( [facility]) Oxymorphone [Z-score] in Urine 3.620NegativeNegative [facility] ([facility]) Methamphetamine [Mass/mass] in Hair 2.870NegativeNegative [facility] ([facility]) Amphetamine [Mass/mass] in Hair by Confirmatory method 0.000NegativeNegative [facility] ( [facility]) MDEA 5.680NegativeNegative [facility] ([facility]) MDMA 6.190NegativeNegative [facility] ([facility]) THC-COOH 3.490NegativeNegative [facility] ([facility]) MDA 8.980NegativeNegative [facility] ([facility]) Temazepam [Moles/volume] in Unspecified specimen 10.50 0NegativeNegative [facility] ([facility]) Lorazepam [Moles/volume] in Unspecified specimen 6.290Neg ativeNegative [facility] ([facility]) alpha-Hydroxyalprazolam 2.080NegativeNegative [facility] ([facility]) 7-Aminoclonazepam [Mass/mass] in Hair 4.690NegativeNegative [facility] ([facility]) Oxazepam [Moles/volume] in Unspecified specimen 15.050Neg ativeNegative [facility] ([facility]) Nordiazepam [Moles/volume] in Unspecified specimen 5.440NegativeNegative [facility] ( [facility]) Butalbital [Presence] in Saliva (oral fluid) by Confir matory method 42.980NegativeNegative [facility] ([facility]) Phenobarbital [Presence] in Saliva (oral fluid) by Con firmatory method 0.000NegativeNegative [facility] ( [facility]) Ethyl sulfate [Presence] in Urine by Confirmatory meth od 18.910NegativeNegative [facility] ([facility]) Secobarbital [Moles/volume] in Urine 31.020NegativeNegative [facility] ([facility]) Trazodone [Moles/volume] in Unspecified specimen 50 Positive - ConsistentPOSITIVE> [facility] ([facility]) Ethyl glucuronide [Mass/volume] in Urine by Confirmato ry method 47.370NegativeNegative [facility] ([facility]) 5-Fluoro AMB 0.030NegativeNegative [facility] ([facility]) mCPP 50Positive - ConsistentPOSITIVE> [facility] ([facility]) 3-Etvlcb-DG-22 3-Carboxyindole metabolite 0.000NegativeNegative [facility] ([facility]) 4-yqrzew-LRPO-PICA metabolite 7 0.100NegativeNegative [facility] ([facility]) 0-nyhcag-ULC metabolite 7 0.000NegativeNegative [facility] ([facility]) 8X-WZNK-FZGNZU 0.000NegativeNegative [facility] ([facility]) AB-CHMINACA 0.060NegativeNegative [facility] ([facility]) AB-FUBINACA metabolite 3 0.000NegativeNegative [facility] ([facility]) AB-FUBINACA 0.020NegativeNegative [facility] ([facility]) AB-CHMINACA metabolite M2 0.010NegativeNegative [facility] ([facility]) AB-PINACA 5-Pentanoic acid metabolite 0.000NegativeNegative [facility] ([facility]) AB-PINACA 0.000NegativeNegative [facility] ([facility]) BX3117 0.000NegativeNegative [facility] ([facility]) AKB48 0.000NegativeNegative [facility] ([facility]) ADB-FUBINACA 0.000NegativeNegative [facility] ([facility]) JWH-018 5-Pentanoic acid metabolite 0.000NegativeNegative [facility] ([facility]) JWH-018 (synthetic cannabinoid) [Presence] in Blood 0.000NegativeNegative [facility] ( [facility]) BB-22 3-carboxyindole metabolite 0.000NegativeNegative [facility] ([facility]) MAB-CHMINACA 0.310NegativeNegative [facility] ([facility]) JWH-073 (synthetic cannabinoid) [Presence] in Blood 0.000NegativeNegative [facility] ( [facility]) MAB-CHMINACA metabolite M2 0.000NegativeNegative [facility] ([facility]) MDMB-FUBICA metabolite 3 0.030NegativeNegative [facility] ([facility]) MDMB-FUBINACA 0.000NegativeNegative [facility] ([facility]) MMB-CHMICA 0.000NegativeNegative [facility] ([facility]) MDMB-FUBINACA metabolite M1 0.000NegativeNegative [facility] ([facility]) MMB-FUBINACA 0.000NegativeNegative [facility] ([facility]) UR-144 (synthetic cannabinoid) [Presence] in Blood 0.000NegativeNegative [facility] ( [facility]) PB-22 3-carboxyindole metabolite 0.140NegativeNegative [facility] ([facility]) XLR-11 0.000NegativeNegative [facility] ([facility]) UR-144 5-Pentanoic acid metabolite 0.000NegativeNegative [facility] ([facility]) ID Date Data Source [id number] 06/18/2020 07:43:20 AM EDT [facility] Name Value Range Interpretation Code Description Data Zoie rce(s) Supporting Document(s) Creatinine 231.9NORMALNORMAL mg/dL 20.0-300.0 mg/dL [facility] pH 6.2NORMALNORMAL 3.5-9.2 [facility] Oxidants -5.00NegativeNegative mcg/mL 200.00 mcg/mL [facility] Validity Result VALIDVALIDVALID [facility] ID Date Data Source [id number] 06/18/2020 07:43:22 AM EDT [facility] Name Value Range Interpretation Code Description Data [facility] Supporting Document(s) 6-MIGUEL 1.310NegativeNegative ng/mL 10.00 ng/mL [facility] ID Date Data Source [id number] 06/18/2020 07:43:22 AM EDT [facility] Name Value Range Interpretation Code Description Data [facility] rce(s) Supporting Document(s) Buprenorphine 250Positive - ConsistentPOSITIVE> ng/mL 5.00 n g/mL [facility] Norbuprenorphine 500Positive - ConsistentPOSITIVE> ng/mL 1 0.00 ng/mL [facility] Naloxone 0.000NegativeNegative ng/mL 25.00 ng/mL [facility] ID Date Data Source [id number] 06/18/2020 07:43:23 AM EDT [facility] Name Value Range Interpretation Code Description Data [facility] rce(s) Supporting Document(s) Morphine 2.190NegativeNegative ng/mL 50.00 ng/mL [facility] Codeine 0.000NegativeNegative ng/mL 50.00 ng/mL [facility] Hydromorphone 3.670NegativeNegative ng/mL 50.00 ng/mL [facility] Hydrocodone 4.650NegativeNegative ng/mL 50.00 ng/mL [facility] Norhydrocodone 6.050NegativeNegative ng/mL 50.00 ng/mL [facility] ID Date Data Source [id number] 06/18/2020 07:43:26 AM EDT [facility] Name Value Range Interpretation Code Description Data Zoie rce(s) Supporting Document(s) Norfentanyl 18.700Positive - InconsistentPOSITIVE n g/mL 1.00 ng/mL Abnormal (applies to non-numeric results) [facility] Fentanyl 1.680Positive - InconsistentPOSITIVE ng /mL 1.00 ng/mL Abnormal (applies to non-numeric results) [facility] Carfentanil 0.030NegativeNegative ng/mL 1.00 ng/mL [facility] Norcarfentanil 0.150NegativeNegative ng/mL 1.00 ng/mL [facility] Sufentanil 0.110NegativeNegative ng/mL 1.00 ng/mL [facility] ID Date Data Source [id number] 06/18/2020 07:43:28 AM EDT [facility] Name Value Range Interpretation Code Description Data Zoie rce(s) Supporting Document(s) Oxycodone 2.270NegativeNegative ng/mL 50.00 ng/mL [facility] Oxymorphone 3.620NegativeNegative ng/mL 50.00 ng/mL [facility] Noroxycodone 6.540NegativeNegative ng/mL 50.00 ng/mL [facility] ID Date Data Source [id number] 06/18/2020 07:43:29 AM EDT [facility] Name Value Range Interpretation Code Description Data Zoie rce(s) Supporting Document(s) Benzoylecgonine 1.970NegativeNegative ng/mL 50.00 ng/mL [facility] ID Date Data Source [id number] 06/18/2020 07:43:29 AM EDT [facility] Name Value Range Interpretation Code Description Data Zoie rce(s) Supporting Document(s) Methamphetamine 2.870NegativeNegative ng/mL 50.00 ng/mL [facility] Amphetamine 0.000NegativeNegative ng/mL 50.00 ng/mL [facility] ID Date Data Source [id number] 06/18/2020 07:43:30 AM EDT [facility] Name Value Range Interpretation Code Description Data Zoie rce(s) Supporting Document(s) MDMA 6.190NegativeNegative ng/mL 50.00 ng/mL [facility] MDEA 5.680NegativeNegative ng/mL 50.00 ng/mL [facility] MDA 8.980NegativeNegative ng/mL 50.00 ng/mL [facility] ID Date Data Source [id number] 06/18/2020 07:43:30 AM EDT [facility] Name Value Range Interpretation Code Description Data Zoie rce(s) Supporting Document(s) THC-COOH 3.490NegativeNegative ng/mL 15.00 ng/mL [facility] ID Date Data Source [id number] 06/18/2020 07:43:31 AM EDT [facility] Name Value Range Interpretation Code Description Data Zoie rce(s) Supporting Document(s) Temazepam 10.500NegativeNegative ng/mL 50.00 ng/mL [facility] Lorazepam 6.290NegativeNegative ng/mL 50.00 ng/mL [facility] alpha-Hydroxyalprazolam 2.080NegativeNegative ng/mL 50.00 ng /mL [facility] 7-Aminoclonazepam 4.690NegativeNegative ng/mL 50.00 ng/mL [facility] Oxazepam 15.050NegativeNegative ng/mL 50.00 ng/mL [facility] Nordiazepam 5.440NegativeNegative ng/mL 50.00 ng/mL [facility] ID Date Data Source [id number] 06/18/2020 07:43:33 AM EDT [facility] Name Value Range Interpretation Code Description Data Zoie rce(s) Supporting Document(s) Butalbital 42.980NegativeNegative ng/mL 200.00 ng/mL [facility] Phenobarbital 0.000NegativeNegative ng/mL 200.00 ng/mL [facility] Secobarbital 31.020NegativeNegative ng/mL 200.00 ng/mL [facility] ID Date Data Source [id number] 06/18/2020 07:43:34 AM EDT [facility] Name Value Range Interpretation Code Description Data Zoie rce(s) Supporting Document(s) Ethyl Sulfate 18.910NegativeNegative ng/mL 500.00 ng/mL [facility] Ethyl Glucuronide 47.370NegativeNegative ng/mL 500.00 ng/mL [facility] ID Date Data Source [id number] 06/18/2020 07:43:34 AM EDT [facility] Name Value Range Interpretation Code Description Data Zoie rce(s) Supporting Document(s) Trazodone 50Positive - ConsistentPOSITIVE> ng/mL 1.00 ng/mL [facility] mCPP 50Positive - ConsistentPOSITIVE> ng/mL 1.00 ng/mL [facility] ID Data Source [id number] 06/18/2020 07:43:34 AM EDT [facility] Name Value Range Interpretation Code Description Data Zoie rce(s) Supporting Document(s) 5-Fluoro AMB 0.030NegativeNegative ng/mL 0.20 ng/mL [facility] 0-lccdwo-NLL metabolite 7 0.000NegativeNegative ng/mL 0.40 n g/mL [facility] 6-hjwtwa-WGLA-PICA metabolite 7 0.100NegativeNegative n g/mL 0.20 ng/mL [facility] 7-Bgvsnw-DP-22 3-Carboxyindole metabolite 0.000Negative *Negative ng/mL 1.00 ng/mL [facility] 9Z-VLWA-BCIQDS 0.000NegativeNegative ng/mL 0.20 ng/mL [facility] AB-CHMINACA 0.060NegativeNegative ng/mL 0.20 ng/mL [facility] AB-CHMINACA metabolite M2 0.010NegativeNegative ng/mL 0.20 n g/mL [facility] AB-FUBINACA 0.020NegativeNegative ng/mL 1.00 ng/mL [facility] AB-FUBINACA metabolite 3 0.000NegativeNegative ng/mL 0.20 ng /mL [facility] AB-PINACA 0.000NegativeNegative ng/mL 1.00 ng/mL [facility] AB-PINACA 5-Pentanoic acid metabolite 0.000NegativeNeg ative ng/mL 1.00 ng/mL [facility] ADB-FUBINACA 0.000NegativeNegative ng/mL 1.00 ng/mL [facility] AKB48 0.000NegativeNegative ng/mL 0.20 ng/mL [facility] [id number] 0.000NegativeNegative ng/mL 0.20 ng/mL [facility] BB-22 3-carboxyindole metabolite 0.000NegativeNegative ng/mL 2.00 ng/mL [facility] JWH-018 0.000NegativeNegative ng/mL 0.20 ng/mL [facility] JWH-018 5-Pentanoic acid metabolite 0.000NegativeNegat joan ng/mL 0.20 ng/mL [facility] JWH-073 0.000NegativeNegative ng/mL 0.20 ng/mL [facility] MAB-CHMINACA 0.310NegativeNegative ng/mL 1.00 ng/mL [facility] MAB-CHMINACA metabolite M2 0.000NegativeNegative ng/mL 0.40 ng/mL [facility] MDMB-FUBICA metabolite 3 0.030NegativeNegative ng/mL 0.20 ng /mL [facility] MDMB-FUBINACA 0.000NegativeNegative ng/mL 0.20 ng/mL [facility] MDMB-FUBINACA metabolite M1 0.000NegativeNegative ng/mL 0.20 ng/mL [facility] MMB-CHMICA 0.000NegativeNegative ng/mL 0.20 ng/mL [facility] MMB-FUBINACA 0.000NegativeNegative ng/mL 0.20 ng/mL [facility] PB-22 3-carboxyindole metabolite 0.140NegativeNegative ng/mL 1.00 ng/mL [facility] UR-144 0.000NegativeNegative ng/mL 0.20 ng/mL [facility] UR-144 5-Pentanoic acid metabolite 0.000NegativeNegati ve ng/mL 1.00 ng/mL [facility] XLR-11 0.000NegativeNegative ng/mL 0.20 ng/mL [facility] ID Date Data Source [id number] 06/06/2020 07:56:00 PM EDT [facility] Name Value Range Interpretation Code Description Data Zoie rce(s) Supporting Document(s) Creatinine [Interpretation] in Urine 12.7Creatinine confirmed.Creatinine confirmed. [facility]) Oxidants [Presence] in Urine -5.00NegativeNegative [facility] ([facility]) pH of Lower respiratory specimen 6.8NORMALNORMAL [facility]) Amphetamines [Presence] in Stool 21.00NegativeNegative NETSMART ([facility]) Specific gravity of Pericardial fluid by Refractometry 1.003NORMALNORMAL NETSMART ([facility]) Validity Result VALIDVALIDVALID NETSMART ([facility]) Barbiturates [Mass/volume] in Serum or Plasma 1.00NegativeNeg ative NETSMART ([facility]) Benzodiazepines [Presence] in Serum or Plasma by Scree n method >200 ng/mL -11.00NegativeNegative NETSMART ([facility]) Buprenorphine [Presence] in Blood by Screen method 32. 90PRESUMPTIVE POSITIVEPRESUMPTIVE POSITIVE NETSMA RT ([facility]) Cocaine Metabolites -13.00NegativeNegative NETSMART ([facility]) Ethyl glucuronide [Mass/volume] in Urine by Confirmato ry method -36.00NegativeNegative [facility]SM[facility] ([facility]) EDDP -8.00NegativeNegative [facility]) Ethyl Alcohol -1.00NegativeNegative [facility]SM[facility] ([facility]) Heroin (6-AM) 0.20NegativeNegative [facility]) Fentanyl [Z-score] in Urine 3.500PRESUMPTIVE POSITI VEPRESUMPTIVE POSITIVE NETSMART ([facility]) Methadone [Mass/volume] in Blood -13.00NegativeNegative [facility]SMART ([facility]) Opiates [Presence] in Unknown substance by Confirmator y method 7.00NegativeNegative [facility]SM[facility] ([facility]) Synthetic Opiates -1.00NegativeNegative NETSMART ([facility]) Phencyclidine [Presence] in Unknown substance by Confi rmatory method -0.70NegativeNegative NETSMART ( [facility]) Tramadol [Presence] in Blood by Screen method -16.00Negative* Negative NETSMART ([facility]) Cannabinoids [Presence] in Unknown substance by Confir matory method -9.20NegativeNegative NETSMART ( [facility]) Tricyclics 9.00NegativeNegative NETSMART ([facility]) Ecstasy (MDMA) -9.00NegativeNegative [facility]SMART ([facility]) Buprenorphine [Presence] in Blood by Screen method 32. 360Positive - ConsistentPOSITIVE NETSMART ([facility]) Naloxone [Mass/volume] in Urine by Confirmatory method 0.000Negative - InconsistentNegative NETSMART ([facility]) Norbuprenorphine [Mass/mass] in Meconium by Confirmato ry method 19.520Positive - ConsistentPOSITIVE NETSMART ([facility]) Fentanyl [Z-score] in Urine 5.300Positive - InconsistentPOSITIV E NETSMART ([facility]) Norfentanyl [Mass/volume] in Serum, Plasma or Blood by Confirmatory method 10.070Positive - InconsistentPOSITIVE NETSMART ([facility]) Norcarfentanil 0.000NegativeNegative NETSM[facility] ([facility]) Carfentanil 0.000NegativeNegative [facility]SM[facility] ([facility]) Sufentanil [Mass/volume] in Urine 0.080NegativeNegative NETSMART ([facility]) ID Date Data Source [id number] 06/09/2020 06:22:51 PM EDT [facility] NOTE: Presumptive Positive indicates a n onnegative test result by immunoassay screen. It is a preliminary result. [facility] recommends that a Presumptive Positive result be confirmed by an additional, more specific test such as mass spectrometry Name Value Range Interpretation Code Description Data Zoie rce(s) Supporting Document(s) Creatinine 12.7Creatinine confirmed.Creatinin e confirmed. mg/dL 20.0- 300.0 mg/dL [facility] pH 6.8NORMALNORMAL 3.5-9.2 [facility] Oxidants -5.00NegativeNegative mcg/mL 200.00 mcg/mL [facility] Validity Result VALIDVALIDVALID [facility] Specific [place] 1.003NORMALNORMAL 1.003-1.029 [facility] ID Date Data Source [id number] 06/09/2020 06:22:51 PM EDT [facility] NOTE: Presumptive Positive indicates a n onnegative test result by immunoassay screen. It is a preliminary result. [facility] recommends that a Presumptive Positive result be confirmed by an additional, more specific test such as mass spectrometry Name Value Range Interpretation Code Description Data Zoie rce(s) Supporting Document(s) Amphetamines 21.00NegativeNegative ng/mL 500.00 ng/mL [facility] Barbiturates 1.00NegativeNegative ng/mL 200.00 ng/mL [facility] Benzodiazepines -11.00NegativeNegative ng/mL 200.00 ng/mL [facility] Buprenorphine 32.90PRESUMPTIVE POSITIVEPRESUMPTI VE POSITIVE ng/mL 10.00 ng/mL [facility] Cocaine Metabolites -13.00NegativeNegative ng/mL 300.00 ng/m L [facility] EDDP -8.00NegativeNegative ng/mL 1000.00 ng/mL [facility] Ethyl Glucuronide -36.00NegativeNegative ng/mL 500.00 ng/mL [facility] Ethyl Alcohol -1.00NegativeNegative mg/dL 100.00 mg/dL [facility] Fentanyl 3.500PRESUMPTIVE POSITIVEPRESUMPTI VE POSITIVE ng/mL 1.00 ng/mL [facility] Heroin (6-AM) 0.20NegativeNegative ng/mL 10.00 ng/mL [facility] Methadone -13.00NegativeNegative ng/mL 300.00 ng/mL [facility] Opiates 7.00NegativeNegative ng/mL 300.00 ng/mL [facility] Synthetic Opiates -1.00NegativeNegative ng/mL 100.00 ng/mL [facility] Phencyclidine -0.70NegativeNegative ng/mL 25.00 ng/mL [facility] Cannabinoids -9.20NegativeNegative ng/mL 20.00 ng/mL [facility] Tramadol -16.00NegativeNegative ng/mL 200.00 ng/mL [facility] Tricyclics 9.00NegativeNegative ng/mL 500.00 ng/mL [facility] Ecstasy (MDMA) -9.00NegativeNegative ng/mL 500.00 ng/mL [facility] ID Date Data Source [id number] 06/09/2020 06:22:52 PM EDT [facility] NOTE: Presumptive Positive indicates a n onnegative test result by immunoassay screen. It is a preliminary result. [facility] recommends that a Presumptive Positive result be confirmed by an additional, more specific test such as mass spectrometry Name Value Range Interpretation Code Description Data Zoie rce(s) Supporting Document(s) Buprenorphine 32.360Positive - ConsistentPOSITIVE ng/mL 5.00 ng/mL [facility] Norbuprenorphine 19.520Positive - ConsistentPOSITIVE ng /mL 10.00 ng/mL [facility] Naloxone 0.000Negative - InconsistentNegative ng /mL 25.00 ng/mL Abnormal (applies to non-numeric results) [facility] ID Date Data Source [id number] 06/09/2020 06:22:53 PM EDT [facility] NOTE: Presumptive Positive indicates a n onnegative test result by immunoassay screen. It is a preliminary result. [facility] recommends that a Presumptive Positive result be confirmed by an additional, more specific test such as mass spectrometry Name Value Range Interpretation Code Description Data Zoie e(s) Supporting Document(s) Norfentanyl 10.070Positive - InconsistentPOSITIVE n g/mL 1.00 ng/mL Abnormal (applies to non-numeric results) [facility] Fentanyl 5.300Positive - InconsistentPOSITIVE ng /mL 1.00 ng/mL Abnormal (applies to non-numeric results) [facility] Carfentanil 0.000NegativeNegative ng/mL 1.00 ng/mL [facility] Norcarfentanil 0.000NegativeNegative ng/mL 1.00 ng/mL [facility] Sufentanil 0.080NegativeNegative ng/mL 1.00 ng/mL [facility] ID Date Data Source [id number] 06/05/2020 10:03:00 PM EDT [facility] ([facility] [employer]) Name Value Range Interpretation Code Description Data Zoie rce(s) Supporting Document(s) Creatinine [Interpretation] in Urine 179.7NORMALNORMAL [facility] ([employer]) pH of Lower respiratory specimen 5.9NORMALNORMAL [facility] ([facility]) Validity Result VALIDVALIDVALID [facility] ([facility]) Oxidants [Presence] in Urine -5.00NegativeNegative [facility] ([facility]) Methadone [Mass/volume] in Blood -24.00NegativeNegative [facility] ([facility]) Opiates [Presence] in Unknown substance by Confirmator y method 15.00NegativeNegative [facility]SM[facility] ( [facility]) Ethyl glucuronide [Mass/volume] in Urine by Confirmato ry method 255.00NegativeNegative [facility]SM[facility] ([facility]) Synthetic Opiates -18.00NegativeNegative [facility] ([facility]) Phencyclidine [Presence] in Unknown substance by Confi rmatory method -5.20NegativeNegative [facility]SM[facility] ( [employer]) Tramadol [Presence] in Blood by Screen method 1.00NegativeNeg ative [facility]SM[facility] ([facility]) Amphetamines [Presence] in Stool 412.00NegativeNegative [facility] ([facility]) 6-MIGUEL 1.940NegativeNegative [facility]SMART ([facility]) Buprenorphine [Presence] in Blood by Screen method 250 Positive - ConsistentPOSITIVE> NETSMART ([facility]) Norbuprenorphine [Mass/mass] in Meconium by Confirmato ry method 266.710Positive - ConsistentPOSITIVE NETSMART ([facility]) Naloxone [Mass/volume] in Urine by Confirmatory method 0.000Negative - InconsistentNegative [facility]SM[facility] ([facility]) Carfentanil 0.000NegativeNegative [facility]SM[facility] ([facility]) Fentanyl [Z-score] in Urine 45.060Positive - InconsistentPOSI TIVE NETSMART ([facility]) Norfentanyl [Mass/volume] in Serum, Plasma or Blood by Confirmatory method 50Positive - InconsistentPOSITIVE> NETSMART ([facility]) Sufentanil [Mass/volume] in Urine 0.040NegativeNegative [facility] ([facility]) Norcarfentanil 0.100NegativeNegative [facility]SM[facility] ([facility]) Noroxycodone [Mass/volume] in Saliva (oral fluid) by C onfirmatory method 6.250NegativeNegative [facility] ( [facility]) Oxycodone [Mass/volume] in Serum, Plasma or Blood by C onfirmatory method 2.210NegativeNegative [facility] ( [facility]) Oxymorphone [Z-score] in Urine 1.610NegativeNegative [facility] ([facility]) Methamphetamine [Mass/mass] in Hair 6.320NegativeNegative [facility]SM[facility] ([facility]) Benzoylecgonine [Moles/volume] in Unspecified specimen 1.400NegativeNegative [facility] ( [facility]) MDMA 6.040NegativeNegative [facility] ([facility]) Amphetamine [Mass/mass] in Hair by Confirmatory method 0.050NegativeNegative [facility] ( [facility]) MDEA 4.850NegativeNegative [facility] ([facility]) MDA 4.580NegativeNegative [facility] ([facility]) THC-COOH 2.920NegativeNegative [facility]SMART ([facility]) Temazepam [Moles/volume] in Unspecified specimen 8.140Neg ativeNegative [facility]SMART ([facility]) Lorazepam [Moles/volume] in Unspecified specimen 7.190Neg ativeNegative [facility]SMART ([facility]) 7-Aminoclonazepam [Mass/mass] in Hair 0.980NegativeNegative [facility]SM[facility] ([facility]) alpha-Hydroxyalprazolam 0.000NegativeNegative [facility]SM[facility] ([facility]) Nordiazepam [Moles/volume] in Unspecified specimen 5.310NegativeNegative [facility]SM[facility] ( [facility]) Oxazepam [Moles/volume] in Unspecified specimen 11.070Neg ativeNegative [facility]SM[facility] ([facility]) Pregabalin [Presence] in Urine by Screen method 54.990Neg ativeNegative [facility]SM[facility] ([facility]) Ethyl glucuronide [Mass/volume] in Urine by Confirmato ry method 79.080NegativeNegative [facility] ([facility]) Ethyl sulfate [Presence] in Urine by Confirmatory meth od 40.690NegativeNegative [facility]SM[facility] ([facility]) Gabapentin [Mass/volume] in Urine by Confirmatory meth od 118.750NegativeNegative [facility] ([facility]) 5-Fluoro AMB 0.010NegativeNegative [facility] ([facility]) 0-xcppan-ZMF metabolite 7 0.030NegativeNegative [facility] ([facility]) 4-vncreo-WRGM-PICA metabolite 7 0.000NegativeNegative [facility] ([facility]) AB-CHMINACA 0.000NegativeNegative [facility] ([facility]) 2-Tbigxx-WR-22 3-Carboxyindole metabolite 0.000NegativeNegative [facility] ([facility]) 9F-BZLV-KJTQPC 0.000NegativeNegative [facility]SMART ([facility]) AB-CHMINACA metabolite M2 0.020NegativeNegative [facility] ([facility]) AB-FUBINACA 0.000NegativeNegative [facility] ([facility]) AB-FUBINACA metabolite 3 0.000NegativeNegative [facility]SM[facility] ([facility]) AB-PINACA 5-Pentanoic acid metabolite 0.000NegativeNegative [facility] ([facility]) AB-PINACA 0.000NegativeNegative [facility] ([facility]) ADB-FUBINACA 0.010NegativeNegative [facility] ([facility]) [id number] 0.010NegativeNegative [facility] ([facility]) AKB48 0.000NegativeNegative [facility] ([facility]) JWH-018 (synthetic cannabinoid) [Presence] in Blood 0.010NegativeNegative [facility] ( [facility]) BB-22 3-carboxyindole metabolite 0.000NegativeNegative [facility] ([facility]) JWH-018 5-Pentanoic acid metabolite 0.000NegativeNegative [facility] ([facility]) JWH-073 (synthetic cannabinoid) [Presence] in Blood 0.000NegativeNegative [facility] ( [facility]) MAB-CHMINACA metabolite M2 0.050NegativeNegative [facility] ([facility]) MAB-CHMINACA 0.000NegativeNegative [facility]SM[facility] ([facility]) MDMB-FUBINACA 0.000NegativeNegative [facility]SM[facility] ([facility]) MDMB-FUBICA metabolite 3 0.010NegativeNegative [facility]SM[facility] ([facility]) MMB-CHMICA 0.000NegativeNegative NETSMART ([facility]) MDMB-FUBINACA metabolite M1 0.030NegativeNegative [facility]SMART ([facility]) MMB-FUBINACA 0.000NegativeNegative NETSMART ([facility]) PB-22 3-carboxyindole metabolite 0.060NegativeNegative [facility]SM[facility] ([facility]) UR-144 (synthetic cannabinoid) [Presence] in Blood 0.000NegativeNegative [facility] ( [facility]) XLR-11 0.000NegativeNegative [facility] ([facility]) UR-144 5-Pentanoic acid metabolite 0.000NegativeNegative [facility] ([facility]) ID Date Data Source [id number] 06/11/2020 04:40:23 PM EDT [facility] NOTE: Presumptive Positive indicates a n onnegative test result by immunoassay screen. It is a preliminary result. [facility] recommends that a Presumptive Positive result be confirmed by an additional, more specific test such as mass spectrometry NOTE: Presumptive Positive indicates a n onnegative test result by immunoassay screen. It is a preliminary result. [facility] recommends that a Presumptive Positive result be confirmed by an additional, more specific test such as mass spectrometry NOTE: Presumptive Positive indicates a n onnegative test result by immunoassay screen. It is a preliminary result. [facility] recommends that a Presumptive Positive result be confirmed by an additional, more specific test such as mass spectrometry NOTE: Presumptive Positive indicates a n onnegative test result by immunoassay screen. It is a preliminary result. [facility] recommends that a Presumptive Positive result be confirmed by an additional, more specific test such as mass spectrometry NOTE: Presumptive Positive indicates a n onnegative test result by immunoassay screen. It is a preliminary result. [facility] recommends that a Presumptive Positive result be confirmed by an additional, more specific test such as mass spectrometry NOTE: Presumptive Positive indicates a n onnegative test result by immunoassay screen. It is a preliminary result. [facility] recommends that a Presumptive Positive result be confirmed by an additional, more specific test such as mass spectrometry NOTE: Presumptive Positive indicates a n onnegative test result by immunoassay screen. It is a preliminary result. [facility] recommends that a Presumptive Positive result be confirmed by an additional, more specific test such as mass spectrometry Name Value Range Interpretation Code Description Data Zoie rce(s) Supporting Document(s) Creatinine 179.7NORMALNORMAL mg/dL 20.0-300.0 mg/dL [facility] pH 5.9NORMALNORMAL 3.5-9.2 [facility] Oxidants -5.00NegativeNegative mcg/mL 200.00 mcg/mL [facility] Validity Result VALIDVALIDVALID [facility] ID Date Data Source [id number] 06/11/2020 04:40:25 PM EDT [facility] NOTE: Presumptive Positive indicates a n onnegative test result by immunoassay screen. It is a preliminary result. [facility] recommends that a Presumptive Positive result be confirmed by an additional, more specific test such as mass spectrometry NOTE: Presumptive Positive indicates a n onnegative test result by immunoassay screen. It is a preliminary result. [facility] recommends that a Presumptive Positive result be confirmed by an additional, more specific test such as mass spectrometry NOTE: Presumptive Positive indicates a n onnegative test result by immunoassay screen. It is a preliminary result. [facility] recommends that a Presumptive Positive result be confirmed by an additional, more specific test such as mass spectrometry NOTE: Presumptive Positive indicates a n onnegative test result by immunoassay screen. It is a preliminary result. [facility] recommends that a Presumptive Positive result be confirmed by an additional, more specific test such as mass spectrometry NOTE: Presumptive Positive indicates a n onnegative test result by immunoassay screen. It is a preliminary result. [facility] recommends that a Presumptive Positive result be confirmed by an additional, more specific test such as mass spectrometry NOTE: Presumptive Positive indicates a n onnegative test result by immunoassay screen. It is a preliminary result. [facility] recommends that a Presumptive Positive result be confirmed by an additional, more specific test such as mass spectrometry NOTE: Presumptive Positive indicates a n onnegative test result by immunoassay screen. It is a preliminary result. [facility] recommends that a Presumptive Positive result be confirmed by an additional, more specific test such as mass spectrometry Name Value Range Interpretation Code Description Data Zoie rce(s) Supporting Document(s) Methadone -24.00NegativeNegative ng/mL 300.00 ng/mL [facility] ID Date Data Source [id number] 06/11/2020 04:40:25 PM EDT [facility] NOTE: Presumptive Positive indicates a n onnegative test result by immunoassay screen. It is a preliminary result. [facility] recommends that a Presumptive Positive result be confirmed by an additional, more specific test such as mass spectrometry NOTE: Presumptive Positive indicates a n onnegative test result by immunoassay screen. It is a preliminary result. [facility] recommends that a Presumptive Positive result be confirmed by an additional, more specific test such as mass spectrometry NOTE: Presumptive Positive indicates a n onnegative test result by immunoassay screen. It is a preliminary result. [facility] recommends that a Presumptive Positive result be confirmed by an additional, more specific test such as mass spectrometry NOTE: Presumptive Positive indicates a n onnegative test result by immunoassay screen. It is a preliminary result. [facility] recommends that a Presumptive Positive result be confirmed by an additional, more specific test such as mass spectrometry NOTE: Presumptive Positive indicates a n onnegative test result by immunoassay screen. It is a preliminary result. [facility] recommends that a Presumptive Positive result be confirmed by an additional, more specific test such as mass spectrometry NOTE: Presumptive Positive indicates a n onnegative test result by immunoassay screen. It is a preliminary result. [facility] recommends that a Presumptive Positive result be confirmed by an additional, more specific test such as mass spectrometry NOTE: Presumptive Positive indicates a n onnegative test result by immunoassay screen. It is a preliminary result. [facility] recommends that a Presumptive Positive result be confirmed by an additional, more specific test such as mass spectrometry Name Value Range Interpretation Code Description Data Zoie rce(s) Supporting Document(s) Opiates 15.00NegativeNegative ng/mL 300.00 ng/mL [facility] ID Date Data Source [id number] 06/11/2020 04:40:25 PM EDT [facility] NOTE: Presumptive Positive indicates a n onnegative test result by immunoassay screen. It is a preliminary result. [facility] recommends that a Presumptive Positive result be confirmed by an additional, more specific test such as mass spectrometry NOTE: Presumptive Positive indicates a n onnegative test result by immunoassay screen. It is a preliminary result. [facility] recommends that a Presumptive Positive result be confirmed by an additional, more specific test such as mass spectrometry NOTE: Presumptive Positive indicates a n onnegative test result by immunoassay screen. It is a preliminary result. [facility] recommends that a Presumptive Positive result be confirmed by an additional, more specific test such as mass spectrometry NOTE: Presumptive Positive indicates a n onnegative test result by immunoassay screen. It is a preliminary result. [facility] recommends that a Presumptive Positive result be confirmed by an additional, more specific test such as mass spectrometry NOTE: Presumptive Positive indicates a n onnegative test result by immunoassay screen. It is a preliminary result. [facility] recommends that a Presumptive Positive result be confirmed by an additional, more specific test such as mass spectrometry NOTE: Presumptive Positive indicates a n onnegative test result by immunoassay screen. It is a preliminary result. [facility] recommends that a Presumptive Positive result be confirmed by an additional, more specific test such as mass spectrometry NOTE: Presumptive Positive indicates a n onnegative test result by immunoassay screen. It is a preliminary result. [facility] recommends that a Presumptive Positive result be confirmed by an additional, more specific test such as mass spectrometry Name Value Range Interpretation Code Description Data Zoie rce(s) Supporting Document(s) Synthetic Opiates -18.00NegativeNegative ng/mL 100.00 ng/mL [facility] ID Date Data Source [id number] 06/11/2020 04:40:25 PM EDT [facility] NOTE: Presumptive Positive indicates a n onnegative test result by immunoassay screen. It is a preliminary result. [facility] recommends that a Presumptive Positive result be confirmed by an additional, more specific test such as mass spectrometry NOTE: Presumptive Positive indicates a n onnegative test result by immunoassay screen. It is a preliminary result. [facility] recommends that a Presumptive Positive result be confirmed by an additional, more specific test such as mass spectrometry NOTE: Presumptive Positive indicates a n onnegative test result by immunoassay screen. It is a preliminary result. [facility] recommends that a Presumptive Positive result be confirmed by an additional, more specific test such as mass spectrometry NOTE: Presumptive Positive indicates a n onnegative test result by immunoassay screen. It is a preliminary result. [facility] recommends that a Presumptive Positive result be confirmed by an additional, more specific test such as mass spectrometry NOTE: Presumptive Positive indicates a n onnegative test result by immunoassay screen. It is a preliminary result. [facility] recommends that a Presumptive Positive result be confirmed by an additional, more specific test such as mass spectrometry NOTE: Presumptive Positive indicates a n onnegative test result by immunoassay screen. It is a preliminary result. [facility] recommends that a Presumptive Positive result be confirmed by an additional, more specific test such as mass spectrometry NOTE: Presumptive Positive indicates a n onnegative test result by immunoassay screen. It is a preliminary result. [facility] recommends that a Presumptive Positive result be confirmed by an additional, more specific test such as mass spectrometry Name Value Range Interpretation Code Description Data Zoie rce(s) Supporting Document(s) Ethyl Glucuronide 255.00NegativeNegative ng/mL 500.00 ng/mL [facility] ID Date Data Source [id number] 06/11/2020 04:40:26 PM EDT [facility] NOTE: Presumptive Positive indicates a n onnegative test result by immunoassay screen. It is a preliminary result. [facility] recommends that a Presumptive Positive result be confirmed by an additional, more specific test such as mass spectrometry NOTE: Presumptive Positive indicates a n onnegative test result by immunoassay screen. It is a preliminary result. [facility] recommends that a Presumptive Positive result be confirmed by an additional, more specific test such as mass spectrometry NOTE: Presumptive Positive indicates a n onnegative test result by immunoassay screen. It is a preliminary result. [facility] recommends that a Presumptive Positive result be confirmed by an additional, more specific test such as mass spectrometry NOTE: Presumptive Positive indicates a n onnegative test result by immunoassay screen. It is a preliminary result. [facility] recommends that a Presumptive Positive result be confirmed by an additional, more specific test such as mass spectrometry NOTE: Presumptive Positive indicates a n onnegative test result by immunoassay screen. It is a preliminary result. [facility] recommends that a Presumptive Positive result be confirmed by an additional, more specific test such as mass spectrometry NOTE: Presumptive Positive indicates a n onnegative test result by immunoassay screen. It is a preliminary result. [facility] recommends that a Presumptive Positive result be confirmed by an additional, more specific test such as mass spectrometry NOTE: Presumptive Positive indicates a n onnegative test result by immunoassay screen. It is a preliminary result. [facility] recommends that a Presumptive Positive result be confirmed by an additional, more specific test such as mass spectrometry Name Value Range Interpretation Code Description Data Zoie rce(s) Supporting Document(s) Phencyclidine -5.20NegativeNegative ng/mL 25.00 ng/mL [facility] ID Date Data Source [id number] 06/11/2020 04:40:26 PM EDT [facility] NOTE: Presumptive Positive indicates a n onnegative test result by immunoassay screen. It is a preliminary result. [facility] recommends that a Presumptive Positive result be confirmed by an additional, more specific test such as mass spectrometry NOTE: Presumptive Positive indicates a n onnegative test result by immunoassay screen. It is a preliminary result. [facility] recommends that a Presumptive Positive result be confirmed by an additional, more specific test such as mass spectrometry NOTE: Presumptive Positive indicates a n onnegative test result by immunoassay screen. It is a preliminary result. [facility] recommends that a Presumptive Positive result be confirmed by an additional, more specific test such as mass spectrometry NOTE: Presumptive Positive indicates a n onnegative test result by immunoassay screen. It is a preliminary result. [facility] recommends that a Presumptive Positive result be confirmed by an additional, more specific test such as mass spectrometry NOTE: Presumptive Positive indicates a n onnegative test result by immunoassay screen. It is a preliminary result. [facility] recommends that a Presumptive Positive result be confirmed by an additional, more specific test such as mass spectrometry NOTE: Presumptive Positive indicates a n onnegative test result by immunoassay screen. It is a preliminary result. [facility] recommends that a Presumptive Positive result be confirmed by an additional, more specific test such as mass spectrometry NOTE: Presumptive Positive indicates a n onnegative test result by immunoassay screen. It is a preliminary result. [facility] recommends that a Presumptive Positive result be confirmed by an additional, more specific test such as mass spectrometry Name Value Range Interpretation Code Description Data Zoie rce(s) Supporting Document(s) Tramadol 1.00NegativeNegative ng/mL 200.00 ng/mL [facility] ID Date Data Source [id number] 06/11/2020 04:40:26 PM EDT [facility] NOTE: Presumptive Positive indicates a n onnegative test result by immunoassay screen. It is a preliminary result. [facility] recommends that a Presumptive Positive result be confirmed by an additional, more specific test such as mass spectrometry NOTE: Presumptive Positive indicates a n onnegative test result by immunoassay screen. It is a preliminary result. [facility] recommends that a Presumptive Positive result be confirmed by an additional, more specific test such as mass spectrometry NOTE: Presumptive Positive indicates a n onnegative test result by immunoassay screen. It is a preliminary result. [facility] recommends that a Presumptive Positive result be confirmed by an additional, more specific test such as mass spectrometry NOTE: Presumptive Positive indicates a n onnegative test result by immunoassay screen. It is a preliminary result. [facility] recommends that a Presumptive Positive result be confirmed by an additional, more specific test such as mass spectrometry NOTE: Presumptive Positive indicates a n onnegative test result by immunoassay screen. It is a preliminary result. [facility] recommends that a Presumptive Positive result be confirmed by an additional, more specific test such as mass spectrometry NOTE: Presumptive Positive indicates a n onnegative test result by immunoassay screen. It is a preliminary result. [facility] recommends that a Presumptive Positive result be confirmed by an additional, more specific test such as mass spectrometry NOTE: Presumptive Positive indicates a n onnegative test result by immunoassay screen. It is a preliminary result. [facility] recommends that a Presumptive Positive result be confirmed by an additional, more specific test such as mass spectrometry Name Value Range Interpretation Code Description Data Zoie rce(s) Supporting Document(s) Amphetamines 412.00NegativeNegative ng/mL 500.00 ng/mL [facility] ID Date Data Source [id number] 06/11/2020 04:40:26 PM EDT [facility] NOTE: Presumptive Positive indicates a n onnegative test result by immunoassay screen. It is a preliminary result. [facility] recommends that a Presumptive Positive result be confirmed by an additional, more specific test such as mass spectrometry NOTE: Presumptive Positive indicates a n onnegative test result by immunoassay screen. It is a preliminary result. [facility] recommends that a Presumptive Positive result be confirmed by an additional, more specific test such as mass spectrometry NOTE: Presumptive Positive indicates a n onnegative test result by immunoassay screen. It is a preliminary result. [facility] recommends that a Presumptive Positive result be confirmed by an additional, more specific test such as mass spectrometry NOTE: Presumptive Positive indicates a n onnegative test result by immunoassay screen. It is a preliminary result. [facility] recommends that a Presumptive Positive result be confirmed by an additional, more specific test such as mass spectrometry NOTE: Presumptive Positive indicates a n onnegative test result by immunoassay screen. It is a preliminary result. [facility] recommends that a Presumptive Positive result be confirmed by an additional, more specific test such as mass spectrometry NOTE: Presumptive Positive indicates a n onnegative test result by immunoassay screen. It is a preliminary result. [facility] recommends that a Presumptive Positive result be confirmed by an additional, more specific test such as mass spectrometry NOTE: Presumptive Positive indicates a n onnegative test result by immunoassay screen. It is a preliminary result. [facility] recommends that a Presumptive Positive result be confirmed by an additional, more specific test such as mass spectrometry Name Value Range Interpretation Code Description Data Zoie rce(s) Supporting Document(s) 6-MIGUEL 1.940NegativeNegative ng/mL 10.00 ng/mL [facility] ID Date Data Source [id number] 06/11/2020 04:40:26 PM EDT [facility] NOTE: Presumptive Positive indicates a n onnegative test result by immunoassay screen. It is a preliminary result. [facility] recommends that a Presumptive Positive result be confirmed by an additional, more specific test such as mass spectrometry NOTE: Presumptive Positive indicates a n onnegative test result by immunoassay screen. It is a preliminary result. [facility] recommends that a Presumptive Positive result be confirmed by an additional, more specific test such as mass spectrometry NOTE: Presumptive Positive indicates a n onnegative test result by immunoassay screen. It is a preliminary result. [facility] recommends that a Presumptive Positive result be confirmed by an additional, more specific test such as mass spectrometry NOTE: Presumptive Positive indicates a n onnegative test result by immunoassay screen. It is a preliminary result. [facility] recommends that a Presumptive Positive result be confirmed by an additional, more specific test such as mass spectrometry NOTE: Presumptive Positive indicates a n onnegative test result by immunoassay screen. It is a preliminary result. [facility] recommends that a Presumptive Positive result be confirmed by an additional, more specific test such as mass spectrometry NOTE: Presumptive Positive indicates a n onnegative test result by immunoassay screen. It is a preliminary result. [facility] recommends that a Presumptive Positive result be confirmed by an additional, more specific test such as mass spectrometry NOTE: Presumptive Positive indicates a n onnegative test result by immunoassay screen. It is a preliminary result. [facility] recommends that a Presumptive Positive result be confirmed by an additional, more specific test such as mass spectrometry Name Value Range Interpretation Code Description Data Zoie rce(s) Supporting Document(s) Buprenorphine 250Positive - ConsistentPOSITIVE> ng/mL 5.00 n g/mL [facility] Norbuprenorphine 266.710Positive - ConsistentPOSITI VE ng/mL 10.00 ng/mL [facility] Naloxone 0.000Negative - InconsistentNegative ng /mL 25.00 ng/mL Abnormal (applies to non-numeric results) [facility] ID Date Data Source [id number] 06/11/2020 04:40:28 PM EDT [facility] NOTE: Presumptive Positive indicates a n onnegative test result by immunoassay screen. It is a preliminary result. [facility] recommends that a Presumptive Positive result be confirmed by an additional, more specific test such as mass spectrometry NOTE: Presumptive Positive indicates a n onnegative test result by immunoassay screen. It is a preliminary result. [facility] recommends that a Presumptive Positive result be confirmed by an additional, more specific test such as mass spectrometry NOTE: Presumptive Positive indicates a n onnegative test result by immunoassay screen. It is a preliminary result. [facility] recommends that a Presumptive Positive result be confirmed by an additional, more specific test such as mass spectrometry NOTE: Presumptive Positive indicates a n onnegative test result by immunoassay screen. It is a preliminary result. [facility] recommends that a Presumptive Positive result be confirmed by an additional, more specific test such as mass spectrometry NOTE: Presumptive Positive indicates a n onnegative test result by immunoassay screen. It is a preliminary result. [facility] recommends that a Presumptive Positive result be confirmed by an additional, more specific test such as mass spectrometry NOTE: Presumptive Positive indicates a n onnegative test result by immunoassay screen. It is a preliminary result. [facility] recommends that a Presumptive Positive result be confirmed by an additional, more specific test such as mass spectrometry NOTE: Presumptive Positive indicates a n onnegative test result by immunoassay screen. It is a preliminary result. [facility] recommends that a Presumptive Positive result be confirmed by an additional, more specific test such as mass spectrometry Name Value Range Interpretation Code Description Data Zoie rce(s) Supporting Document(s) Norfentanyl 50Positive - InconsistentPOSITIVE> ng/m L 1.00 ng/mL Abnormal (applies to non-numeric results) [facility] Fentanyl 45.060Positive - InconsistentPOSITIVE n g/mL 1.00 ng/mL Abnormal (applies to non-numeric results) [facility] Carfentanil 0.000NegativeNegative ng/mL 1.00 ng/mL [facility] Norcarfentanil 0.100NegativeNegative ng/mL 1.00 ng/mL [facility] Sufentanil 0.040NegativeNegative ng/mL 1.00 ng/mL [facility] ID Date Data Source [id number] 06/11/2020 04:40:30 PM EDT [facility] NOTE: Presumptive Positive indicates a n onnegative test result by immunoassay screen. It is a preliminary result. [facility] recommends that a Presumptive Positive result be confirmed by an additional, more specific test such as mass spectrometry NOTE: Presumptive Positive indicates a n onnegative test result by immunoassay screen. It is a preliminary result. [facility] recommends that a Presumptive Positive result be confirmed by an additional, more specific test such as mass spectrometry NOTE: Presumptive Positive indicates a n onnegative test result by immunoassay screen. It is a preliminary result. [facility] recommends that a Presumptive Positive result be confirmed by an additional, more specific test such as mass spectrometry NOTE: Presumptive Positive indicates a n onnegative test result by immunoassay screen. It is a preliminary result. [facility] recommends that a Presumptive Positive result be confirmed by an additional, more specific test such as mass spectrometry NOTE: Presumptive Positive indicates a n onnegative test result by immunoassay screen. It is a preliminary result. [facility] recommends that a Presumptive Positive result be confirmed by an additional, more specific test such as mass spectrometry NOTE: Presumptive Positive indicates a n onnegative test result by immunoassay screen. It is a preliminary result. [facility] recommends that a Presumptive Positive result be confirmed by an additional, more specific test such as mass spectrometry NOTE: Presumptive Positive indicates a n onnegative test result by immunoassay screen. It is a preliminary result. [facility] recommends that a Presumptive Positive result be confirmed by an additional, more specific test such as mass spectrometry Name Value Range Interpretation Code Description Data Zoie rce(s) Supporting Document(s) Oxycodone 2.210NegativeNegative ng/mL 50.00 ng/mL [facility] Oxymorphone 1.610NegativeNegative ng/mL 50.00 ng/mL [facility] Noroxycodone 6.250NegativeNegative ng/mL 50.00 ng/mL [facility] ID Date Data Source [id number] 06/11/2020 04:40:31 PM EDT [facility] NOTE: Presumptive Positive indicates a n onnegative test result by immunoassay screen. It is a preliminary result. [facility] recommends that a Presumptive Positive result be confirmed by an additional, more specific test such as mass spectrometry NOTE: Presumptive Positive indicates a n onnegative test result by immunoassay screen. It is a preliminary result. [facility] recommends that a Presumptive Positive result be confirmed by an additional, more specific test such as mass spectrometry NOTE: Presumptive Positive indicates a n onnegative test result by immunoassay screen. It is a preliminary result. [facility] recommends that a Presumptive Positive result be confirmed by an additional, more specific test such as mass spectrometry NOTE: Presumptive Positive indicates a n onnegative test result by immunoassay screen. It is a preliminary result. [facility] recommends that a Presumptive Positive result be confirmed by an additional, more specific test such as mass spectrometry NOTE: Presumptive Positive indicates a n onnegative test result by immunoassay screen. It is a preliminary result. [facility] recommends that a Presumptive Positive result be confirmed by an additional, more specific test such as mass spectrometry NOTE: Presumptive Positive indicates a n onnegative test result by immunoassay screen. It is a preliminary result. [facility] recommends that a Presumptive Positive result be confirmed by an additional, more specific test such as mass spectrometry NOTE: Presumptive Positive indicates a n onnegative test result by immunoassay screen. It is a preliminary result. [facility] recommends that a Presumptive Positive result be confirmed by an additional, more specific test such as mass spectrometry Name Value Range Interpretation Code Description Data Zoie rce(s) Supporting Document(s) Benzoylecgonine 1.400NegativeNegative ng/mL 50.00 ng/mL [facility] ID Date Data Source [id number] 06/11/2020 04:40:31 PM EDT [facility] NOTE: Presumptive Positive indicates a n onnegative test result by immunoassay screen. It is a preliminary result. [facility] recommends that a Presumptive Positive result be confirmed by an additional, more specific test such as mass spectrometry NOTE: Presumptive Positive indicates a n onnegative test result by immunoassay screen. It is a preliminary result. [facility] recommends that a Presumptive Positive result be confirmed by an additional, more specific test such as mass spectrometry NOTE: Presumptive Positive indicates a n onnegative test result by immunoassay screen. It is a preliminary result. [facility] recommends that a Presumptive Positive result be confirmed by an additional, more specific test such as mass spectrometry NOTE: Presumptive Positive indicates a n onnegative test result by immunoassay screen. It is a preliminary result. [facility] recommends that a Presumptive Positive result be confirmed by an additional, more specific test such as mass spectrometry NOTE: Presumptive Positive indicates a n onnegative test result by immunoassay screen. It is a preliminary result. [facility] recommends that a Presumptive Positive result be confirmed by an additional, more specific test such as mass spectrometry NOTE: Presumptive Positive indicates a n onnegative test result by immunoassay screen. It is a preliminary result. [facility] recommends that a Presumptive Positive result be confirmed by an additional, more specific test such as mass spectrometry NOTE: Presumptive Positive indicates a n onnegative test result by immunoassay screen. It is a preliminary result. [facility] recommends that a Presumptive Positive result be confirmed by an additional, more specific test such as mass spectrometry Name Value Range Interpretation Code Description Data Zoie rce(s) Supporting Document(s) Methamphetamine 6.320NegativeNegative ng/mL 50.00 ng/mL [facility] Amphetamine 0.050NegativeNegative ng/mL 50.00 ng/mL [facility] ID Date Data Source [id number] 06/11/2020 04:40:32 PM EDT [facility] NOTE: Presumptive Positive indicates a n onnegative test result by immunoassay screen. It is a preliminary result. [facility] recommends that a Presumptive Positive result be confirmed by an additional, more specific test such as mass spectrometry NOTE: Presumptive Positive indicates a n onnegative test result by immunoassay screen. It is a preliminary result. [facility] recommends that a Presumptive Positive result be confirmed by an additional, more specific test such as mass spectrometry NOTE: Presumptive Positive indicates a n onnegative test result by immunoassay screen. It is a preliminary result. [facility] recommends that a Presumptive Positive result be confirmed by an additional, more specific test such as mass spectrometry NOTE: Presumptive Positive indicates a n onnegative test result by immunoassay screen. It is a preliminary result. [facility] recommends that a Presumptive Positive result be confirmed by an additional, more specific test such as mass spectrometry NOTE: Presumptive Positive indicates a n onnegative test result by immunoassay screen. It is a preliminary result. [facility] recommends that a Presumptive Positive result be confirmed by an additional, more specific test such as mass spectrometry NOTE: Presumptive Positive indicates a n onnegative test result by immunoassay screen. It is a preliminary result. [facility] recommends that a Presumptive Positive result be confirmed by an additional, more specific test such as mass spectrometry NOTE: Presumptive Positive indicates a n onnegative test result by immunoassay screen. It is a preliminary result. [facility] recommends that a Presumptive Positive result be confirmed by an additional, more specific test such as mass spectrometry Name Value Range Interpretation Code Description Data [facility](s) Supporting Document(s) MDMA 6.040NegativeNegative ng/mL 50.00 ng/mL [facility] MDEA 4.850NegativeNegative ng/mL 50.00 ng/mL [facility] MDA 4.580NegativeNegative ng/mL 50.00 ng/mL [facility] ID Date Data Source [id number] 06/11/2020 04:40:32 PM EDT [facility] NOTE: Presumptive Positive indicates a n onnegative test result by immunoassay screen. It is a preliminary result. [facility] recommends that a Presumptive Positive result be confirmed by an additional, more specific test such as mass spectrometry NOTE: Presumptive Positive indicates a n onnegative test result by immunoassay screen. It is a preliminary result. [facility] recommends that a Presumptive Positive result be confirmed by an additional, more specific test such as mass spectrometry NOTE: Presumptive Positive indicates a n onnegative test result by immunoassay screen. It is a preliminary result. [facility] recommends that a Presumptive Positive result be confirmed by an additional, more specific test such as mass spectrometry NOTE: Presumptive Positive indicates a n onnegative test result by immunoassay screen. It is a preliminary result. [facility] recommends that a Presumptive Positive result be confirmed by an additional, more specific test such as mass spectrometry NOTE: Presumptive Positive indicates a n onnegative test result by immunoassay screen. It is a preliminary result. [facility] recommends that a Presumptive Positive result be confirmed by an additional, more specific test such as mass spectrometry NOTE: Presumptive Positive indicates a n onnegative test result by immunoassay screen. It is a preliminary result. [facility] recommends that a Presumptive Positive result be confirmed by an additional, more specific test such as mass spectrometry NOTE: Presumptive Positive indicates a n onnegative test result by immunoassay screen. It is a preliminary result. [facility] recommends that a Presumptive Positive result be confirmed by an additional, more specific test such as mass spectrometry Name Value Range Interpretation Code Description Data Zoie rce(s) Supporting Document(s) THC-COOH 2.920NegativeNegative ng/mL 15.00 ng/mL [facility] ID Date Data Source [id number] 06/11/2020 04:40:33 PM EDT [facility] NOTE: Presumptive Positive indicates a n onnegative test result by immunoassay screen. It is a preliminary result. [facility] recommends that a Presumptive Positive result be confirmed by an additional, more specific test such as mass spectrometry NOTE: Presumptive Positive indicates a n onnegative test result by immunoassay screen. It is a preliminary result. [facility] recommends that a Presumptive Positive result be confirmed by an additional, more specific test such as mass spectrometry NOTE: Presumptive Positive indicates a n onnegative test result by immunoassay screen. It is a preliminary result. [facility] recommends that a Presumptive Positive result be confirmed by an additional, more specific test such as mass spectrometry NOTE: Presumptive Positive indicates a n onnegative test result by immunoassay screen. It is a preliminary result. [facility] recommends that a Presumptive Positive result be confirmed by an additional, more specific test such as mass spectrometry NOTE: Presumptive Positive indicates a n onnegative test result by immunoassay screen. It is a preliminary result. [facility] recommends that a Presumptive Positive result be confirmed by an additional, more specific test such as mass spectrometry NOTE: Presumptive Positive indicates a n onnegative test result by immunoassay screen. It is a preliminary result. [facility] recommends that a Presumptive Positive result be confirmed by an additional, more specific test such as mass spectrometry NOTE: Presumptive Positive indicates a n onnegative test result by immunoassay screen. It is a preliminary result. [facility] recommends that a Presumptive Positive result be confirmed by an additional, more specific test such as mass spectrometry Name Value Range Interpretation Code Description Data Zoie rce(s) Supporting Document(s) Temazepam 8.140NegativeNegative ng/mL 50.00 ng/mL [facility] Lorazepam 7.190NegativeNegative ng/mL 50.00 ng/mL [facility] alpha-Hydroxyalprazolam 0.000NegativeNegative ng/mL 50.00 ng /mL [facility] 7-Aminoclonazepam 0.980NegativeNegative ng/mL 50.00 ng/mL [facility] Oxazepam 11.070NegativeNegative ng/mL 50.00 ng/mL [facility] Nordiazepam 5.310NegativeNegative ng/mL 50.00 ng/mL [facility] ID Date Data Source [id number] 06/11/2020 04:40:35 PM EDT [facility] NOTE: Presumptive Positive indicates a n onnegative test result by immunoassay screen. It is a preliminary result. [facility] recommends that a Presumptive Positive result be confirmed by an additional, more specific test such as mass spectrometry NOTE: Presumptive Positive indicates a n onnegative test result by immunoassay screen. It is a preliminary result. [facility] recommends that a Presumptive Positive result be confirmed by an additional, more specific test such as mass spectrometry NOTE: Presumptive Positive indicates a n onnegative test result by immunoassay screen. It is a preliminary result. [facility] recommends that a Presumptive Positive result be confirmed by an additional, more specific test such as mass spectrometry NOTE: Presumptive Positive indicates a n onnegative test result by immunoassay screen. It is a preliminary result. [facility] recommends that a Presumptive Positive result be confirmed by an additional, more specific test such as mass spectrometry NOTE: Presumptive Positive indicates a n onnegative test result by immunoassay screen. It is a preliminary result. [facility] recommends that a Presumptive Positive result be confirmed by an additional, more specific test such as mass spectrometry NOTE: Presumptive Positive indicates a n onnegative test result by immunoassay screen. It is a preliminary result. [facility] recommends that a Presumptive Positive result be confirmed by an additional, more specific test such as mass spectrometry NOTE: Presumptive Positive indicates a n onnegative test result by immunoassay screen. It is a preliminary result. [facility] recommends that a Presumptive Positive result be confirmed by an additional, more specific test such as mass spectrometry Name Value Range Interpretation Code Description Data Zoie rce(s) Supporting Document(s) Ethyl Sulfate 40.690NegativeNegative ng/mL 500.00 ng/mL [facility] Ethyl Glucuronide 79.080NegativeNegative ng/mL 500.00 ng/mL [facility] ID Date Data Source [id number] 06/11/2020 04:40:36 PM EDT [facility] NOTE: Presumptive Positive indicates a n onnegative test result by immunoassay screen. It is a preliminary result. [facility] recommends that a Presumptive Positive result be confirmed by an additional, more specific test such as mass spectrometry NOTE: Presumptive Positive indicates a n onnegative test result by immunoassay screen. It is a preliminary result. [facility] recommends that a Presumptive Positive result be confirmed by an additional, more specific test such as mass spectrometry NOTE: Presumptive Positive indicates a n onnegative test result by immunoassay screen. It is a preliminary result. [facility] recommends that a Presumptive Positive result be confirmed by an additional, more specific test such as mass spectrometry NOTE: Presumptive Positive indicates a n onnegative test result by immunoassay screen. It is a preliminary result. [facility] recommends that a Presumptive Positive result be confirmed by an additional, more specific test such as mass spectrometry NOTE: Presumptive Positive indicates a n onnegative test result by immunoassay screen. It is a preliminary result. [facility] recommends that a Presumptive Positive result be confirmed by an additional, more specific test such as mass spectrometry NOTE: Presumptive Positive indicates a n onnegative test result by immunoassay screen. It is a preliminary result. [facility] recommends that a Presumptive Positive result be confirmed by an additional, more specific test such as mass spectrometry NOTE: Presumptive Positive indicates a n onnegative test result by immunoassay screen. It is a preliminary result. [facility] recommends that a Presumptive Positive result be confirmed by an additional, more specific test such as mass spectrometry Name Value Range Interpretation Code Description Data Zoie rce(s) Supporting Document(s) Pregabalin 54.990NegativeNegative ng/mL 500.00 ng/mL [facility] Gabapentin 118.750NegativeNegative ng/mL 500.00 ng/mL [facility] ID Date Data Source [id number] 06/11/2020 04:40:36 PM EDT [facility] NOTE: Presumptive Positive indicates a n onnegative test result by immunoassay screen. It is a preliminary result. [facility] recommends that a Presumptive Positive result be confirmed by an additional, more specific test such as mass spectrometry NOTE: Presumptive Positive indicates a n onnegative test result by immunoassay screen. It is a preliminary result. [facility] recommends that a Presumptive Positive result be confirmed by an additional, more specific test such as mass spectrometry NOTE: Presumptive Positive indicates a n onnegative test result by immunoassay screen. It is a preliminary result. [facility] recommends that a Presumptive Positive result be confirmed by an additional, more specific test such as mass spectrometry NOTE: Presumptive Positive indicates a n onnegative test result by immunoassay screen. It is a preliminary result. [facility] recommends that a Presumptive Positive result be confirmed by an additional, more specific test such as mass spectrometry NOTE: Presumptive Positive indicates a n onnegative test result by immunoassay screen. It is a preliminary result. [facility] recommends that a Presumptive Positive result be confirmed by an additional, more specific test such as mass spectrometry NOTE: Presumptive Positive indicates a n onnegative test result by immunoassay screen. It is a preliminary result. [facility] recommends that a Presumptive Positive result be confirmed by an additional, more specific test such as mass spectrometry NOTE: Presumptive Positive indicates a n onnegative test result by immunoassay screen. It is a preliminary result. [facility] recommends that a Presumptive Positive result be confirmed by an additional, more specific test such as mass spectrometry Name Value Range Interpretation Code Description Data Zoie rce(s) Supporting Document(s) 5-Fluoro AMB 0.010NegativeNegative ng/mL 0.20 ng/mL [facility] 8-swarbv-BIF metabolite 7 0.030NegativeNegative ng/mL 0.40 n g/mL [facility] 0-mealex-VVII-PICA metabolite 7 0.000NegativeNegative n g/mL 0.20 ng/mL [facility] 0-Htlcvt-RH-22 3-Carboxyindole metabolite 0.000Negative *Negative ng/mL 1.00 ng/mL [facility] 2G-YINE-QPYSOF 0.000NegativeNegative ng/mL 0.20 ng/mL [facility] AB-CHMINACA 0.000NegativeNegative ng/mL 0.20 ng/mL [facility] AB-CHMINACA metabolite M2 0.020NegativeNegative ng/mL 0.20 n g/mL [facility] AB-FUBINACA 0.000NegativeNegative ng/mL 1.00 ng/mL [facility] AB-FUBINACA metabolite 3 0.000NegativeNegative ng/mL 0.20 ng /mL [facility] AB-PINACA 0.000NegativeNegative ng/mL 1.00 ng/mL [facility] AB-PINACA 5-Pentanoic acid metabolite 0.000NegativeNeg ative ng/mL 1.00 ng/mL [facility] ADB-FUBINACA 0.010NegativeNegative ng/mL 1.00 ng/mL [facility] AKB48 0.000NegativeNegative ng/mL 0.20 ng/mL [facility] UN1969 0.010NegativeNegative ng/mL 0.20 ng/mL [facility] BB-22 3-carboxyindole metabolite 0.000NegativeNegative ng/mL 2.00 ng/mL [facility] JWH-018 0.010NegativeNegative ng/mL 0.20 ng/mL [facility] JWH-018 5-Pentanoic acid metabolite 0.000NegativeNegat joan ng/mL 0.20 ng/mL [facility] JWH-073 0.000NegativeNegative ng/mL 0.20 ng/mL [facility] MAB-CHMINACA 0.000NegativeNegative ng/mL 1.00 ng/mL [facility] MAB-CHMINACA metabolite M2 0.050NegativeNegative ng/mL 0.40 ng/mL [facility] MDMB-FUBICA metabolite 3 0.010NegativeNegative ng/mL 0.20 ng /mL [facility] MDMB-FUBINACA 0.000NegativeNegative ng/mL 0.20 ng/mL [facility] MDMB-FUBINACA metabolite M1 0.030NegativeNegative ng/mL 0.20 ng/mL [facility] MMB-CHMICA 0.000NegativeNegative ng/mL 0.20 ng/mL [facility] MMB-FUBINACA 0.000NegativeNegative ng/mL 0.20 ng/mL [facility] PB-22 3-carboxyindole metabolite 0.060NegativeNegative ng/mL 1.00 ng/mL [facility] UR-144 0.000NegativeNegative ng/mL 0.20 ng/mL [facility] UR-144 5-Pentanoic acid metabolite 0.000NegativeNegati ve ng/mL 1.00 ng/mL [facility] XLR-11 0.000NegativeNegative ng/mL 0.20 ng/mL [facility] ID Date Data Source [id number] 06/04/2020 04:00:00 AM EDT [facility] ([facility]) Name Value Range Interpretation Code Description Data Zoie rce(s) Supporting Document(s) pH of Lower respiratory specimen 5.1NORMALNORMAL [facility] ([facility]) Creatinine [Interpretation] in Urine 37.5NORMALNORMAL [facility] ([facility]) Oxidants [Presence] in Urine -10.00NegativeNegative [facility] ([facility]) Validity Result VALIDVALIDVALID [facility] ([facility]) Buprenorphine [Presence] in Blood by Screen method 72. 070Positive - ConsistentPOSITIVE [facility] ([facility]) Norbuprenorphine [Mass/mass] in Meconium by Confirmato ry method 62.240Positive - ConsistentPOSITIVE [facility] ([facility]) Naloxone [Mass/volume] in Urine by Confirmatory method 0.000Negative - InconsistentNegative [facility] ([facility]) ID Date Data Source [id number] 06/06/2020 05:27:55 PM EDT [facility] Name Value Range Interpretation Code Description Data Zoie rce(s) Supporting Document(s) Creatinine 37.5NORMALNORMAL mg/dL 20.0-300.0 mg/dL [facility] pH 5.1NORMALNORMAL 3.5-9.2 [facility] Oxidants -10.00NegativeNegative mcg/mL 200.00 mcg/mL [facility] Validity Result VALIDVALIDVALID [facility] ID Date Data Source [id number] 06/06/2020 05:27:57 PM EDT [facility] Name Value Range Interpretation Code Description Data Zoie rce(s) Supporting Document(s) Buprenorphine 72.070Positive - ConsistentPOSITIVE ng/mL 5.00 ng/mL [facility] Norbuprenorphine 62.240Positive - ConsistentPOSITIVE ng /mL 10.00 ng/mL [facility] Naloxone 0.000Negative - InconsistentNegative ng /mL 25.00 ng/mL Abnormal (applies to non-numeric results) [facility] ID Date Data Source [id number] 06/03/2020 04:00:00 AM EDT [facility] ([facility]) Name Value Range Interpretation Code Description Data Zoie rce(s) Supporting Document(s) Methamphetamine [Mass/mass] in Hair -21.00NegativeNegative [facility] ([facility]) Methadone [Mass/volume] in Blood -24.00NegativeNegative [facility] ([facility]) Synthetic Opiates -13.00NegativeNegative [facility] ([facility]) Cocaine Metabolites -13.00NegativeNegative [facility] ([facility]) Opiates [Presence] in Unknown substance by Confirmator y method -23.00NegativeNegative [facility] ([facility]) Phencyclidine [Presence] in Unknown substance by Confi rmatory method -5.00NegativeNegative [facility] ( [facility]) Ethyl Alcohol 0.00NegativeNegative [facility] ([facility]) Cannabinoids [Presence] in Unknown substance by Confir matory method 3.00NegativeNegative [facility] ([facility]) Tramadol [Presence] in Blood by Screen method -61.00Negative* Negative [facility] ([facility]) Buprenorphine [Presence] in Blood by Screen method 0.0 00Negative - InconsistentNegative [facility] ([facility]) Amphetamines [Presence] in Stool 2.00NegativeNegative [facility] ([facility]) 6-MIGUEL 0.000NegativeNegative [facility] ([facility]) Naloxone [Mass/volume] in Urine by Confirmatory method 0.000Negative - InconsistentNegative [facility] ([facility]) Norbuprenorphine [Mass/mass] in Meconium by Confirmato ry method 0.000Negative - InconsistentNegative [facility] ([facility]) Fentanyl [Z-score] in Urine 3.200Positive - InconsistentPOSITIV E [facility] ([facility]) MDA 0.000NegativeNegative [facility] ([facility]) Norfentanyl [Mass/volume] in Serum, Plasma or Blood by Confirmatory method 0.000NegativeNegative [facility] ( [facility]) MDEA 0.000NegativeNegative [facility] ([facility]) Clonazepam [Mass/mass] in Meconium by Confirmatory met hod 0.000NegativeNegative [facility] ( [facility]) Alprazolam [Mass/volume] in Saliva (oral fluid) by Con firmatory method 0.000NegativeNegative [facility] ( [facility]) Oxazepam [Moles/volume] in Unspecified specimen 0.000Nega tiveNegative [facility] ([facility]) Lorazepam [Moles/volume] in Unspecified specimen 0.000Neg ativeNegative [facility] ([facility]) Temazepam [Moles/volume] in Unspecified specimen 0.000Neg ativeNegative [facility] ([facility]) Gabapentin [Mass/volume] in Urine by Confirmatory meth od 0.000NegativeNegative [facility] ( [facility]) Diazepam [Moles/volume] in Unspecified specimen 0.000Nega tiveNegative [facility] ([facility]) Pregabalin [Presence] in Urine by Screen method 0.000Nega tiveNegative [facility] ([facility]) ID Date Data Source [id number] 06/10/2020 04:46:46 PM EDT [facility] NOTE: Presumptive Positive indicates a n onnegative test result by immunoassay screen. It is a preliminary result. [facility] recommends that a Presumptive Positive result be confirmed by an additional, more specific test such as mass spectrometry NOTE: Presumptive Positive indicates a n onnegative test result by immunoassay screen. It is a preliminary result. [facility] recommends that a Presumptive Positive result be confirmed by an additional, more specific test such as mass spectrometry NOTE: Presumptive Positive indicates a n onnegative test result by immunoassay screen. It is a preliminary result. [facility] recommends that a Presumptive Positive result be confirmed by an additional, more specific test such as mass spectrometry NOTE: Presumptive Positive indicates a n onnegative test result by immunoassay screen. It is a preliminary result. [facility] recommends that a Presumptive Positive result be confirmed by an additional, more specific test such as mass spectrometry NOTE: Presumptive Positive indicates a n onnegative test result by immunoassay screen. It is a preliminary result. [facility] recommends that a Presumptive Positive result be confirmed by an additional, more specific test such as mass spectrometry NOTE: Presumptive Positive indicates a n onnegative test result by immunoassay screen. It is a preliminary result. [facility] recommends that a Presumptive Positive result be confirmed by an additional, more specific test such as mass spectrometry NOTE: Presumptive Positive indicates a n onnegative test result by immunoassay screen. It is a preliminary result. [facility] recommends that a Presumptive Positive result be confirmed by an additional, more specific test such as mass spectrometry NOTE: Presumptive Positive indicates a n onnegative test result by immunoassay screen. It is a preliminary result. [facility] recommends that a Presumptive Positive result be confirmed by an additional, more specific test such as mass spectrometry NOTE: Presumptive Positive indicates a n onnegative test result by immunoassay screen. It is a preliminary result. [facility] recommends that a Presumptive Positive result be confirmed by an additional, more specific test such as mass spectrometry NOTE: Presumptive Positive indicates a n onnegative test result by immunoassay screen. It is a preliminary result. [facility] recommends that a Presumptive Positive result be confirmed by an additional, more specific test such as mass spectrometry Name Value Range Interpretation Code Description Data Zoie rce(s) Supporting Document(s) Methamphetamine -21.00NegativeNegative ng/mL 50.00 ng/mL [facility] ID Date Data Source [id number] 06/10/2020 04:46:46 PM EDT [facility] NOTE: Presumptive Positive indicates a n onnegative test result by immunoassay screen. It is a preliminary result. [facility] recommends that a Presumptive Positive result be confirmed by an additional, more specific test such as mass spectrometry NOTE: Presumptive Positive indicates a n onnegative test result by immunoassay screen. It is a preliminary result. [facility] recommends that a Presumptive Positive result be confirmed by an additional, more specific test such as mass spectrometry NOTE: Presumptive Positive indicates a n onnegative test result by immunoassay screen. It is a preliminary result. [facility] recommends that a Presumptive Positive result be confirmed by an additional, more specific test such as mass spectrometry NOTE: Presumptive Positive indicates a n onnegative test result by immunoassay screen. It is a preliminary result. [facility] recommends that a Presumptive Positive result be confirmed by an additional, more specific test such as mass spectrometry NOTE: Presumptive Positive indicates a n onnegative test result by immunoassay screen. It is a preliminary result. [facility] recommends that a Presumptive Positive result be confirmed by an additional, more specific test such as mass spectrometry NOTE: Presumptive Positive indicates a n onnegative test result by immunoassay screen. It is a preliminary result. [facility] recommends that a Presumptive Positive result be confirmed by an additional, more specific test such as mass spectrometry NOTE: Presumptive Positive indicates a n onnegative test result by immunoassay screen. It is a preliminary result. [facility] recommends that a Presumptive Positive result be confirmed by an additional, more specific test such as mass spectrometry NOTE: Presumptive Positive indicates a n onnegative test result by immunoassay screen. It is a preliminary result. [facility] recommends that a Presumptive Positive result be confirmed by an additional, more specific test such as mass spectrometry NOTE: Presumptive Positive indicates a n onnegative test result by immunoassay screen. It is a preliminary result. [facility] recommends that a Presumptive Positive result be confirmed by an additional, more specific test such as mass spectrometry NOTE: Presumptive Positive indicates a n onnegative test result by immunoassay screen. It is a preliminary result. [facility] recommends that a Presumptive Positive result be confirmed by an additional, more specific test such as mass spectrometry Name Value Range Interpretation Code Description Data Zoie rce(s) Supporting Document(s) Methadone -24.00NegativeNegative ng/mL 50.00 ng/mL [facility] ID Date Data Source [id number] 06/10/2020 04:46:46 PM EDT [facility] NOTE: Presumptive Positive indicates a n onnegative test result by immunoassay screen. It is a preliminary result. [facility] recommends that a Presumptive Positive result be confirmed by an additional, more specific test such as mass spectrometry NOTE: Presumptive Positive indicates a n onnegative test result by immunoassay screen. It is a preliminary result. [facility] recommends that a Presumptive Positive result be confirmed by an additional, more specific test such as mass spectrometry NOTE: Presumptive Positive indicates a n onnegative test result by immunoassay screen. It is a preliminary result. [facility] recommends that a Presumptive Positive result be confirmed by an additional, more specific test such as mass spectrometry NOTE: Presumptive Positive indicates a n onnegative test result by immunoassay screen. It is a preliminary result. [facility] recommends that a Presumptive Positive result be confirmed by an additional, more specific test such as mass spectrometry NOTE: Presumptive Positive indicates a n onnegative test result by immunoassay screen. It is a preliminary result. [facility] recommends that a Presumptive Positive result be confirmed by an additional, more specific test such as mass spectrometry NOTE: Presumptive Positive indicates a n onnegative test result by immunoassay screen. It is a preliminary result. [facility] recommends that a Presumptive Positive result be confirmed by an additional, more specific test such as mass spectrometry NOTE: Presumptive Positive indicates a n onnegative test result by immunoassay screen. It is a preliminary result. [facility] recommends that a Presumptive Positive result be confirmed by an additional, more specific test such as mass spectrometry NOTE: Presumptive Positive indicates a n onnegative test result by immunoassay screen. It is a preliminary result. [facility] recommends that a Presumptive Positive result be confirmed by an additional, more specific test such as mass spectrometry NOTE: Presumptive Positive indicates a n onnegative test result by immunoassay screen. It is a preliminary result. [facility] recommends that a Presumptive Positive result be confirmed by an additional, more specific test such as mass spectrometry NOTE: Presumptive Positive indicates a n onnegative test result by immunoassay screen. It is a preliminary result. [facility] recommends that a Presumptive Positive result be confirmed by an additional, more specific test such as mass spectrometry Name Value Range Interpretation Code Description Data Zoie rce(s) Supporting Document(s) Opiates -23.00NegativeNegative ng/mL 40.00 ng/mL [facility] ID Date Data Source [id number] 06/10/2020 04:46:47 PM EDT [facility] NOTE: Presumptive Positive indicates a n onnegative test result by immunoassay screen. It is a preliminary result. [facility] recommends that a Presumptive Positive result be confirmed by an additional, more specific test such as mass spectrometry NOTE: Presumptive Positive indicates a n onnegative test result by immunoassay screen. It is a preliminary result. [facility] recommends that a Presumptive Positive result be confirmed by an additional, more specific test such as mass spectrometry NOTE: Presumptive Positive indicates a n onnegative test result by immunoassay screen. It is a preliminary result. [facility] recommends that a Presumptive Positive result be confirmed by an additional, more specific test such as mass spectrometry NOTE: Presumptive Positive indicates a n onnegative test result by immunoassay screen. It is a preliminary result. [facility] recommends that a Presumptive Positive result be confirmed by an additional, more specific test such as mass spectrometry NOTE: Presumptive Positive indicates a n onnegative test result by immunoassay screen. It is a preliminary result. [facility] recommends that a Presumptive Positive result be confirmed by an additional, more specific test such as mass spectrometry NOTE: Presumptive Positive indicates a n onnegative test result by immunoassay screen. It is a preliminary result. [facility] recommends that a Presumptive Positive result be confirmed by an additional, more specific test such as mass spectrometry NOTE: Presumptive Positive indicates a n onnegative test result by immunoassay screen. It is a preliminary result. [facility] recommends that a Presumptive Positive result be confirmed by an additional, more specific test such as mass spectrometry NOTE: Presumptive Positive indicates a n onnegative test result by immunoassay screen. It is a preliminary result. [facility] recommends that a Presumptive Positive result be confirmed by an additional, more specific test such as mass spectrometry NOTE: Presumptive Positive indicates a n onnegative test result by immunoassay screen. It is a preliminary result. [facility] recommends that a Presumptive Positive result be confirmed by an additional, more specific test such as mass spectrometry NOTE: Presumptive Positive indicates a n onnegative test result by immunoassay screen. It is a preliminary result. [facility] recommends that a Presumptive Positive result be confirmed by an additional, more specific test such as mass spectrometry Name Value Range Interpretation Code Description Data Zoie rce(s) Supporting Document(s) Synthetic Opiates -13.00NegativeNegative ng/mL 40.00 ng/mL [facility] ID Date Data Source [id number] 06/10/2020 04:46:47 PM EDT [facility] NOTE: Presumptive Positive indicates a n onnegative test result by immunoassay screen. It is a preliminary result. [facility] recommends that a Presumptive Positive result be confirmed by an additional, more specific test such as mass spectrometry NOTE: Presumptive Positive indicates a n onnegative test result by immunoassay screen. It is a preliminary result. [facility] recommends that a Presumptive Positive result be confirmed by an additional, more specific test such as mass spectrometry NOTE: Presumptive Positive indicates a n onnegative test result by immunoassay screen. It is a preliminary result. [facility] recommends that a Presumptive Positive result be confirmed by an additional, more specific test such as mass spectrometry NOTE: Presumptive Positive indicates a n onnegative test result by immunoassay screen. It is a preliminary result. [facility] recommends that a Presumptive Positive result be confirmed by an additional, more specific test such as mass spectrometry NOTE: Presumptive Positive indicates a n onnegative test result by immunoassay screen. It is a preliminary result. [facility] recommends that a Presumptive Positive result be confirmed by an additional, more specific test such as mass spectrometry NOTE: Presumptive Positive indicates a n onnegative test result by immunoassay screen. It is a preliminary result. [facility] recommends that a Presumptive Positive result be confirmed by an additional, more specific test such as mass spectrometry NOTE: Presumptive Positive indicates a n onnegative test result by immunoassay screen. It is a preliminary result. [facility] recommends that a Presumptive Positive result be confirmed by an additional, more specific test such as mass spectrometry NOTE: Presumptive Positive indicates a n onnegative test result by immunoassay screen. It is a preliminary result. [facility] recommends that a Presumptive Positive result be confirmed by an additional, more specific test such as mass spectrometry NOTE: Presumptive Positive indicates a n onnegative test result by immunoassay screen. It is a preliminary result. [facility] recommends that a Presumptive Positive result be confirmed by an additional, more specific test such as mass spectrometry NOTE: Presumptive Positive indicates a n onnegative test result by immunoassay screen. It is a preliminary result. [facility] recommends that a Presumptive Positive result be confirmed by an additional, more specific test such as mass spectrometry Name Value Range Interpretation Code Description Data Zoie rce(s) Supporting Document(s) Cocaine Metabolites -13.00NegativeNegative ng/mL 20.00 ng/mL [facility] ID Date Data Source [id number] 06/10/2020 04:46:47 PM EDT [facility] NOTE: Presumptive Positive indicates a n onnegative test result by immunoassay screen. It is a preliminary result. [facility] recommends that a Presumptive Positive result be confirmed by an additional, more specific test such as mass spectrometry NOTE: Presumptive Positive indicates a n onnegative test result by immunoassay screen. It is a preliminary result. [facility] recommends that a Presumptive Positive result be confirmed by an additional, more specific test such as mass spectrometry NOTE: Presumptive Positive indicates a n onnegative test result by immunoassay screen. It is a preliminary result. [facility] recommends that a Presumptive Positive result be confirmed by an additional, more specific test such as mass spectrometry NOTE: Presumptive Positive indicates a n onnegative test result by immunoassay screen. It is a preliminary result. [facility] recommends that a Presumptive Positive result be confirmed by an additional, more specific test such as mass spectrometry NOTE: Presumptive Positive indicates a n onnegative test result by immunoassay screen. It is a preliminary result. [facility] recommends that a Presumptive Positive result be confirmed by an additional, more specific test such as mass spectrometry NOTE: Presumptive Positive indicates a n onnegative test result by immunoassay screen. It is a preliminary result. [facility] recommends that a Presumptive Positive result be confirmed by an additional, more specific test such as mass spectrometry NOTE: Presumptive Positive indicates a n onnegative test result by immunoassay screen. It is a preliminary result. [facility] recommends that a Presumptive Positive result be confirmed by an additional, more specific test such as mass spectrometry NOTE: Presumptive Positive indicates a n onnegative test result by immunoassay screen. It is a preliminary result. [facility] recommends that a Presumptive Positive result be confirmed by an additional, more specific test such as mass spectrometry NOTE: Presumptive Positive indicates a n onnegative test result by immunoassay screen. It is a preliminary result. [facility] recommends that a Presumptive Positive result be confirmed by an additional, more specific test such as mass spectrometry NOTE: Presumptive Positive indicates a n onnegative test result by immunoassay screen. It is a preliminary result. [facility] recommends that a Presumptive Positive result be confirmed by an additional, more specific test such as mass spectrometry Name Value Range Interpretation Code Description Data Zoie rce(s) Supporting Document(s) Ethyl Alcohol 0.00NegativeNegative mg/dL 40.00 mg/dL [facility] ID Date Data Source [id number] 06/10/2020 04:46:47 PM EDT [facility] NOTE: Presumptive Positive indicates a n onnegative test result by immunoassay screen. It is a preliminary result. [facility] recommends that a Presumptive Positive result be confirmed by an additional, more specific test such as mass spectrometry NOTE: Presumptive Positive indicates a n onnegative test result by immunoassay screen. It is a preliminary result. [facility] recommends that a Presumptive Positive result be confirmed by an additional, more specific test such as mass spectrometry NOTE: Presumptive Positive indicates a n onnegative test result by immunoassay screen. It is a preliminary result. [facility] recommends that a Presumptive Positive result be confirmed by an additional, more specific test such as mass spectrometry NOTE: Presumptive Positive indicates a n onnegative test result by immunoassay screen. It is a preliminary result. [facility] recommends that a Presumptive Positive result be confirmed by an additional, more specific test such as mass spectrometry NOTE: Presumptive Positive indicates a n onnegative test result by immunoassay screen. It is a preliminary result. [facility] recommends that a Presumptive Positive result be confirmed by an additional, more specific test such as mass spectrometry NOTE: Presumptive Positive indicates a n onnegative test result by immunoassay screen. It is a preliminary result. [facility] recommends that a Presumptive Positive result be confirmed by an additional, more specific test such as mass spectrometry NOTE: Presumptive Positive indicates a n onnegative test result by immunoassay screen. It is a preliminary result. [facility] recommends that a Presumptive Positive result be confirmed by an additional, more specific test such as mass spectrometry NOTE: Presumptive Positive indicates a n onnegative test result by immunoassay screen. It is a preliminary result. [facility] recommends that a Presumptive Positive result be confirmed by an additional, more specific test such as mass spectrometry NOTE: Presumptive Positive indicates a n onnegative test result by immunoassay screen. It is a preliminary result. [facility] recommends that a Presumptive Positive result be confirmed by an additional, more specific test such as mass spectrometry NOTE: Presumptive Positive indicates a n onnegative test result by immunoassay screen. It is a preliminary result. [facility] recommends that a Presumptive Positive result be confirmed by an additional, more specific test such as mass spectrometry Name Value Range Interpretation Code Description Data Zoie rce(s) Supporting Document(s) Phencyclidine -5.00NegativeNegative ng/mL 10.00 ng/mL [facility] ID Date Data Source [id number] 06/10/2020 04:46:47 PM EDT [facility] NOTE: Presumptive Positive indicates a n onnegative test result by immunoassay screen. It is a preliminary result. [facility] recommends that a Presumptive Positive result be confirmed by an additional, more specific test such as mass spectrometry NOTE: Presumptive Positive indicates a n onnegative test result by immunoassay screen. It is a preliminary result. [facility] recommends that a Presumptive Positive result be confirmed by an additional, more specific test such as mass spectrometry NOTE: Presumptive Positive indicates a n onnegative test result by immunoassay screen. It is a preliminary result. [facility] recommends that a Presumptive Positive result be confirmed by an additional, more specific test such as mass spectrometry NOTE: Presumptive Positive indicates a n onnegative test result by immunoassay screen. It is a preliminary result. [facility] recommends that a Presumptive Positive result be confirmed by an additional, more specific test such as mass spectrometry NOTE: Presumptive Positive indicates a n onnegative test result by immunoassay screen. It is a preliminary result. [facility] recommends that a Presumptive Positive result be confirmed by an additional, more specific test such as mass spectrometry NOTE: Presumptive Positive indicates a n onnegative test result by immunoassay screen. It is a preliminary result. [facility] recommends that a Presumptive Positive result be confirmed by an additional, more specific test such as mass spectrometry NOTE: Presumptive Positive indicates a n onnegative test result by immunoassay screen. It is a preliminary result. [facility] recommends that a Presumptive Positive result be confirmed by an additional, more specific test such as mass spectrometry NOTE: Presumptive Positive indicates a n onnegative test result by immunoassay screen. It is a preliminary result. [facility] recommends that a Presumptive Positive result be confirmed by an additional, more specific test such as mass spectrometry NOTE: Presumptive Positive indicates a n onnegative test result by immunoassay screen. It is a preliminary result. [facility] recommends that a Presumptive Positive result be confirmed by an additional, more specific test such as mass spectrometry NOTE: Presumptive Positive indicates a n onnegative test result by immunoassay screen. It is a preliminary result. [facility] recommends that a Presumptive Positive result be confirmed by an additional, more specific test such as mass spectrometry Name Value Range Interpretation Code Description Data Zoie rce(s) Supporting Document(s) Cannabinoids 3.00NegativeNegative ng/mL 8.00 ng/mL [facility] ID Date Data Source [id number] 06/10/2020 04:46:47 PM EDT [facility] NOTE: Presumptive Positive indicates a n onnegative test result by immunoassay screen. It is a preliminary result. [facility] recommends that a Presumptive Positive result be confirmed by an additional, more specific test such as mass spectrometry NOTE: Presumptive Positive indicates a n onnegative test result by immunoassay screen. It is a preliminary result. [facility] recommends that a Presumptive Positive result be confirmed by an additional, more specific test such as mass spectrometry NOTE: Presumptive Positive indicates a n onnegative test result by immunoassay screen. It is a preliminary result. [facility] recommends that a Presumptive Positive result be confirmed by an additional, more specific test such as mass spectrometry NOTE: Presumptive Positive indicates a n onnegative test result by immunoassay screen. It is a preliminary result. [facility] recommends that a Presumptive Positive result be confirmed by an additional, more specific test such as mass spectrometry NOTE: Presumptive Positive indicates a n onnegative test result by immunoassay screen. It is a preliminary result. [facility] recommends that a Presumptive Positive result be confirmed by an additional, more specific test such as mass spectrometry NOTE: Presumptive Positive indicates a n onnegative test result by immunoassay screen. It is a preliminary result. [facility] recommends that a Presumptive Positive result be confirmed by an additional, more specific test such as mass spectrometry NOTE: Presumptive Positive indicates a n onnegative test result by immunoassay screen. It is a preliminary result. [facility] recommends that a Presumptive Positive result be confirmed by an additional, more specific test such as mass spectrometry NOTE: Presumptive Positive indicates a n onnegative test result by immunoassay screen. It is a preliminary result. [facility] recommends that a Presumptive Positive result be confirmed by an additional, more specific test such as mass spectrometry NOTE: Presumptive Positive indicates a n onnegative test result by immunoassay screen. It is a preliminary result. [facility] recommends that a Presumptive Positive result be confirmed by an additional, more specific test such as mass spectrometry NOTE: Presumptive Positive indicates a n onnegative test result by immunoassay screen. It is a preliminary result. [facility] recommends that a Presumptive Positive result be confirmed by an additional, more specific test such as mass spectrometry Name Value Range Interpretation Code Description Data Zoie rce(s) Supporting Document(s) Tramadol -61.00NegativeNegative ng/mL 50.00 ng/mL [facility] ID Date Data Source [id number] 06/10/2020 04:46:48 PM EDT [facility] NOTE: Presumptive Positive indicates a n onnegative test result by immunoassay screen. It is a preliminary result. [facility] recommends that a Presumptive Positive result be confirmed by an additional, more specific test such as mass spectrometry NOTE: Presumptive Positive indicates a n onnegative test result by immunoassay screen. It is a preliminary result. [facility] recommends that a Presumptive Positive result be confirmed by an additional, more specific test such as mass spectrometry NOTE: Presumptive Positive indicates a n onnegative test result by immunoassay screen. It is a preliminary result. [facility] recommends that a Presumptive Positive result be confirmed by an additional, more specific test such as mass spectrometry NOTE: Presumptive Positive indicates a n onnegative test result by immunoassay screen. It is a preliminary result. [facility] recommends that a Presumptive Positive result be confirmed by an additional, more specific test such as mass spectrometry NOTE: Presumptive Positive indicates a n onnegative test result by immunoassay screen. It is a preliminary result. [facility] recommends that a Presumptive Positive result be confirmed by an additional, more specific test such as mass spectrometry NOTE: Presumptive Positive indicates a n onnegative test result by immunoassay screen. It is a preliminary result. [facility] recommends that a Presumptive Positive result be confirmed by an additional, more specific test such as mass spectrometry NOTE: Presumptive Positive indicates a n onnegative test result by immunoassay screen. It is a preliminary result. [facility] recommends that a Presumptive Positive result be confirmed by an additional, more specific test such as mass spectrometry NOTE: Presumptive Positive indicates a n onnegative test result by immunoassay screen. It is a preliminary result. [facility] recommends that a Presumptive Positive result be confirmed by an additional, more specific test such as mass spectrometry NOTE: Presumptive Positive indicates a n onnegative test result by immunoassay screen. It is a preliminary result. [facility] recommends that a Presumptive Positive result be confirmed by an additional, more specific test such as mass spectrometry NOTE: Presumptive Positive indicates a n onnegative test result by immunoassay screen. It is a preliminary result. [facility] recommends that a Presumptive Positive result be confirmed by an additional, more specific test such as mass spectrometry Name Value Range Interpretation Code Description Data Zoie rce(s) Supporting Document(s) Amphetamines 2.00NegativeNegative ng/mL 50.00 ng/mL [facility] ID Date Data Source [id number] 06/10/2020 04:46:48 PM EDT [facility] NOTE: Presumptive Positive indicates a n onnegative test result by immunoassay screen. It is a preliminary result. [facility] recommends that a Presumptive Positive result be confirmed by an additional, more specific test such as mass spectrometry NOTE: Presumptive Positive indicates a n onnegative test result by immunoassay screen. It is a preliminary result. [facility] recommends that a Presumptive Positive result be confirmed by an additional, more specific test such as mass spectrometry NOTE: Presumptive Positive indicates a n onnegative test result by immunoassay screen. It is a preliminary result. [facility] recommends that a Presumptive Positive result be confirmed by an additional, more specific test such as mass spectrometry NOTE: Presumptive Positive indicates a n onnegative test result by immunoassay screen. It is a preliminary result. [facility] recommends that a Presumptive Positive result be confirmed by an additional, more specific test such as mass spectrometry NOTE: Presumptive Positive indicates a n onnegative test result by immunoassay screen. It is a preliminary result. [facility] recommends that a Presumptive Positive result be confirmed by an additional, more specific test such as mass spectrometry NOTE: Presumptive Positive indicates a n onnegative test result by immunoassay screen. It is a preliminary result. [facility] recommends that a Presumptive Positive result be confirmed by an additional, more specific test such as mass spectrometry NOTE: Presumptive Positive indicates a n onnegative test result by immunoassay screen. It is a preliminary result. [facility] recommends that a Presumptive Positive result be confirmed by an additional, more specific test such as mass spectrometry NOTE: Presumptive Positive indicates a n onnegative test result by immunoassay screen. It is a preliminary result. [facility] recommends that a Presumptive Positive result be confirmed by an additional, more specific test such as mass spectrometry NOTE: Presumptive Positive indicates a n onnegative test result by immunoassay screen. It is a preliminary result. [facility] recommends that a Presumptive Positive result be confirmed by an additional, more specific test such as mass spectrometry NOTE: Presumptive Positive indicates a n onnegative test result by immunoassay screen. It is a preliminary result. [facility] recommends that a Presumptive Positive result be confirmed by an additional, more specific test such as mass spectrometry Name Value Range Interpretation Code Description Data Zoie rce(s) Supporting Document(s) 6-MIGUEL 0.000NegativeNegative ng/mL 10.00 ng/mL [facility] ID Date Data Source [id number] 06/10/2020 04:46:48 PM EDT [facility] NOTE: Presumptive Positive indicates a n onnegative test result by immunoassay screen. It is a preliminary result. [facility] recommends that a Presumptive Positive result be confirmed by an additional, more specific test such as mass spectrometry NOTE: Presumptive Positive indicates a n onnegative test result by immunoassay screen. It is a preliminary result. [facility] recommends that a Presumptive Positive result be confirmed by an additional, more specific test such as mass spectrometry NOTE: Presumptive Positive indicates a n onnegative test result by immunoassay screen. It is a preliminary result. [facility] recommends that a Presumptive Positive result be confirmed by an additional, more specific test such as mass spectrometry NOTE: Presumptive Positive indicates a n onnegative test result by immunoassay screen. It is a preliminary result. [facility] recommends that a Presumptive Positive result be confirmed by an additional, more specific test such as mass spectrometry NOTE: Presumptive Positive indicates a n onnegative test result by immunoassay screen. It is a preliminary result. [facility] recommends that a Presumptive Positive result be confirmed by an additional, more specific test such as mass spectrometry NOTE: Presumptive Positive indicates a n onnegative test result by immunoassay screen. It is a preliminary result. [facility] recommends that a Presumptive Positive result be confirmed by an additional, more specific test such as mass spectrometry NOTE: Presumptive Positive indicates a n onnegative test result by immunoassay screen. It is a preliminary result. [facility] recommends that a Presumptive Positive result be confirmed by an additional, more specific test such as mass spectrometry NOTE: Presumptive Positive indicates a n onnegative test result by immunoassay screen. It is a preliminary result. [facility] recommends that a Presumptive Positive result be confirmed by an additional, more specific test such as mass spectrometry NOTE: Presumptive Positive indicates a n onnegative test result by immunoassay screen. It is a preliminary result. [facility] recommends that a Presumptive Positive result be confirmed by an additional, more specific test such as mass spectrometry NOTE: Presumptive Positive indicates a n onnegative test result by immunoassay screen. It is a preliminary result. [facility] recommends that a Presumptive Positive result be confirmed by an additional, more specific test such as mass spectrometry Name Value Range Interpretation Code Description Data Zoie rce(s) Supporting Document(s) Buprenorphine 0.000Negative - InconsistentNegative ng /mL 2.50 ng/mL Abnormal (applies to non-numeric results) [facility] Naloxone 0.000Negative - InconsistentNegative ng /mL 10.00 ng/mL Abnormal (applies to non-numeric results) [facility] Norbuprenorphine 0.000Negative - InconsistentNegati ve ng/mL 10.00 ng/mL Abnormal (applies to non-numeric results) [facility] ID Date Data Source [id number] 06/10/2020 04:46:48 PM EDT [facility] NOTE: Presumptive Positive indicates a n onnegative test result by immunoassay screen. It is a preliminary result. [facility] recommends that a Presumptive Positive result be confirmed by an additional, more specific test such as mass spectrometry NOTE: Presumptive Positive indicates a n onnegative test result by immunoassay screen. It is a preliminary result. [facility] recommends that a Presumptive Positive result be confirmed by an additional, more specific test such as mass spectrometry NOTE: Presumptive Positive indicates a n onnegative test result by immunoassay screen. It is a preliminary result. [facility] recommends that a Presumptive Positive result be confirmed by an additional, more specific test such as mass spectrometry NOTE: Presumptive Positive indicates a n onnegative test result by immunoassay screen. It is a preliminary result. [facility] recommends that a Presumptive Positive result be confirmed by an additional, more specific test such as mass spectrometry NOTE: Presumptive Positive indicates a n onnegative test result by immunoassay screen. It is a preliminary result. [facility] recommends that a Presumptive Positive result be confirmed by an additional, more specific test such as mass spectrometry NOTE: Presumptive Positive indicates a n onnegative test result by immunoassay screen. It is a preliminary result. [facility] recommends that a Presumptive Positive result be confirmed by an additional, more specific test such as mass spectrometry NOTE: Presumptive Positive indicates a n onnegative test result by immunoassay screen. It is a preliminary result. [facility] recommends that a Presumptive Positive result be confirmed by an additional, more specific test such as mass spectrometry NOTE: Presumptive Positive indicates a n onnegative test result by immunoassay screen. It is a preliminary result. [facility] recommends that a Presumptive Positive result be confirmed by an additional, more specific test such as mass spectrometry NOTE: Presumptive Positive indicates a n onnegative test result by immunoassay screen. It is a preliminary result. [facility] recommends that a Presumptive Positive result be confirmed by an additional, more specific test such as mass spectrometry NOTE: Presumptive Positive indicates a n onnegative test result by immunoassay screen. It is a preliminary result. [facility] recommends that a Presumptive Positive result be confirmed by an additional, more specific test such as mass spectrometry Name Value Range Interpretation Code Description Data Zoie rce(s) Supporting Document(s) Fentanyl 3.200Positive - InconsistentPOSITIVE ng /mL 2.50 ng/mL Abnormal (applies to non-numeric results) [facility] Norfentanyl 0.000NegativeNegative ng/mL 10.00 ng/mL [facility] ID Date Data Source [id number] 06/10/2020 04:46:48 PM EDT [facility] NOTE: Presumptive Positive indicates a n onnegative test result by immunoassay screen. It is a preliminary result. [facility] recommends that a Presumptive Positive result be confirmed by an additional, more specific test such as mass spectrometry NOTE: Presumptive Positive indicates a n onnegative test result by immunoassay screen. It is a preliminary result. [facility] recommends that a Presumptive Positive result be confirmed by an additional, more specific test such as mass spectrometry NOTE: Presumptive Positive indicates a n onnegative test result by immunoassay screen. It is a preliminary result. [facility] recommends that a Presumptive Positive result be confirmed by an additional, more specific test such as mass spectrometry NOTE: Presumptive Positive indicates a n onnegative test result by immunoassay screen. It is a preliminary result. [facility] recommends that a Presumptive Positive result be confirmed by an additional, more specific test such as mass spectrometry NOTE: Presumptive Positive indicates a n onnegative test result by immunoassay screen. It is a preliminary result. [facility] recommends that a Presumptive Positive result be confirmed by an additional, more specific test such as mass spectrometry NOTE: Presumptive Positive indicates a n onnegative test result by immunoassay screen. It is a preliminary result. [facility] recommends that a Presumptive Positive result be confirmed by an additional, more specific test such as mass spectrometry NOTE: Presumptive Positive indicates a n onnegative test result by immunoassay screen. It is a preliminary result. [facility] recommends that a Presumptive Positive result be confirmed by an additional, more specific test such as mass spectrometry NOTE: Presumptive Positive indicates a n onnegative test result by immunoassay screen. It is a preliminary result. [facility] recommends that a Presumptive Positive result be confirmed by an additional, more specific test such as mass spectrometry NOTE: Presumptive Positive indicates a n onnegative test result by immunoassay screen. It is a preliminary result. [facility] recommends that a Presumptive Positive result be confirmed by an additional, more specific test such as mass spectrometry NOTE: Presumptive Positive indicates a n onnegative test result by immunoassay screen. It is a preliminary result. [facility] recommends that a Presumptive Positive result be confirmed by an additional, more specific test such as mass spectrometry Name Value Range Interpretation Code Description Data Zoie rce(s) Supporting Document(s) MDA 0.000NegativeNegative ng/mL 25.00 ng/mL [facility] MDEA 0.000NegativeNegative ng/mL 2.50 ng/mL [facility] ID Date Data Source [id number] 06/10/2020 04:46:49 PM EDT [facility] NOTE: Presumptive Positive indicates a n onnegative test result by immunoassay screen. It is a preliminary result. [facility] recommends that a Presumptive Positive result be confirmed by an additional, more specific test such as mass spectrometry NOTE: Presumptive Positive indicates a n onnegative test result by immunoassay screen. It is a preliminary result. [facility] recommends that a Presumptive Positive result be confirmed by an additional, more specific test such as mass spectrometry NOTE: Presumptive Positive indicates a n onnegative test result by immunoassay screen. It is a preliminary result. [facility] recommends that a Presumptive Positive result be confirmed by an additional, more specific test such as mass spectrometry NOTE: Presumptive Positive indicates a n onnegative test result by immunoassay screen. It is a preliminary result. [facility] recommends that a Presumptive Positive result be confirmed by an additional, more specific test such as mass spectrometry NOTE: Presumptive Positive indicates a n onnegative test result by immunoassay screen. It is a preliminary result. [facility] recommends that a Presumptive Positive result be confirmed by an additional, more specific test such as mass spectrometry NOTE: Presumptive Positive indicates a n onnegative test result by immunoassay screen. It is a preliminary result. [facility] recommends that a Presumptive Positive result be confirmed by an additional, more specific test such as mass spectrometry NOTE: Presumptive Positive indicates a n onnegative test result by immunoassay screen. It is a preliminary result. [facility] recommends that a Presumptive Positive result be confirmed by an additional, more specific test such as mass spectrometry NOTE: Presumptive Positive indicates a n onnegative test result by immunoassay screen. It is a preliminary result. [facility] recommends that a Presumptive Positive result be confirmed by an additional, more specific test such as mass spectrometry NOTE: Presumptive Positive indicates a n onnegative test result by immunoassay screen. It is a preliminary result. [facility] recommends that a Presumptive Positive result be confirmed by an additional, more specific test such as mass spectrometry NOTE: Presumptive Positive indicates a n onnegative test result by immunoassay screen. It is a preliminary result. [facility] recommends that a Presumptive Positive result be confirmed by an additional, more specific test such as mass spectrometry Name Value Range Interpretation Code Description Data Zoie rce(s) Supporting Document(s) Clonazepam 0.000NegativeNegative ng/mL 50.00 ng/mL [facility] Alprazolam 0.000NegativeNegative ng/mL 5.00 ng/mL [facility] Temazepam 0.000NegativeNegative ng/mL 10.00 ng/mL [facility] Oxazepam 0.000NegativeNegative ng/mL 25.00 ng/mL [facility] Lorazepam 0.000NegativeNegative ng/mL 10.00 ng/mL [facility] Diazepam 0.000NegativeNegative ng/mL 5.00 ng/mL [facility] ID Date Data Source [id number] 06/10/2020 04:46:49 PM EDT [facility] NOTE: Presumptive Positive indicates a n onnegative test result by immunoassay screen. It is a preliminary result. [facility] recommends that a Presumptive Positive result be confirmed by an additional, more specific test such as mass spectrometry NOTE: Presumptive Positive indicates a n onnegative test result by immunoassay screen. It is a preliminary result. [facility] recommends that a Presumptive Positive result be confirmed by an additional, more specific test such as mass spectrometry NOTE: Presumptive Positive indicates a n onnegative test result by immunoassay screen. It is a preliminary result. [facility] recommends that a Presumptive Positive result be confirmed by an additional, more specific test such as mass spectrometry NOTE: Presumptive Positive indicates a n onnegative test result by immunoassay screen. It is a preliminary result. [facility] recommends that a Presumptive Positive result be confirmed by an additional, more specific test such as mass spectrometry NOTE: Presumptive Positive indicates a n onnegative test result by immunoassay screen. It is a preliminary result. [facility] recommends that a Presumptive Positive result be confirmed by an additional, more specific test such as mass spectrometry NOTE: Presumptive Positive indicates a n onnegative test result by immunoassay screen. It is a preliminary result. [facility] recommends that a Presumptive Positive result be confirmed by an additional, more specific test such as mass spectrometry NOTE: Presumptive Positive indicates a n onnegative test result by immunoassay screen. It is a preliminary result. [facility] recommends that a Presumptive Positive result be confirmed by an additional, more specific test such as mass spectrometry NOTE: Presumptive Positive indicates a n onnegative test result by immunoassay screen. It is a preliminary result. [facility] recommends that a Presumptive Positive result be confirmed by an additional, more specific test such as mass spectrometry NOTE: Presumptive Positive indicates a n onnegative test result by immunoassay screen. It is a preliminary result. [facility] recommends that a Presumptive Positive result be confirmed by an additional, more specific test such as mass spectrometry NOTE: Presumptive Positive indicates a n onnegative test result by immunoassay screen. It is a preliminary result. [facility] recommends that a Presumptive Positive result be confirmed by an additional, more specific test such as mass spectrometry Name Value Range Interpretation Code Description Data Zoie rce(s) Supporting Document(s) Gabapentin 0.000NegativeNegative ng/mL 100.00 ng/mL [facility] Pregabalin 0.000NegativeNegative ng/mL 100.00 ng/mL [facility] ID Date Data Source [id number] 05/31/2020 07:08:00 PM EDT [facility] ([facility]) Name Value Range Interpretation Code Description Data Zoie rce(s) Supporting Document(s) Creatinine [Interpretation] in Urine 155.0NORMALNORMAL [facility] ([facility]) Oxidants [Presence] in Urine -8.00NegativeNegative [facility] ([facility]) pH of Lower respiratory specimen 4.1NORMALNORMAL [facility] ([facility]) Validity Result VALIDVALIDVALID [facility] ([facility]) Heroin (6-AM) 23.60PRESUMPTIVE POSITIVEPRESUMPTIVE POSITIVE [facility] ([facility]) Methadone [Mass/volume] in Blood -28.00NegativeNegative [facility] ([facility]) Opiates [Presence] in Unknown substance by Confirmator y method 723.00PRESUMPTIVE POSITIVEPRESUMPTIVE POSITIVE [facility] ([facility]) Synthetic Opiates -21.00NegativeNegative [facility] ([facility]) Ethyl glucuronide [Mass/volume] in Urine by Confirmato ry method 1000.00PRESUMPTIVE POSITIVEPRESUMPTIVE POSITIVE [facility] ([facility]) Cocaine Metabolites -28.00NegativeNegative [facility] ([facility]) Ethyl Alcohol 0.00NegativeNegative [facility] ([facility]) Ecstasy (MDMA) 41.00NegativeNegative [facility] ([facility]) Cannabinoids [Presence] in Unknown substance by Confir matory method 17.80NegativeNegative [facility] ( [facility]) Phencyclidine [Presence] in Unknown substance by Confi rmatory method -4.00NegativeNegative [facility] ( [facility]) Tramadol [Presence] in Blood by Screen method 3.00NegativeNeg ative [facility] ([facility]) Amphetamines [Presence] in Stool 302.00NegativeNegative [facility] ([facility]) 6-MIGUEL 27.190Positive - InconsistentPOSITIVE [facility] ([facility]) Buprenorphine [Presence] in Blood by Screen method 250 Positive - ConsistentPOSITIVE> [facility] ([facility]) Norbuprenorphine [Mass/mass] in Meconium by Confirmato ry method 290.150Positive - ConsistentPOSITIVE [facility] ([facility]) Naloxone [Mass/volume] in Urine by Confirmatory method 0.000Negative - InconsistentNegative [facility] ([facility]) Morphine [Mass/mass] in Hair 2500Positive - InconsistentPOSIT JOAN> [facility] ([facility]) Codeine [Presence] in Saliva (oral fluid) by Confirmat ory method 108.510Positive - InconsistentPOSITIVE [facility] ([facility]) Hydrocodone [Z-score] in Urine 15.430NegativeNegative [facility] ([facility]) Hydromorphone [Presence] in Saliva (oral fluid) by Con firmatory method 22.570NegativeNegative [facility] ([facility]) Norhydrocodone [Presence] in Saliva (oral fluid) by Co nfirmatory method 3.790NegativeNegative [facility] ( [facility]) Norfentanyl [Mass/volume] in Serum, Plasma or Blood by Confirmatory method 50Positive - InconsistentPOSITIVE> [facility] ([facility]) Carfentanil 0.000NegativeNegative [facility] ([facility]) Norcarfentanil 0.230NegativeNegative [facility] ([facility]) Fentanyl [Z-score] in Urine 50Positive - InconsistentPOSITIVE *> [facility] ([facility]) Sufentanil [Mass/volume] in Urine 0.170NegativeNegative [facility] ([facility]) Temazepam [Moles/volume] in Unspecified specimen 0.000Neg ativeNegative [facility] ([facility]) 7-Aminoclonazepam [Mass/mass] in Hair 0.000NegativeNegative [facility] ([facility]) alpha-Hydroxyalprazolam 0.000NegativeNegative [facility] ([facility]) Lorazepam [Moles/volume] in Unspecified specimen 9.930Neg ativeNegative [facility] ([facility]) Nordiazepam [Moles/volume] in Unspecified specimen 3.470NegativeNegative [facility] ( [facility]) Oxazepam [Moles/volume] in Unspecified specimen 18.950Neg ativeNegative [facility] ([facility]) Ethyl glucuronide [Mass/volume] in Urine by Confirmato ry method 1661.260Positive - InconsistentPOSITIVE [facility] ([facility]) Pregabalin [Presence] in Urine by Screen method 4.580Nega tiveNegative [facility] ([facility]) Ethyl sulfate [Presence] in Urine by Confirmatory meth od 84.280NegativeNegative [facility] ([facility]) Gabapentin [Mass/volume] in Urine by Confirmatory meth od 0.000NegativeNegative [facility] ( [facility]) ID Date Data Source [id number] 06/05/2020 09:33:29 AM EDT [facility] NOTE: Presumptive Positive indicates a n onnegative test result by immunoassay screen. It is a preliminary result. [facility] recommends that a Presumptive Positive result be confirmed by an additional, more specific test such as mass spectrometry NOTE: Presumptive Positive indicates a n onnegative test result by immunoassay screen. It is a preliminary result. [facility] recommends that a Presumptive Positive result be confirmed by an additional, more specific test such as mass spectrometry NOTE: Presumptive Positive indicates a n onnegative test result by immunoassay screen. It is a preliminary result. [facility] recommends that a Presumptive Positive result be confirmed by an additional, more specific test such as mass spectrometry NOTE: Presumptive Positive indicates a n onnegative test result by immunoassay screen. It is a preliminary result. [facility] recommends that a Presumptive Positive result be confirmed by an additional, more specific test such as mass spectrometry NOTE: Presumptive Positive indicates a n onnegative test result by immunoassay screen. It is a preliminary result. [facility] recommends that a Presumptive Positive result be confirmed by an additional, more specific test such as mass spectrometry NOTE: Presumptive Positive indicates a n onnegative test result by immunoassay screen. It is a preliminary result. [facility] recommends that a Presumptive Positive result be confirmed by an additional, more specific test such as mass spectrometry NOTE: Presumptive Positive indicates a n onnegative test result by immunoassay screen. It is a preliminary result. [facility] recommends that a Presumptive Positive result be confirmed by an additional, more specific test such as mass spectrometry NOTE: Presumptive Positive indicates a n onnegative test result by immunoassay screen. It is a preliminary result. [facility] recommends that a Presumptive Positive result be confirmed by an additional, more specific test such as mass spectrometry NOTE: Presumptive Positive indicates a n onnegative test result by immunoassay screen. It is a preliminary result. [facility] recommends that a Presumptive Positive result be confirmed by an additional, more specific test such as mass spectrometry NOTE: Presumptive Positive indicates a n onnegative test result by immunoassay screen. It is a preliminary result. [facility] recommends that a Presumptive Positive result be confirmed by an additional, more specific test such as mass spectrometry NOTE: Presumptive Positive indicates a n onnegative test result by immunoassay screen. It is a preliminary result. [facility] recommends that a Presumptive Positive result be confirmed by an additional, more specific test such as mass spectrometry NOTE: Presumptive Positive indicates a n onnegative test result by immunoassay screen. It is a preliminary result. [facility] recommends that a Presumptive Positive result be confirmed by an additional, more specific test such as mass spectrometry Name Value Range Interpretation Code Description Data Zoie rce(s) Supporting Document(s) Creatinine 155.0NORMALNORMAL mg/dL 20.0-300.0 mg/dL [facility] pH 4.1NORMALNORMAL 3.5-9.2 [facility] Oxidants -8.00NegativeNegative mcg/mL 200.00 mcg/mL [facility] Validity Result VALIDVALIDVALID [facility] ID Date Data Source [id number] 06/05/2020 09:33:29 AM EDT [facility] NOTE: Presumptive Positive indicates a n onnegative test result by immunoassay screen. It is a preliminary result. [facility] recommends that a Presumptive Positive result be confirmed by an additional, more specific test such as mass spectrometry NOTE: Presumptive Positive indicates a n onnegative test result by immunoassay screen. It is a preliminary result. [facility] recommends that a Presumptive Positive result be confirmed by an additional, more specific test such as mass spectrometry NOTE: Presumptive Positive indicates a n onnegative test result by immunoassay screen. It is a preliminary result. [facility] recommends that a Presumptive Positive result be confirmed by an additional, more specific test such as mass spectrometry NOTE: Presumptive Positive indicates a n onnegative test result by immunoassay screen. It is a preliminary result. [facility] recommends that a Presumptive Positive result be confirmed by an additional, more specific test such as mass spectrometry NOTE: Presumptive Positive indicates a n onnegative test result by immunoassay screen. It is a preliminary result. [facility] recommends that a Presumptive Positive result be confirmed by an additional, more specific test such as mass spectrometry NOTE: Presumptive Positive indicates a n onnegative test result by immunoassay screen. It is a preliminary result. [facility] recommends that a Presumptive Positive result be confirmed by an additional, more specific test such as mass spectrometry NOTE: Presumptive Positive indicates a n onnegative test result by immunoassay screen. It is a preliminary result. [facility] recommends that a Presumptive Positive result be confirmed by an additional, more specific test such as mass spectrometry NOTE: Presumptive Positive indicates a n onnegative test result by immunoassay screen. It is a preliminary result. [facility] recommends that a Presumptive Positive result be confirmed by an additional, more specific test such as mass spectrometry NOTE: Presumptive Positive indicates a n onnegative test result by immunoassay screen. It is a preliminary result. [facility] recommends that a Presumptive Positive result be confirmed by an additional, more specific test such as mass spectrometry NOTE: Presumptive Positive indicates a n onnegative test result by immunoassay screen. It is a preliminary result. [facility] recommends that a Presumptive Positive result be confirmed by an additional, more specific test such as mass spectrometry NOTE: Presumptive Positive indicates a n onnegative test result by immunoassay screen. It is a preliminary result. [facility] recommends that a Presumptive Positive result be confirmed by an additional, more specific test such as mass spectrometry NOTE: Presumptive Positive indicates a n onnegative test result by immunoassay screen. It is a preliminary result. [facility] recommends that a Presumptive Positive result be confirmed by an additional, more specific test such as mass spectrometry Name Value Range Interpretation Code Description Data Zoie rce(s) Supporting Document(s) Heroin (6-AM) 23.60PRESUMPTIVE POSITIVEPRESUMPTI VE POSITIVE ng/mL 10.00 ng/mL [facility] ID Date Data Source [id number] 06/05/2020 09:33:30 AM EDT [facility] NOTE: Presumptive Positive indicates a n onnegative test result by immunoassay screen. It is a preliminary result. [facility] recommends that a Presumptive Positive result be confirmed by an additional, more specific test such as mass spectrometry NOTE: Presumptive Positive indicates a n onnegative test result by immunoassay screen. It is a preliminary result. [facility] recommends that a Presumptive Positive result be confirmed by an additional, more specific test such as mass spectrometry NOTE: Presumptive Positive indicates a n onnegative test result by immunoassay screen. It is a preliminary result. [facility] recommends that a Presumptive Positive result be confirmed by an additional, more specific test such as mass spectrometry NOTE: Presumptive Positive indicates a n onnegative test result by immunoassay screen. It is a preliminary result. [facility] recommends that a Presumptive Positive result be confirmed by an additional, more specific test such as mass spectrometry NOTE: Presumptive Positive indicates a n onnegative test result by immunoassay screen. It is a preliminary result. [facility] recommends that a Presumptive Positive result be confirmed by an additional, more specific test such as mass spectrometry NOTE: Presumptive Positive indicates a n onnegative test result by immunoassay screen. It is a preliminary result. [facility] recommends that a Presumptive Positive result be confirmed by an additional, more specific test such as mass spectrometry NOTE: Presumptive Positive indicates a n onnegative test result by immunoassay screen. It is a preliminary result. [facility] recommends that a Presumptive Positive result be confirmed by an additional, more specific test such as mass spectrometry NOTE: Presumptive Positive indicates a n onnegative test result by immunoassay screen. It is a preliminary result. [facility] recommends that a Presumptive Positive result be confirmed by an additional, more specific test such as mass spectrometry NOTE: Presumptive Positive indicates a n onnegative test result by immunoassay screen. It is a preliminary result. [facility] recommends that a Presumptive Positive result be confirmed by an additional, more specific test such as mass spectrometry NOTE: Presumptive Positive indicates a n onnegative test result by immunoassay screen. It is a preliminary result. [facility] recommends that a Presumptive Positive result be confirmed by an additional, more specific test such as mass spectrometry NOTE: Presumptive Positive indicates a n onnegative test result by immunoassay screen. It is a preliminary result. [facility] recommends that a Presumptive Positive result be confirmed by an additional, more specific test such as mass spectrometry NOTE: Presumptive Positive indicates a n onnegative test result by immunoassay screen. It is a preliminary result. [facility] recommends that a Presumptive Positive result be confirmed by an additional, more specific test such as mass spectrometry Name Value Range Interpretation Code Description Data Zoie rce(s) Supporting Document(s) Methadone -28.00NegativeNegative ng/mL 300.00 ng/mL [facility] ID Date Data Source [id number] 06/05/2020 09:33:30 AM EDT [facility] NOTE: Presumptive Positive indicates a n onnegative test result by immunoassay screen. It is a preliminary result. [facility] recommends that a Presumptive Positive result be confirmed by an additional, more specific test such as mass spectrometry NOTE: Presumptive Positive indicates a n onnegative test result by immunoassay screen. It is a preliminary result. [facility] recommends that a Presumptive Positive result be confirmed by an additional, more specific test such as mass spectrometry NOTE: Presumptive Positive indicates a n onnegative test result by immunoassay screen. It is a preliminary result. [facility] recommends that a Presumptive Positive result be confirmed by an additional, more specific test such as mass spectrometry NOTE: Presumptive Positive indicates a n onnegative test result by immunoassay screen. It is a preliminary result. [facility] recommends that a Presumptive Positive result be confirmed by an additional, more specific test such as mass spectrometry NOTE: Presumptive Positive indicates a n onnegative test result by immunoassay screen. It is a preliminary result. [facility] recommends that a Presumptive Positive result be confirmed by an additional, more specific test such as mass spectrometry NOTE: Presumptive Positive indicates a n onnegative test result by immunoassay screen. It is a preliminary result. [facility] recommends that a Presumptive Positive result be confirmed by an additional, more specific test such as mass spectrometry NOTE: Presumptive Positive indicates a n onnegative test result by immunoassay screen. It is a preliminary result. [facility] recommends that a Presumptive Positive result be confirmed by an additional, more specific test such as mass spectrometry NOTE: Presumptive Positive indicates a n onnegative test result by immunoassay screen. It is a preliminary result. [facility] recommends that a Presumptive Positive result be confirmed by an additional, more specific test such as mass spectrometry NOTE: Presumptive Positive indicates a n onnegative test result by immunoassay screen. It is a preliminary result. [facility] recommends that a Presumptive Positive result be confirmed by an additional, more specific test such as mass spectrometry NOTE: Presumptive Positive indicates a n onnegative test result by immunoassay screen. It is a preliminary result. [facility] recommends that a Presumptive Positive result be confirmed by an additional, more specific test such as mass spectrometry NOTE: Presumptive Positive indicates a n onnegative test result by immunoassay screen. It is a preliminary result. [facility] recommends that a Presumptive Positive result be confirmed by an additional, more specific test such as mass spectrometry NOTE: Presumptive Positive indicates a n onnegative test result by immunoassay screen. It is a preliminary result. [facility] recommends that a Presumptive Positive result be confirmed by an additional, more specific test such as mass spectrometry Name Value Range Interpretation Code Description Data Zoie rce(s) Supporting Document(s) Opiates 723.00PRESUMPTIVE POSITIVEPRESUMPT JOAN POSITIVE ng/mL 300.00 ng/mL [facility] ID Date Data Source [id number] 06/05/2020 09:33:30 AM EDT [facility] NOTE: Presumptive Positive indicates a n onnegative test result by immunoassay screen. It is a preliminary result. [facility] recommends that a Presumptive Positive result be confirmed by an additional, more specific test such as mass spectrometry NOTE: Presumptive Positive indicates a n onnegative test result by immunoassay screen. It is a preliminary result. [facility] recommends that a Presumptive Positive result be confirmed by an additional, more specific test such as mass spectrometry NOTE: Presumptive Positive indicates a n onnegative test result by immunoassay screen. It is a preliminary result. [facility] recommends that a Presumptive Positive result be confirmed by an additional, more specific test such as mass spectrometry NOTE: Presumptive Positive indicates a n onnegative test result by immunoassay screen. It is a preliminary result. [facility] recommends that a Presumptive Positive result be confirmed by an additional, more specific test such as mass spectrometry NOTE: Presumptive Positive indicates a n onnegative test result by immunoassay screen. It is a preliminary result. [facility] recommends that a Presumptive Positive result be confirmed by an additional, more specific test such as mass spectrometry NOTE: Presumptive Positive indicates a n onnegative test result by immunoassay screen. It is a preliminary result. [facility] recommends that a Presumptive Positive result be confirmed by an additional, more specific test such as mass spectrometry NOTE: Presumptive Positive indicates a n onnegative test result by immunoassay screen. It is a preliminary result. [facility] recommends that a Presumptive Positive result be confirmed by an additional, more specific test such as mass spectrometry NOTE: Presumptive Positive indicates a n onnegative test result by immunoassay screen. It is a preliminary result. [facility] recommends that a Presumptive Positive result be confirmed by an additional, more specific test such as mass spectrometry NOTE: Presumptive Positive indicates a n onnegative test result by immunoassay screen. It is a preliminary result. [facility] recommends that a Presumptive Positive result be confirmed by an additional, more specific test such as mass spectrometry NOTE: Presumptive Positive indicates a n onnegative test result by immunoassay screen. It is a preliminary result. [facility] recommends that a Presumptive Positive result be confirmed by an additional, more specific test such as mass spectrometry NOTE: Presumptive Positive indicates a n onnegative test result by immunoassay screen. It is a preliminary result. [facility] recommends that a Presumptive Positive result be confirmed by an additional, more specific test such as mass spectrometry NOTE: Presumptive Positive indicates a n onnegative test result by immunoassay screen. It is a preliminary result. [facility] recommends that a Presumptive Positive result be confirmed by an additional, more specific test such as mass spectrometry Name Value Range Interpretation Code Description Data Zoie rce(s) Supporting Document(s) Synthetic Opiates -21.00NegativeNegative ng/mL 100.00 ng/mL [facility] ID Date Data Source [id number] 06/05/2020 09:33:30 AM EDT [facility] NOTE: Presumptive Positive indicates a n onnegative test result by immunoassay screen. It is a preliminary result. [facility] recommends that a Presumptive Positive result be confirmed by an additional, more specific test such as mass spectrometry NOTE: Presumptive Positive indicates a n onnegative test result by immunoassay screen. It is a preliminary result. [facility] recommends that a Presumptive Positive result be confirmed by an additional, more specific test such as mass spectrometry NOTE: Presumptive Positive indicates a n onnegative test result by immunoassay screen. It is a preliminary result. [facility] recommends that a Presumptive Positive result be confirmed by an additional, more specific test such as mass spectrometry NOTE: Presumptive Positive indicates a n onnegative test result by immunoassay screen. It is a preliminary result. [facility] recommends that a Presumptive Positive result be confirmed by an additional, more specific test such as mass spectrometry NOTE: Presumptive Positive indicates a n onnegative test result by immunoassay screen. It is a preliminary result. [facility] recommends that a Presumptive Positive result be confirmed by an additional, more specific test such as mass spectrometry NOTE: Presumptive Positive indicates a n onnegative test result by immunoassay screen. It is a preliminary result. [facility] recommends that a Presumptive Positive result be confirmed by an additional, more specific test such as mass spectrometry NOTE: Presumptive Positive indicates a n onnegative test result by immunoassay screen. It is a preliminary result. [facility] recommends that a Presumptive Positive result be confirmed by an additional, more specific test such as mass spectrometry NOTE: Presumptive Positive indicates a n onnegative test result by immunoassay screen. It is a preliminary result. [facility] recommends that a Presumptive Positive result be confirmed by an additional, more specific test such as mass spectrometry NOTE: Presumptive Positive indicates a n onnegative test result by immunoassay screen. It is a preliminary result. [facility] recommends that a Presumptive Positive result be confirmed by an additional, more specific test such as mass spectrometry NOTE: Presumptive Positive indicates a n onnegative test result by immunoassay screen. It is a preliminary result. [facility] recommends that a Presumptive Positive result be confirmed by an additional, more specific test such as mass spectrometry NOTE: Presumptive Positive indicates a n onnegative test result by immunoassay screen. It is a preliminary result. [facility] recommends that a Presumptive Positive result be confirmed by an additional, more specific test such as mass spectrometry NOTE: Presumptive Positive indicates a n onnegative test result by immunoassay screen. It is a preliminary result. [facility] recommends that a Presumptive Positive result be confirmed by an additional, more specific test such as mass spectrometry Name Value Range Interpretation Code Description Data Zoie rce(s) Supporting Document(s) Cocaine Metabolites -28.00NegativeNegative ng/mL 300.00 ng/m L [facility] ID Date Data Source [id number] 06/05/2020 09:33:30 AM EDT [facility] NOTE: Presumptive Positive indicates a n onnegative test result by immunoassay screen. It is a preliminary result. [facility] recommends that a Presumptive Positive result be confirmed by an additional, more specific test such as mass spectrometry NOTE: Presumptive Positive indicates a n onnegative test result by immunoassay screen. It is a preliminary result. [facility] recommends that a Presumptive Positive result be confirmed by an additional, more specific test such as mass spectrometry NOTE: Presumptive Positive indicates a n onnegative test result by immunoassay screen. It is a preliminary result. [facility] recommends that a Presumptive Positive result be confirmed by an additional, more specific test such as mass spectrometry NOTE: Presumptive Positive indicates a n onnegative test result by immunoassay screen. It is a preliminary result. [facility] recommends that a Presumptive Positive result be confirmed by an additional, more specific test such as mass spectrometry NOTE: Presumptive Positive indicates a n onnegative test result by immunoassay screen. It is a preliminary result. [facility] recommends that a Presumptive Positive result be confirmed by an additional, more specific test such as mass spectrometry NOTE: Presumptive Positive indicates a n onnegative test result by immunoassay screen. It is a preliminary result. [facility] recommends that a Presumptive Positive result be confirmed by an additional, more specific test such as mass spectrometry NOTE: Presumptive Positive indicates a n onnegative test result by immunoassay screen. It is a preliminary result. [facility] recommends that a Presumptive Positive result be confirmed by an additional, more specific test such as mass spectrometry NOTE: Presumptive Positive indicates a n onnegative test result by immunoassay screen. It is a preliminary result. [facility] recommends that a Presumptive Positive result be confirmed by an additional, more specific test such as mass spectrometry NOTE: Presumptive Positive indicates a n onnegative test result by immunoassay screen. It is a preliminary result. [facility] recommends that a Presumptive Positive result be confirmed by an additional, more specific test such as mass spectrometry NOTE: Presumptive Positive indicates a n onnegative test result by immunoassay screen. It is a preliminary result. [facility] recommends that a Presumptive Positive result be confirmed by an additional, more specific test such as mass spectrometry NOTE: Presumptive Positive indicates a n onnegative test result by immunoassay screen. It is a preliminary result. [facility] recommends that a Presumptive Positive result be confirmed by an additional, more specific test such as mass spectrometry NOTE: Presumptive Positive indicates a n onnegative test result by immunoassay screen. It is a preliminary result. [facility] recommends that a Presumptive Positive result be confirmed by an additional, more specific test such as mass spectrometry Name Value Range Interpretation Code Description Data Zoie rce(s) Supporting Document(s) Ethyl Glucuronide 1000.00PRESUMPTIVE POSITI VEPRESUMPTIVE POSITIVE ng/mL 500.00 ng/mL [facility] ID Date Data Source [id number] 06/05/2020 09:33:31 AM EDT [facility] NOTE: Presumptive Positive indicates a n onnegative test result by immunoassay screen. It is a preliminary result. [facility] recommends that a Presumptive Positive result be confirmed by an additional, more specific test such as mass spectrometry NOTE: Presumptive Positive indicates a n onnegative test result by immunoassay screen. It is a preliminary result. [facility] recommends that a Presumptive Positive result be confirmed by an additional, more specific test such as mass spectrometry NOTE: Presumptive Positive indicates a n onnegative test result by immunoassay screen. It is a preliminary result. [facility] recommends that a Presumptive Positive result be confirmed by an additional, more specific test such as mass spectrometry NOTE: Presumptive Positive indicates a n onnegative test result by immunoassay screen. It is a preliminary result. [facility] recommends that a Presumptive Positive result be confirmed by an additional, more specific test such as mass spectrometry NOTE: Presumptive Positive indicates a n onnegative test result by immunoassay screen. It is a preliminary result. [facility] recommends that a Presumptive Positive result be confirmed by an additional, more specific test such as mass spectrometry NOTE: Presumptive Positive indicates a n onnegative test result by immunoassay screen. It is a preliminary result. [facility] recommends that a Presumptive Positive result be confirmed by an additional, more specific test such as mass spectrometry NOTE: Presumptive Positive indicates a n onnegative test result by immunoassay screen. It is a preliminary result. [facility] recommends that a Presumptive Positive result be confirmed by an additional, more specific test such as mass spectrometry NOTE: Presumptive Positive indicates a n onnegative test result by immunoassay screen. It is a preliminary result. [facility] recommends that a Presumptive Positive result be confirmed by an additional, more specific test such as mass spectrometry NOTE: Presumptive Positive indicates a n onnegative test result by immunoassay screen. It is a preliminary result. [facility] recommends that a Presumptive Positive result be confirmed by an additional, more specific test such as mass spectrometry NOTE: Presumptive Positive indicates a n onnegative test result by immunoassay screen. It is a preliminary result. [facility] recommends that a Presumptive Positive result be confirmed by an additional, more specific test such as mass spectrometry NOTE: Presumptive Positive indicates a n onnegative test result by immunoassay screen. It is a preliminary result. [facility] recommends that a Presumptive Positive result be confirmed by an additional, more specific test such as mass spectrometry NOTE: Presumptive Positive indicates a n onnegative test result by immunoassay screen. It is a preliminary result. [facility] recommends that a Presumptive Positive result be confirmed by an additional, more specific test such as mass spectrometry Name Value Range Interpretation Code Description Data Zoie rce(s) Supporting Document(s) Ethyl Alcohol 0.00NegativeNegative mg/dL 100.00 mg/dL [facility] ID Date Data Source [id number] 06/05/2020 09:33:31 AM EDT [facility] NOTE: Presumptive Positive indicates a n onnegative test result by immunoassay screen. It is a preliminary result. [facility] recommends that a Presumptive Positive result be confirmed by an additional, more specific test such as mass spectrometry NOTE: Presumptive Positive indicates a n onnegative test result by immunoassay screen. It is a preliminary result. [facility] recommends that a Presumptive Positive result be confirmed by an additional, more specific test such as mass spectrometry NOTE: Presumptive Positive indicates a n onnegative test result by immunoassay screen. It is a preliminary result. [facility] recommends that a Presumptive Positive result be confirmed by an additional, more specific test such as mass spectrometry NOTE: Presumptive Positive indicates a n onnegative test result by immunoassay screen. It is a preliminary result. [facility] recommends that a Presumptive Positive result be confirmed by an additional, more specific test such as mass spectrometry NOTE: Presumptive Positive indicates a n onnegative test result by immunoassay screen. It is a preliminary result. [facility] recommends that a Presumptive Positive result be confirmed by an additional, more specific test such as mass spectrometry NOTE: Presumptive Positive indicates a n onnegative test result by immunoassay screen. It is a preliminary result. [facility] recommends that a Presumptive Positive result be confirmed by an additional, more specific test such as mass spectrometry NOTE: Presumptive Positive indicates a n onnegative test result by immunoassay screen. It is a preliminary result. [facility] recommends that a Presumptive Positive result be confirmed by an additional, more specific test such as mass spectrometry NOTE: Presumptive Positive indicates a n onnegative test result by immunoassay screen. It is a preliminary result. [facility] recommends that a Presumptive Positive result be confirmed by an additional, more specific test such as mass spectrometry NOTE: Presumptive Positive indicates a n onnegative test result by immunoassay screen. It is a preliminary result. [facility] recommends that a Presumptive Positive result be confirmed by an additional, more specific test such as mass spectrometry NOTE: Presumptive Positive indicates a n onnegative test result by immunoassay screen. It is a preliminary result. [facility] recommends that a Presumptive Positive result be confirmed by an additional, more specific test such as mass spectrometry NOTE: Presumptive Positive indicates a n onnegative test result by immunoassay screen. It is a preliminary result. [facility] recommends that a Presumptive Positive result be confirmed by an additional, more specific test such as mass spectrometry NOTE: Presumptive Positive indicates a n onnegative test result by immunoassay screen. It is a preliminary result. [facility] recommends that a Presumptive Positive result be confirmed by an additional, more specific test such as mass spectrometry Name Value Range Interpretation Code Description Data Zoie rce(s) Supporting Document(s) Ecstasy (MDMA) 41.00NegativeNegative ng/mL 500.00 ng/mL [facility] ID Date Data Source [id number] 06/05/2020 09:33:31 AM EDT [facility] NOTE: Presumptive Positive indicates a n onnegative test result by immunoassay screen. It is a preliminary result. [facility] recommends that a Presumptive Positive result be confirmed by an additional, more specific test such as mass spectrometry NOTE: Presumptive Positive indicates a n onnegative test result by immunoassay screen. It is a preliminary result. [facility] recommends that a Presumptive Positive result be confirmed by an additional, more specific test such as mass spectrometry NOTE: Presumptive Positive indicates a n onnegative test result by immunoassay screen. It is a preliminary result. [facility] recommends that a Presumptive Positive result be confirmed by an additional, more specific test such as mass spectrometry NOTE: Presumptive Positive indicates a n onnegative test result by immunoassay screen. It is a preliminary result. [facility] recommends that a Presumptive Positive result be confirmed by an additional, more specific test such as mass spectrometry NOTE: Presumptive Positive indicates a n onnegative test result by immunoassay screen. It is a preliminary result. [facility] recommends that a Presumptive Positive result be confirmed by an additional, more specific test such as mass spectrometry NOTE: Presumptive Positive indicates a n onnegative test result by immunoassay screen. It is a preliminary result. [facility] recommends that a Presumptive Positive result be confirmed by an additional, more specific test such as mass spectrometry NOTE: Presumptive Positive indicates a n onnegative test result by immunoassay screen. It is a preliminary result. [facility] recommends that a Presumptive Positive result be confirmed by an additional, more specific test such as mass spectrometry NOTE: Presumptive Positive indicates a n onnegative test result by immunoassay screen. It is a preliminary result. [facility] recommends that a Presumptive Positive result be confirmed by an additional, more specific test such as mass spectrometry NOTE: Presumptive Positive indicates a n onnegative test result by immunoassay screen. It is a preliminary result. [facility] recommends that a Presumptive Positive result be confirmed by an additional, more specific test such as mass spectrometry NOTE: Presumptive Positive indicates a n onnegative test result by immunoassay screen. It is a preliminary result. [facility] recommends that a Presumptive Positive result be confirmed by an additional, more specific test such as mass spectrometry NOTE: Presumptive Positive indicates a n onnegative test result by immunoassay screen. It is a preliminary result. [facility] recommends that a Presumptive Positive result be confirmed by an additional, more specific test such as mass spectrometry NOTE: Presumptive Positive indicates a n onnegative test result by immunoassay screen. It is a preliminary result. [facility] recommends that a Presumptive Positive result be confirmed by an additional, more specific test such as mass spectrometry Name Value Range Interpretation Code Description Data Zoie rce(s) Supporting Document(s) Phencyclidine -4.00NegativeNegative ng/mL 25.00 ng/mL [facility] ID Date Data Source [id number] 06/05/2020 09:33:31 AM EDT [facility] NOTE: Presumptive Positive indicates a n onnegative test result by immunoassay screen. It is a preliminary result. [facility] recommends that a Presumptive Positive result be confirmed by an additional, more specific test such as mass spectrometry NOTE: Presumptive Positive indicates a n onnegative test result by immunoassay screen. It is a preliminary result. [facility] recommends that a Presumptive Positive result be confirmed by an additional, more specific test such as mass spectrometry NOTE: Presumptive Positive indicates a n onnegative test result by immunoassay screen. It is a preliminary result. [facility] recommends that a Presumptive Positive result be confirmed by an additional, more specific test such as mass spectrometry NOTE: Presumptive Positive indicates a n onnegative test result by immunoassay screen. It is a preliminary result. [facility] recommends that a Presumptive Positive result be confirmed by an additional, more specific test such as mass spectrometry NOTE: Presumptive Positive indicates a n onnegative test result by immunoassay screen. It is a preliminary result. [facility] recommends that a Presumptive Positive result be confirmed by an additional, more specific test such as mass spectrometry NOTE: Presumptive Positive indicates a n onnegative test result by immunoassay screen. It is a preliminary result. [facility] recommends that a Presumptive Positive result be confirmed by an additional, more specific test such as mass spectrometry NOTE: Presumptive Positive indicates a n onnegative test result by immunoassay screen. It is a preliminary result. [facility] recommends that a Presumptive Positive result be confirmed by an additional, more specific test such as mass spectrometry NOTE: Presumptive Positive indicates a n onnegative test result by immunoassay screen. It is a preliminary result. [facility] recommends that a Presumptive Positive result be confirmed by an additional, more specific test such as mass spectrometry NOTE: Presumptive Positive indicates a n onnegative test result by immunoassay screen. It is a preliminary result. [facility] recommends that a Presumptive Positive result be confirmed by an additional, more specific test such as mass spectrometry NOTE: Presumptive Positive indicates a n onnegative test result by immunoassay screen. It is a preliminary result. [facility] recommends that a Presumptive Positive result be confirmed by an additional, more specific test such as mass spectrometry NOTE: Presumptive Positive indicates a n onnegative test result by immunoassay screen. It is a preliminary result. [facility] recommends that a Presumptive Positive result be confirmed by an additional, more specific test such as mass spectrometry NOTE: Presumptive Positive indicates a n onnegative test result by immunoassay screen. It is a preliminary result. [facility] recommends that a Presumptive Positive result be confirmed by an additional, more specific test such as mass spectrometry Name Value Range Interpretation Code Description Data Zoie rce(s) Supporting Document(s) Cannabinoids 17.80NegativeNegative ng/mL 20.00 ng/mL [facility] ID Date Data Source [id number] 06/05/2020 09:33:31 AM EDT [facility] NOTE: Presumptive Positive indicates a n onnegative test result by immunoassay screen. It is a preliminary result. [facility] recommends that a Presumptive Positive result be confirmed by an additional, more specific test such as mass spectrometry NOTE: Presumptive Positive indicates a n onnegative test result by immunoassay screen. It is a preliminary result. [facility] recommends that a Presumptive Positive result be confirmed by an additional, more specific test such as mass spectrometry NOTE: Presumptive Positive indicates a n onnegative test result by immunoassay screen. It is a preliminary result. [facility] recommends that a Presumptive Positive result be confirmed by an additional, more specific test such as mass spectrometry NOTE: Presumptive Positive indicates a n onnegative test result by immunoassay screen. It is a preliminary result. [facility] recommends that a Presumptive Positive result be confirmed by an additional, more specific test such as mass spectrometry NOTE: Presumptive Positive indicates a n onnegative test result by immunoassay screen. It is a preliminary result. [facility] recommends that a Presumptive Positive result be confirmed by an additional, more specific test such as mass spectrometry NOTE: Presumptive Positive indicates a n onnegative test result by immunoassay screen. It is a preliminary result. [facility] recommends that a Presumptive Positive result be confirmed by an additional, more specific test such as mass spectrometry NOTE: Presumptive Positive indicates a n onnegative test result by immunoassay screen. It is a preliminary result. [facility] recommends that a Presumptive Positive result be confirmed by an additional, more specific test such as mass spectrometry NOTE: Presumptive Positive indicates a n onnegative test result by immunoassay screen. It is a preliminary result. [facility] recommends that a Presumptive Positive result be confirmed by an additional, more specific test such as mass spectrometry NOTE: Presumptive Positive indicates a n onnegative test result by immunoassay screen. It is a preliminary result. [facility] recommends that a Presumptive Positive result be confirmed by an additional, more specific test such as mass spectrometry NOTE: Presumptive Positive indicates a n onnegative test result by immunoassay screen. It is a preliminary result. [facility] recommends that a Presumptive Positive result be confirmed by an additional, more specific test such as mass spectrometry NOTE: Presumptive Positive indicates a n onnegative test result by immunoassay screen. It is a preliminary result. [facility] recommends that a Presumptive Positive result be confirmed by an additional, more specific test such as mass spectrometry NOTE: Presumptive Positive indicates a n onnegative test result by immunoassay screen. It is a preliminary result. [facility] recommends that a Presumptive Positive result be confirmed by an additional, more specific test such as mass spectrometry Name Value Range Interpretation Code Description Data Zoie rce(s) Supporting Document(s) Tramadol 3.00NegativeNegative ng/mL 200.00 ng/mL [facility] ID Date Data Source [id number] 06/05/2020 09:33:31 AM EDT [facility] NOTE: Presumptive Positive indicates a n onnegative test result by immunoassay screen. It is a preliminary result. [facility] recommends that a Presumptive Positive result be confirmed by an additional, more specific test such as mass spectrometry NOTE: Presumptive Positive indicates a n onnegative test result by immunoassay screen. It is a preliminary result. [facility] recommends that a Presumptive Positive result be confirmed by an additional, more specific test such as mass spectrometry NOTE: Presumptive Positive indicates a n onnegative test result by immunoassay screen. It is a preliminary result. [facility] recommends that a Presumptive Positive result be confirmed by an additional, more specific test such as mass spectrometry NOTE: Presumptive Positive indicates a n onnegative test result by immunoassay screen. It is a preliminary result. [facility] recommends that a Presumptive Positive result be confirmed by an additional, more specific test such as mass spectrometry NOTE: Presumptive Positive indicates a n onnegative test result by immunoassay screen. It is a preliminary result. [facility] recommends that a Presumptive Positive result be confirmed by an additional, more specific test such as mass spectrometry NOTE: Presumptive Positive indicates a n onnegative test result by immunoassay screen. It is a preliminary result. [facility] recommends that a Presumptive Positive result be confirmed by an additional, more specific test such as mass spectrometry NOTE: Presumptive Positive indicates a n onnegative test result by immunoassay screen. It is a preliminary result. [facility] recommends that a Presumptive Positive result be confirmed by an additional, more specific test such as mass spectrometry NOTE: Presumptive Positive indicates a n onnegative test result by immunoassay screen. It is a preliminary result. [facility] recommends that a Presumptive Positive result be confirmed by an additional, more specific test such as mass spectrometry NOTE: Presumptive Positive indicates a n onnegative test result by immunoassay screen. It is a preliminary result. [facility] recommends that a Presumptive Positive result be confirmed by an additional, more specific test such as mass spectrometry NOTE: Presumptive Positive indicates a n onnegative test result by immunoassay screen. It is a preliminary result. [facility] recommends that a Presumptive Positive result be confirmed by an additional, more specific test such as mass spectrometry NOTE: Presumptive Positive indicates a n onnegative test result by immunoassay screen. It is a preliminary result. [facility] recommends that a Presumptive Positive result be confirmed by an additional, more specific test such as mass spectrometry NOTE: Presumptive Positive indicates a n onnegative test result by immunoassay screen. It is a preliminary result. [facility] recommends that a Presumptive Positive result be confirmed by an additional, more specific test such as mass spectrometry Name Value Range Interpretation Code Description Data Zoie rce(s) Supporting Document(s) Amphetamines 302.00NegativeNegative ng/mL 500.00 ng/mL [facility] ID Date Data Source [id number] 06/05/2020 09:33:36 AM EDT [facility] NOTE: Presumptive Positive indicates a n onnegative test result by immunoassay screen. It is a preliminary result. [facility] recommends that a Presumptive Positive result be confirmed by an additional, more specific test such as mass spectrometry NOTE: Presumptive Positive indicates a n onnegative test result by immunoassay screen. It is a preliminary result. [facility] recommends that a Presumptive Positive result be confirmed by an additional, more specific test such as mass spectrometry NOTE: Presumptive Positive indicates a n onnegative test result by immunoassay screen. It is a preliminary result. [facility] recommends that a Presumptive Positive result be confirmed by an additional, more specific test such as mass spectrometry NOTE: Presumptive Positive indicates a n onnegative test result by immunoassay screen. It is a preliminary result. [facility] recommends that a Presumptive Positive result be confirmed by an additional, more specific test such as mass spectrometry NOTE: Presumptive Positive indicates a n onnegative test result by immunoassay screen. It is a preliminary result. [facility] recommends that a Presumptive Positive result be confirmed by an additional, more specific test such as mass spectrometry NOTE: Presumptive Positive indicates a n onnegative test result by immunoassay screen. It is a preliminary result. [facility] recommends that a Presumptive Positive result be confirmed by an additional, more specific test such as mass spectrometry NOTE: Presumptive Positive indicates a n onnegative test result by immunoassay screen. It is a preliminary result. [facility] recommends that a Presumptive Positive result be confirmed by an additional, more specific test such as mass spectrometry NOTE: Presumptive Positive indicates a n onnegative test result by immunoassay screen. It is a preliminary result. [facility] recommends that a Presumptive Positive result be confirmed by an additional, more specific test such as mass spectrometry NOTE: Presumptive Positive indicates a n onnegative test result by immunoassay screen. It is a preliminary result. [facility] recommends that a Presumptive Positive result be confirmed by an additional, more specific test such as mass spectrometry NOTE: Presumptive Positive indicates a n onnegative test result by immunoassay screen. It is a preliminary result. [facility] recommends that a Presumptive Positive result be confirmed by an additional, more specific test such as mass spectrometry NOTE: Presumptive Positive indicates a n onnegative test result by immunoassay screen. It is a preliminary result. [facility] recommends that a Presumptive Positive result be confirmed by an additional, more specific test such as mass spectrometry NOTE: Presumptive Positive indicates a n onnegative test result by immunoassay screen. It is a preliminary result. [facility] recommends that a Presumptive Positive result be confirmed by an additional, more specific test such as mass spectrometry Name Value Range Interpretation Code Description Data Zoie rce(s) Supporting Document(s) 6-MIGUEL 27.190Positive - InconsistentPOSITIVE n g/mL 10.00 ng/mL Abnormal (applies to non-numeric results) [facility] ID Date Data Source [id number] 06/05/2020 09:33:32 AM EDT [facility] NOTE: Presumptive Positive indicates a n onnegative test result by immunoassay screen. It is a preliminary result. [facility] recommends that a Presumptive Positive result be confirmed by an additional, more specific test such as mass spectrometry NOTE: Presumptive Positive indicates a n onnegative test result by immunoassay screen. It is a preliminary result. [facility] recommends that a Presumptive Positive result be confirmed by an additional, more specific test such as mass spectrometry NOTE: Presumptive Positive indicates a n onnegative test result by immunoassay screen. It is a preliminary result. [facility] recommends that a Presumptive Positive result be confirmed by an additional, more specific test such as mass spectrometry NOTE: Presumptive Positive indicates a n onnegative test result by immunoassay screen. It is a preliminary result. [facility] recommends that a Presumptive Positive result be confirmed by an additional, more specific test such as mass spectrometry NOTE: Presumptive Positive indicates a n onnegative test result by immunoassay screen. It is a preliminary result. [facility] recommends that a Presumptive Positive result be confirmed by an additional, more specific test such as mass spectrometry NOTE: Presumptive Positive indicates a n onnegative test result by immunoassay screen. It is a preliminary result. [facility] recommends that a Presumptive Positive result be confirmed by an additional, more specific test such as mass spectrometry NOTE: Presumptive Positive indicates a n onnegative test result by immunoassay screen. It is a preliminary result. [facility] recommends that a Presumptive Positive result be confirmed by an additional, more specific test such as mass spectrometry NOTE: Presumptive Positive indicates a n onnegative test result by immunoassay screen. It is a preliminary result. [facility] recommends that a Presumptive Positive result be confirmed by an additional, more specific test such as mass spectrometry NOTE: Presumptive Positive indicates a n onnegative test result by immunoassay screen. It is a preliminary result. [facility] recommends that a Presumptive Positive result be confirmed by an additional, more specific test such as mass spectrometry NOTE: Presumptive Positive indicates a n onnegative test result by immunoassay screen. It is a preliminary result. [facility] recommends that a Presumptive Positive result be confirmed by an additional, more specific test such as mass spectrometry NOTE: Presumptive Positive indicates a n onnegative test result by immunoassay screen. It is a preliminary result. [facility] recommends that a Presumptive Positive result be confirmed by an additional, more specific test such as mass spectrometry NOTE: Presumptive Positive indicates a n onnegative test result by immunoassay screen. It is a preliminary result. [facility] recommends that a Presumptive Positive result be confirmed by an additional, more specific test such as mass spectrometry Name Value Range Interpretation Code Description Data Zoie rce(s) Supporting Document(s) Buprenorphine 250Positive - ConsistentPOSITIVE> ng/mL 5.00 n g/mL [facility] Norbuprenorphine 290.150Positive - ConsistentPOSITI VE ng/mL 10.00 ng/mL [facility] Naloxone 0.000Negative - InconsistentNegative ng /mL 25.00 ng/mL Abnormal (applies to non-numeric results) [facility] ID Date Data Source [id number] 06/05/2020 09:33:36 AM EDT [facility] NOTE: Presumptive Positive indicates a n onnegative test result by immunoassay screen. It is a preliminary result. [facility] recommends that a Presumptive Positive result be confirmed by an additional, more specific test such as mass spectrometry NOTE: Presumptive Positive indicates a n onnegative test result by immunoassay screen. It is a preliminary result. [facility] recommends that a Presumptive Positive result be confirmed by an additional, more specific test such as mass spectrometry NOTE: Presumptive Positive indicates a n onnegative test result by immunoassay screen. It is a preliminary result. [facility] recommends that a Presumptive Positive result be confirmed by an additional, more specific test such as mass spectrometry NOTE: Presumptive Positive indicates a n onnegative test result by immunoassay screen. It is a preliminary result. [facility] recommends that a Presumptive Positive result be confirmed by an additional, more specific test such as mass spectrometry NOTE: Presumptive Positive indicates a n onnegative test result by immunoassay screen. It is a preliminary result. [facility] recommends that a Presumptive Positive result be confirmed by an additional, more specific test such as mass spectrometry NOTE: Presumptive Positive indicates a n onnegative test result by immunoassay screen. It is a preliminary result. [facility] recommends that a Presumptive Positive result be confirmed by an additional, more specific test such as mass spectrometry NOTE: Presumptive Positive indicates a n onnegative test result by immunoassay screen. It is a preliminary result. [facility] recommends that a Presumptive Positive result be confirmed by an additional, more specific test such as mass spectrometry NOTE: Presumptive Positive indicates a n onnegative test result by immunoassay screen. It is a preliminary result. [facility] recommends that a Presumptive Positive result be confirmed by an additional, more specific test such as mass spectrometry NOTE: Presumptive Positive indicates a n onnegative test result by immunoassay screen. It is a preliminary result. [facility] recommends that a Presumptive Positive result be confirmed by an additional, more specific test such as mass spectrometry NOTE: Presumptive Positive indicates a n onnegative test result by immunoassay screen. It is a preliminary result. [facility] recommends that a Presumptive Positive result be confirmed by an additional, more specific test such as mass spectrometry NOTE: Presumptive Positive indicates a n onnegative test result by immunoassay screen. It is a preliminary result. [facility] recommends that a Presumptive Positive result be confirmed by an additional, more specific test such as mass spectrometry NOTE: Presumptive Positive indicates a n onnegative test result by immunoassay screen. It is a preliminary result. [facility] recommends that a Presumptive Positive result be confirmed by an additional, more specific test such as mass spectrometry Name Value Range Interpretation Code Description Data Zoie rce(s) Supporting Document(s) Morphine 2500Positive - InconsistentPOSITIVE> ng /mL 50.00 ng/mL Abnormal (applies to non-numeric results) [facility] Codeine 108.510Positive - InconsistentPOSITIVE ng/mL 50.00 ng/mL Abnormal (applies to non-numeric results) [facility] Hydromorphone 22.570NegativeNegative ng/mL 50.00 ng/mL [facility] Hydrocodone 15.430NegativeNegative ng/mL 50.00 ng/mL [facility] Norhydrocodone 3.790NegativeNegative ng/mL 50.00 ng/mL [facility] ID Date Data Source [id number] 06/05/2020 09:33:32 AM EDT [facility] NOTE: Presumptive Positive indicates a n onnegative test result by immunoassay screen. It is a preliminary result. [facility] recommends that a Presumptive Positive result be confirmed by an additional, more specific test such as mass spectrometry NOTE: Presumptive Positive indicates a n onnegative test result by immunoassay screen. It is a preliminary result. [facility] recommends that a Presumptive Positive result be confirmed by an additional, more specific test such as mass spectrometry NOTE: Presumptive Positive indicates a n onnegative test result by immunoassay screen. It is a preliminary result. [facility] recommends that a Presumptive Positive result be confirmed by an additional, more specific test such as mass spectrometry NOTE: Presumptive Positive indicates a n onnegative test result by immunoassay screen. It is a preliminary result. [facility] recommends that a Presumptive Positive result be confirmed by an additional, more specific test such as mass spectrometry NOTE: Presumptive Positive indicates a n onnegative test result by immunoassay screen. It is a preliminary result. [facility] recommends that a Presumptive Positive result be confirmed by an additional, more specific test such as mass spectrometry NOTE: Presumptive Positive indicates a n onnegative test result by immunoassay screen. It is a preliminary result. [facility] recommends that a Presumptive Positive result be confirmed by an additional, more specific test such as mass spectrometry NOTE: Presumptive Positive indicates a n onnegative test result by immunoassay screen. It is a preliminary result. [facility] recommends that a Presumptive Positive result be confirmed by an additional, more specific test such as mass spectrometry NOTE: Presumptive Positive indicates a n onnegative test result by immunoassay screen. It is a preliminary result. [facility] recommends that a Presumptive Positive result be confirmed by an additional, more specific test such as mass spectrometry NOTE: Presumptive Positive indicates a n onnegative test result by immunoassay screen. It is a preliminary result. [facility] recommends that a Presumptive Positive result be confirmed by an additional, more specific test such as mass spectrometry NOTE: Presumptive Positive indicates a n onnegative test result by immunoassay screen. It is a preliminary result. [facility] recommends that a Presumptive Positive result be confirmed by an additional, more specific test such as mass spectrometry NOTE: Presumptive Positive indicates a n onnegative test result by immunoassay screen. It is a preliminary result. [facility] recommends that a Presumptive Positive result be confirmed by an additional, more specific test such as mass spectrometry NOTE: Presumptive Positive indicates a n onnegative test result by immunoassay screen. It is a preliminary result. [facility] recommends that a Presumptive Positive result be confirmed by an additional, more specific test such as mass spectrometry Name Value Range Interpretation Code Description Data Zoie rce(s) Supporting Document(s) Norfentanyl 50Positive - InconsistentPOSITIVE> ng/m L 1.00 ng/mL Abnormal (applies to non-numeric results) [facility] Fentanyl 50Positive - InconsistentPOSITIVE> ng/m L 1.00 ng/mL Abnormal (applies to non-numeric results) [facility] Carfentanil 0.000NegativeNegative ng/mL 1.00 ng/mL [facility] Norcarfentanil 0.230NegativeNegative ng/mL 1.00 ng/mL [facility] Sufentanil 0.170NegativeNegative ng/mL 1.00 ng/mL [facility] ID Date Data Source [id number] 06/05/2020 09:33:34 AM EDT [facility] NOTE: Presumptive Positive indicates a n onnegative test result by immunoassay screen. It is a preliminary result. [facility] recommends that a Presumptive Positive result be confirmed by an additional, more specific test such as mass spectrometry NOTE: Presumptive Positive indicates a n onnegative test result by immunoassay screen. It is a preliminary result. [facility] recommends that a Presumptive Positive result be confirmed by an additional, more specific test such as mass spectrometry NOTE: Presumptive Positive indicates a n onnegative test result by immunoassay screen. It is a preliminary result. [facility] recommends that a Presumptive Positive result be confirmed by an additional, more specific test such as mass spectrometry NOTE: Presumptive Positive indicates a n onnegative test result by immunoassay screen. It is a preliminary result. [facility] recommends that a Presumptive Positive result be confirmed by an additional, more specific test such as mass spectrometry NOTE: Presumptive Positive indicates a n onnegative test result by immunoassay screen. It is a preliminary result. [facility] recommends that a Presumptive Positive result be confirmed by an additional, more specific test such as mass spectrometry NOTE: Presumptive Positive indicates a n onnegative test result by immunoassay screen. It is a preliminary result. [facility] recommends that a Presumptive Positive result be confirmed by an additional, more specific test such as mass spectrometry NOTE: Presumptive Positive indicates a n onnegative test result by immunoassay screen. It is a preliminary result. [facility] recommends that a Presumptive Positive result be confirmed by an additional, more specific test such as mass spectrometry NOTE: Presumptive Positive indicates a n onnegative test result by immunoassay screen. It is a preliminary result. [facility] recommends that a Presumptive Positive result be confirmed by an additional, more specific test such as mass spectrometry NOTE: Presumptive Positive indicates a n onnegative test result by immunoassay screen. It is a preliminary result. [facility] recommends that a Presumptive Positive result be confirmed by an additional, more specific test such as mass spectrometry NOTE: Presumptive Positive indicates a n onnegative test result by immunoassay screen. It is a preliminary result. [facility] recommends that a Presumptive Positive result be confirmed by an additional, more specific test such as mass spectrometry NOTE: Presumptive Positive indicates a n onnegative test result by immunoassay screen. It is a preliminary result. [facility] recommends that a Presumptive Positive result be confirmed by an additional, more specific test such as mass spectrometry NOTE: Presumptive Positive indicates a n onnegative test result by immunoassay screen. It is a preliminary result. [facility] recommends that a Presumptive Positive result be confirmed by an additional, more specific test such as mass spectrometry Name Value Range Interpretation Code Description Data Zoie rce(s) Supporting Document(s) Temazepam 0.000NegativeNegative ng/mL 50.00 ng/mL [facility] Lorazepam 9.930NegativeNegative ng/mL 50.00 ng/mL [facility] alpha-Hydroxyalprazolam 0.000NegativeNegative ng/mL 50.00 ng /mL [facility] 7-Aminoclonazepam 0.000NegativeNegative ng/mL 50.00 ng/mL [facility] Oxazepam 18.950NegativeNegative ng/mL 50.00 ng/mL [facility] Nordiazepam 3.470NegativeNegative ng/mL 50.00 ng/mL [facility] ID Date Data Source [id number] 06/05/2020 09:33:37 AM EDT [facility] NOTE: Presumptive Positive indicates a n onnegative test result by immunoassay screen. It is a preliminary result. [facility] recommends that a Presumptive Positive result be confirmed by an additional, more specific test such as mass spectrometry NOTE: Presumptive Positive indicates a n onnegative test result by immunoassay screen. It is a preliminary result. [facility] recommends that a Presumptive Positive result be confirmed by an additional, more specific test such as mass spectrometry NOTE: Presumptive Positive indicates a n onnegative test result by immunoassay screen. It is a preliminary result. [facility] recommends that a Presumptive Positive result be confirmed by an additional, more specific test such as mass spectrometry NOTE: Presumptive Positive indicates a n onnegative test result by immunoassay screen. It is a preliminary result. [facility] recommends that a Presumptive Positive result be confirmed by an additional, more specific test such as mass spectrometry NOTE: Presumptive Positive indicates a n onnegative test result by immunoassay screen. It is a preliminary result. [facility] recommends that a Presumptive Positive result be confirmed by an additional, more specific test such as mass spectrometry NOTE: Presumptive Positive indicates a n onnegative test result by immunoassay screen. It is a preliminary result. [facility] recommends that a Presumptive Positive result be confirmed by an additional, more specific test such as mass spectrometry NOTE: Presumptive Positive indicates a n onnegative test result by immunoassay screen. It is a preliminary result. [facility] recommends that a Presumptive Positive result be confirmed by an additional, more specific test such as mass spectrometry NOTE: Presumptive Positive indicates a n onnegative test result by immunoassay screen. It is a preliminary result. [facility] recommends that a Presumptive Positive result be confirmed by an additional, more specific test such as mass spectrometry NOTE: Presumptive Positive indicates a n onnegative test result by immunoassay screen. It is a preliminary result. [facility] recommends that a Presumptive Positive result be confirmed by an additional, more specific test such as mass spectrometry NOTE: Presumptive Positive indicates a n onnegative test result by immunoassay screen. It is a preliminary result. [facility] recommends that a Presumptive Positive result be confirmed by an additional, more specific test such as mass spectrometry NOTE: Presumptive Positive indicates a n onnegative test result by immunoassay screen. It is a preliminary result. [facility] recommends that a Presumptive Positive result be confirmed by an additional, more specific test such as mass spectrometry NOTE: Presumptive Positive indicates a n onnegative test result by immunoassay screen. It is a preliminary result. [facility] recommends that a Presumptive Positive result be confirmed by an additional, more specific test such as mass spectrometry Name Value Range Interpretation Code Description Data Zoie rce(s) Supporting Document(s) Ethyl Sulfate 84.280NegativeNegative ng/mL 500.00 ng/mL [facility] Ethyl Glucuronide 1661.260Positive - InconsistentPOS ITIVE ng/mL 500.00 ng/mL Abnormal (applies to non-numeric results) [facility] ID Date Data Source [id number] 06/05/2020 09:33:35 AM EDT [facility] NOTE: Presumptive Positive indicates a n onnegative test result by immunoassay screen. It is a preliminary result. [facility] recommends that a Presumptive Positive result be confirmed by an additional, more specific test such as mass spectrometry NOTE: Presumptive Positive indicates a n onnegative test result by immunoassay screen. It is a preliminary result. [facility] recommends that a Presumptive Positive result be confirmed by an additional, more specific test such as mass spectrometry NOTE: Presumptive Positive indicates a n onnegative test result by immunoassay screen. It is a preliminary result. [facility] recommends that a Presumptive Positive result be confirmed by an additional, more specific test such as mass spectrometry NOTE: Presumptive Positive indicates a n onnegative test result by immunoassay screen. It is a preliminary result. [facility] recommends that a Presumptive Positive result be confirmed by an additional, more specific test such as mass spectrometry NOTE: Presumptive Positive indicates a n onnegative test result by immunoassay screen. It is a preliminary result. [facility] recommends that a Presumptive Positive result be confirmed by an additional, more specific test such as mass spectrometry NOTE: Presumptive Positive indicates a n onnegative test result by immunoassay screen. It is a preliminary result. [facility] recommends that a Presumptive Positive result be confirmed by an additional, more specific test such as mass spectrometry NOTE: Presumptive Positive indicates a n onnegative test result by immunoassay screen. It is a preliminary result. [facility] recommends that a Presumptive Positive result be confirmed by an additional, more specific test such as mass spectrometry NOTE: Presumptive Positive indicates a n onnegative test result by immunoassay screen. It is a preliminary result. [facility] recommends that a Presumptive Positive result be confirmed by an additional, more specific test such as mass spectrometry NOTE: Presumptive Positive indicates a n onnegative test result by immunoassay screen. It is a preliminary result. [facility] recommends that a Presumptive Positive result be confirmed by an additional, more specific test such as mass spectrometry NOTE: Presumptive Positive indicates a n onnegative test result by immunoassay screen. It is a preliminary result. [facility] recommends that a Presumptive Positive result be confirmed by an additional, more specific test such as mass spectrometry NOTE: Presumptive Positive indicates a n onnegative test result by immunoassay screen. It is a preliminary result. [facility] recommends that a Presumptive Positive result be confirmed by an additional, more specific test such as mass spectrometry NOTE: Presumptive Positive indicates a n onnegative test result by immunoassay screen. It is a preliminary result. [facility] recommends that a Presumptive Positive result be confirmed by an additional, more specific test such as mass spectrometry Name Value Range Interpretation Code Description Data Zoie rce(s) Supporting Document(s) Pregabalin 4.580NegativeNegative ng/mL 500.00 ng/mL [facility] Gabapentin 0.000NegativeNegative ng/mL 500.00 ng/mL [facility] ID Date Data Source [id number] 05/16/2020 04:00:00 AM EDT [facility] ([facility]) Name Value Range Interpretation Code Description Data Zoie rce(s) Supporting Document(s) Amphetamines [Presence] in Stool 18.00NegativeNegative [facility] ([facility]) Benzodiazepines [Presence] in Serum or Plasma by Scree n method >200 ng/mL 0.00NegativeNegative [facility] ( [facility]) Buprenorphine [Presence] in Blood by Screen method 2.4 0NegativeNegative [facility] ([facility]) Cocaine Metabolites 1.00NegativeNegative [facility] ([facility]) Methamphetamine [Mass/mass] in Hair 10.00NegativeNegative [facility] ([facility]) Opiates [Presence] in Unknown substance by Confirmator y method 3.00NegativeNegative [facility] ( [facility]) Methadone [Mass/volume] in Blood -5.00NegativeNegative [facility] ([facility]) Phencyclidine [Presence] in Unknown substance by Confi rmatory method -3.00NegativeNegative [facility] ( [facility]) Synthetic Opiates 4.00NegativeNegative [facility] ([facility]) Tramadol [Presence] in Blood by Screen method -1.00Negative *Negative [facility] ([facility]) Cannabinoids [Presence] in Unknown substance by Confir matory method 0.50NegativeNegative [facility] Ethyl Alcohol 0.00NegativeNegative [facility] ([facility]) Buprenorphine [Presence] in Blood by Screen method 1.0 00Negative - InconsistentNegative [facility]SM[facility] ([facility]) Norbuprenorphine [Mass/mass] in Meconium by Confirmato ry method 0.000Negative - InconsistentNegative [facility]SM[facility] ([facility]) Naloxone [Mass/volume] in Urine by Confirmatory method 0.000NegativeNegative SANDR[facility] ( [facility]) ID Date Data Source [id number] 05/19/2020 09:50:29 PM EDT [facility] NOTE: Presumptive Positive indicates a n onnegative test result by immunoassay screen. It is a preliminary result. [facility] recommends that a Presumptive Positive result be confirmed by an additional, more specific test such as mass spectrometry Name Value Range Interpretation Code Description Data Zoie rce(s) Supporting Document(s) Amphetamines 18.00NegativeNegative ng/mL 50.00 ng/mL [facility] Benzodiazepines 0.00NegativeNegative ng/mL 20.00 ng/mL [facility] Buprenorphine 2.40NegativeNegative ng/mL 5.00 ng/mL [facility] Cocaine Metabolites 1.00NegativeNegative ng/mL 20.00 ng/mL [facility] Methamphetamine 10.00NegativeNegative ng/mL 50.00 ng/mL [facility] Methadone -5.00NegativeNegative ng/mL 50.00 ng/mL [facility] Opiates 3.00NegativeNegative ng/mL 40.00 ng/mL [facility] Synthetic Opiates 4.00NegativeNegative ng/mL 40.00 ng/mL [facility] Phencyclidine -3.00NegativeNegative ng/mL 10.00 ng/mL [facility] Cannabinoids 0.50NegativeNegative ng/mL 8.00 ng/mL [facility] Tramadol -1.00NegativeNegative ng/mL 50.00 ng/mL [facility] Ethyl Alcohol 0.00NegativeNegative mg/dL 40.00 mg/dL [facility] ID Date Data Source [id number] 05/19/2020 09:50:29 PM EDT [facility] NOTE: Presumptive Positive indicates a n onnegative test result by immunoassay screen. It is a preliminary result. [facility] recommends that a Presumptive Positive result be confirmed by an additional, more specific test such as mass spectrometry Name Value Range Interpretation Code Description Data Zoie rce(s) Supporting Document(s) Buprenorphine 1.000Negative - InconsistentNegative ng /mL 2.50 ng/mL Abnormal (applies to non-numeric results) [facility] Naloxone 0.000NegativeNegative ng/mL 10.00 ng/mL [facility] Norbuprenorphine 0.000Negative - InconsistentNegati ve ng/mL 10.00 ng/mL Abnormal (applies to non-numeric results) [facility] Procedure Social History Code Duration Value Status Description Data Source(s ) Smoking 12/18/2020 12:00:00 AM EDT Never smoker completed Never s moker [facility] ([facility]) 12/04/2020 12:00:00 AM EDT Current non-smoker completed C urrent non-smoker [facility] Smoking 06/21/2020 12:00:00 PM EDT Smokes tobacco daily (findi ng) completed Current Every Day Smoker [facility] ([employer]) Smoking 02/07/2020 12:00:00 AM EST Unknown if ever smoked comp leted Unknown if ever smoked [facility] ([facility]) Smoking 01/30/2020 12:00:00 AM EST Unknown if ever smoked comp leted Unknown if ever smoked [facility] ([facility]) Vital Signs ID Date Data Source UNK Name Value Range Interpretation Code Description Data Source(s) Systolic blood pressure 122 mm[Hg] 122 mm[Hg] M EDCORI ([facility], ) Diastolic blood pressure 72 mm[Hg] 72 mm[Hg] [facility] ([facility], ) Heart rate 72 /min 72 /min [facility] ([facility], ) Oxygen saturation in Arterial blood by Pulse oximetry 98 % 98 % [facility] ([facility]) Body height 67 [in_i] 67 [in_i] [facility] ([facility]) 5'7" Body weight 177.00 [lb_av] 177.00 [lb_av] MEDEN T ([facility]) Body mass index (BMI) [Ratio] 27.7 kg/m2 27.7 k g/m2 [facility] ([facility]) [place] body weight 135 [lb_av] 135 [lb_av] MEDEN T ([facility]) Body weight 80.287 kg 80.287 kg [facility] ([facility]) Body surface area Derived from formula 1.92 m2 1.92 m2 [facility] ([facility]) Body height 170.18 cm 170.18 cm [facility] ([facility]) Systolic blood pressure 120 mm[Hg] 120 mm[Hg] N [facility]Gen ([facility]) Diastolic blood pressure 77 mm[Hg] 77 mm[Hg] [facility] ([facility]) Body weight 183.00 [lb_av] 183.00 [lb_av] [facility] Body mass index (BMI) [Ratio] 28.7 kg/m2 28.7 k g/m2 [facility] ([facility]) [place] body weight 135 [lb_av] 135 [lb_av] [facility] Body surface area Derived from formula 1.95 m2 1.95 m2 [facility] ([facility]) Heart rate 64 /min 64 /min [facility] ([facility]) Body height 67 [in_i] 67 [in_i] [facility] ([facility]) 5'7" Oxygen saturation in Arterial blood by Pulse oximetry 98 % 98 % [facility] ([facility]) Systolic blood pressure 120 mm[Hg] 120 mm[Hg] M EDENT ([facility]) Diastolic blood pressure 78 mm[Hg] 78 mm[Hg] [facility] ([facility]) Body weight 83.009 kg 83.009 kg [facility] ([facility]) Systolic blood pressure 104 mm[Hg] 104 mm[Hg] [facility] ([facility]) Diastolic blood pressure 70 mm[Hg] 70 mm[Hg] [facility] ([facility]) Heart rate 77 /min 77 /min [facility] ([facility]) Oxygen saturation in Arterial blood by Pulse oximetry 98 % 98 % [facility] ([facility]) Body height 67 [in_i] 67 [in_i] [facility] ([facility]) 5'7" Body weight 180.00 [lb_av] 180.00 [lb_av] MED[facility] T ([facility]) Body mass index (BMI) [Ratio] 28.2 kg/m2 28.2 k g/m2 [facility] ([facility]) [place] body weight 135 [lb_av] 135 [lb_av] MED[facility] T ([facility]) Body weight 81.648 kg 81.648 kg [facility] ([facility]) Body surface area Derived from formula 1.93 m2 1.93 m2 [facility] ([facility]) Oxygen saturation in Arterial blood by Pulse oximetry 98 % 98 % [facility] ([facility]) Body height 67 [in_i] 67 [in_i] [facility] ([facility]) 5'7" Body weight 180.00 [lb_av] 180.00 [lb_av] MED[facility] T ([facility]) Body mass index (BMI) [Ratio] 28.2 kg/m2 28.2 k g/m2 [facility] ([facility]) [place] body weight 135 [lb_av] 135 [lb_av] MED[facility] T ([facility]) Body weight 81.648 kg 81.648 kg [facility] ([facility]) Body surface area Derived from formula 1.93 m2 1.93 m2 [facility] ([facility]) Body height 170.2 cm 170.2 cm [facility] ([facility]) Body weight 79.5 KG 79.5 KG [facility] ([facility]) Body mass index (BMI) [Ratio] 27.4 27.4 [facility] ([facility]) Pain severity - 0-10 verbal numeric rating [Score] - Reported 0.0 S lee 0.0 Scale [facility] ([facility]) Systolic blood pressure 122 mm[Hg] 122 mm[Hg] M EDENT ([facility]) Diastolic blood pressure 69 mm[Hg] 69 mm[Hg] [facility] Heart rate 77 /min 77 /min [facility] ([facility]) Respiratory rate 18 /min 18 /min [facility] ( [facility]) Body temperature 97.1 [degF] 97.1 [degF] [facility] Body weight 178.00 [lb_av] 178.00 [lb_av] MEDEN T ([facility]) Patient Treatment Plan of Care Planned Activity Planned Date Details Description Data Source (s) Metronidazole 0.0075 MG/MG Vaginal Gel [[facility]] 12/04/2020 12: 00:00 AM EDT [facility] ([facility]) Metronidazole 500 MG Oral Tablet 10/02/2020 12:00:00 AM EDT [facility] ([facility]) Methadone Hydrochloride 2 MG/ML Oral Solution [facility] ([facility])
[2021-01-06] MEDS ORDERED: OXYMETAZOLINE 0.05% NASAL SPRAY (AFRIN) As Ordered ONE (09:16)
[2021-01-06] MEDS ORDERED: BUPIVACAINE/EPIN 0.5% 30 ML VIAL As Ordered ONE (09:16)
[2021-01-06] MEDS ORDERED: propofoL 200 MG/20 ML VIAL As Ordered ONE (09:49)
[2021-01-06] MEDS ORDERED: dexameTHASONE 4 MG/ML 1ML VIAL (J1100 PER 1MG) As Ordered ONE (09:49)
[2021-01-06] MEDS ORDERED: ONDANSETRON 4MG/2ML VIAL As Ordered ONE (09:49)
[2021-01-06] MEDS ORDERED: LIDOCAINE 2% 100MG/5ML SDV (FOR ANES.) As Ordered ONE (09:49)
[2021-01-06] MEDS ORDERED: fentaNYL 250 MCG/5 ML INJECTION (J3010) As Ordered ONE (09:49)
[2021-01-06] MEDS ORDERED: SUGAMMADEX SODIUM 500 MG/5 ML VIAL (BRIDION) As Ordered ONE (09:49)
[2021-01-06] MEDS ORDERED: ROCURONIUM BROMIDE 50 MG/5 ML VIAL As Ordered ONE (09:49)
[2021-01-06] MEDS ORDERED: MIDAZOLAM INJ 2MG/2ML VIAL (J2250 PER 1MG) As Ordered ONE (09:49)
[2021-01-06] MEDS ORDERED: GLYCOPYRROLATE INJ 0.2 MG/ML 2 ML VIAL As Ordered ONE (10:14)
[2021-01-06] MEDS ORDERED: fentaNYL 100 MCG/2 ML INJECTION (J3010) As Ordered ONE (10:34)
[2021-01-06] MEDS ORDERED: METOCLOPRAMIDE INJ 10MG/2ML VIAL (J2765 PER 1) IV PRN (10:40)
[2021-01-06] MEDS ORDERED: ONDANSETRON 4MG/2ML VIAL IV PRN (10:40)
[2021-01-06] MEDS ORDERED: LR 1,000 ML IV SCH ×2 (10:40→10:45)
[2021-01-06] MEDS ORDERED: fentaNYL 100 MCG/2 ML INJECTION (J3010) IV PRN (10:40)
[2021-01-06] MEDS ORDERED: PERCOCET 5MG/325MG TAB PO PRN (10:40)
--- NOTE | 2021-01-06 10:52 | ROOPDOC ---
[facility] Report Of Operation Report of Operation DATE OF PROCEDURE: 01/06/21 PREPROCEDURE DIAGNOSES: Chronic tonsillitis. POSTPROCEDURE DIAGNOSES: Same PROCEDURE PERFORMED: . SURGEON: MD Berhane SUPERVISOR DRY PASTE: Jed, ANESTHESIA: General. ESTIMATED BLOOD LOSS: Approximately 5 mL mL. COMPLICATIONS: None. REMARKS: . FINDINGS: SPECIMENS REMOVED: Right and left tonsil PROCEDURE NOTE: Patient was seen in the office and diagnosed with chronic adenotonsillitis and adenotonsillar hypertrophy. The decision was made in consultation with the patient and/or their parents to undergo the above-named procedure. The risks and benefits of surgery were explained, including alternatives to the surgery, informed consent was obtained. The patient was admitted through the same-day surgery program and taken to the operating room where general anesthetic was administered via intravenous injection. The patient was then intubated endotracheally. Tonsil gag was placed in the mouth and expanded. This was secured to a Bhat stand. Red rubber catheter was placed through the nose and in the oropharynx for smoke evacuation. Right tonsil was grasped with an Allis forceps and retracted medially. Using electrocautery, the capsule was identified laterally. Tonsil was then removed from its fossa in an inferior to superior fashion. Once this was completed, several areas were cauterized using suction cautery. A tonsil sponge soaked in half percent Marcaine with epinephrine was placed in the ear for several minutes and then removed. Interrupted 3-0 Vicryl sutures were then placed between the anterior and posterior pillars. The left tonsil was then grasped with an Allis forceps and retracted medially. Using electrocautery, the capsule was identified laterally. Tonsil was removed from its fossa and inferior to superior fashion. Once this was completed, the bed was inspected, and any bleeding areas were cauterized using suction cautery. A tonsil sponge soaked in half percent Marcaine with epinephrine was placed in the tonsil bed for several minutes and then removed. Interrupted 3-0 Vicryl sutures were then placed between the anterior and posterior pillars. We then released the tonsil gag and removed it from the mouth. The TMJ joint was checked. The p atient was then allowed to recover from anesthesia and taken to the postanesthesia care area in stable condition. There were no complications during this procedure. . DESCRIPTION OF PROCEDURE: . Colby Last MD Jan 06, 2021 10:52
[2021-01-06 11:20] VITALS: BP 143/71
== END 2021-01-06 11:41 | disposition home or self-care (01) ==
LOC: M SDC 07:57
PROVIDERS: ATTEND Otolaryngology
DX: J35.01 Chronic tonsillitis (principal); Z79.899 Other long term (current) drug therapy; B18.2 Chronic viral hepatitis C; F11.11 Opioid abuse, in remission
CPT/HCPCS: 42826; 81025; 88302; J1100; J2250; J2405; J3010

== ENCOUNTER → 2021-07-22 | Outpatient (CLI) | payer OTHER ==
[~2021-07-22] MED LIST changes: -LR 1,000 ML IV ONE
== END ==
LOC: M WUC 14:06
PROVIDERS: ATTEND Family Medicine
DX: F41.8 Other specified anxiety disorders (principal)

== ENCOUNTER 2022-04-20 19:56 | Emergency (ER) | payer OTHER ==
[~2022-04-20] VITALS: Ht 170.2 cm; Wt 99.6 kg
[2022-04-20 21:31] LABS: BASO % 0.3 % (0.0-1.0); EOS # 0.1 10^3/uL (0.0-0.5); HEMOGLOBIN 10.7 g/dl (12.0-15.5); LYMPH # 1.4 10^3/uL (1.5-5.0); LYMPH % 22.9 % (24.0-44.0); MEAN CORPUSCULAR HEMOGLOBIN 26.4 pg (27.0-33.0); MEAN CORPUSCULAR HGB CONC 32.4 g/dl (32.0-36.5); MEAN CORPUSCULAR VOLUME 81.3 fl (80.0-96.0); MONO # 0.5 10^3/uL (0.0-0.8); NEUTROPHILS % 67.5 % (36.0-66.0); PLATELET COUNT, AUTOMATED 235 10^3/uL (150-450); RED BLOOD COUNT 4.06 10^6/uL (4.00-5.40)
[2022-04-20 22:03] LABS: INR 0.89; PROTHROMBIN TIME 12.2 SECONDS (12.5-14.5)
[2022-04-20 22:15] LABS: D-DIMER QUANT 1064.55 ng/ml (<500)
[2022-04-20 22:22] LABS: ALBUMIN 3.6 G/DL (3.2-5.2); ALKALINE PHOSPHATASE 110 U/L (46-116); ALT/SGPT 21 U/L (7.0-40); AST/SGOT 28 U/L (<34); BILIRUBIN,DIRECT < 0.1 MG/DL (<0.4); BILIRUBIN,TOTAL 0.2 MG/DL (0.3-1.2); BLOOD UREA NITROGEN 8 MG/DL (9-23); CALCIUM LEVEL 8.6 MG/DL (8.5-10.1); CARBON DIOXIDE LEVEL 29 MMOL/L (20-31); CHLORIDE LEVEL 103 MMOL/L (98-107); CK-MB VALUE MASS 1.9 NG/ML (<3.6); CREATININE FOR GFR 0.65 MG/DL (0.55-1.30); GLOMERULAR FILTRATION RATE > 60.0 (>60); GLUCOSE, FASTING 109 MG/DL (60-100); POTASSIUM SERUM 4.2 MMOL/L (3.5-5.1); SODIUM LEVEL 136 MMOL/L (136-145); THYROID STIMULATING HORMONE 1.628 uIU/ML (0.55-4.78); THYROXINE (T4) 4.4 UG/DL (4.5-10.9)
[2022-04-20 22:23] LABS: CPK CREATINE PHOSPHOKINASE 125 U/L (34-145); MB/CK RELATIVE INDEX 1.52 (< OR =4)
[2022-04-20] MEDS ORDERED: ISOVUE-370 76% 100ML VIAL As Ordered ONE (22:24)
[2022-04-20 23:21] LABS: CK-MB VALUE MASS 1.4 NG/ML (<3.6)
[2022-04-20 23:23] LABS: CPK CREATINE PHOSPHOKINASE 120 U/L (34-145); MB/CK RELATIVE INDEX 1.16 (< OR =4)
[2022-04-20] MEDS ORDERED: DALBAVANCIN 1,500 MG in D5W 250 ML IV ONE (23:40)
[2022-04-21] MEDS ORDERED: BACTRIM 160MG/800MG DS TAB PO ONE
[2022-04-21] MEDS ORDERED: BACT800T5 PO (00:01)
[2022-04-21 00:03] VITALS: O2SAT 99
[2022-04-21 00:06] LABS: APPEARANCE, URINE HAZY (CLEAR); BACTERIA, URINE AUTO NEGATIVE (NEGATIVE); BILIRUBIN, URINE AUTO NEGATIVE (NEGATIVE); BLOOD, URINE BLOOD NEGATIVE (NEGATIVE); COLOR, URINE YELLOW (YELLOW); GLUCOSE, URINE (UA) AUTO NEGATIVE (NEGATIVE); KETONE, URINE AUTO NEGATIVE (NEGATIVE); LEUKOCYTE ESTERASE, URINE AUTO NEGATIVE (NEGATIVE); NITRITE, URINE AUTO NEGATIVE (NEGATIVE); PROTEIN, URINE AUTO NEGATIVE (NEGATIVE); RBC, URINE AUTO 0 /HPF (0-3); SQUAMOUS EPITHELIAL CELL UR AU 17 /HPF (0-6); UROBILINOGEN, URINE AUTO 0.2 mg/dL (0.0-2.0); WBC, URINE AUTO 1 /HPF (0-3)
[2022-04-21 00:10] VITALS: BP 139/69
== END 2022-04-21 00:26 | disposition home or self-care (01) ==
LOC: M ED 19:56
DX: R60.0 Localized edema (principal); R06.02 Shortness of breath; F19.10 Other psychoactive substance abuse, uncomplicated; F31.9 Bipolar disorder, unspecified; F90.9 Attention-deficit hyperactivity disorder, unspecified type; B19.20 Unspecified viral hepatitis C without hepatic coma; Z87.440 Personal history of urinary (tract) infections; Z79.899 Other long term (current) drug therapy

== ENCOUNTER → 2022-05-25 | Outpatient (CLI) | payer OTHER ==
[~2022-05-25] MED LIST changes: +BACT800T5 PO; +SENN-186 PO; -SENN-80 PO
== END ==
LOC: M OUTALCOH 07:27
PROVIDERS: ATTEND Psychiatry & Neurology Psychiatry
DX: Z03.89 Encounter for observation for other suspected diseases and conditions ruled out (principal)

== ENCOUNTER → 2022-07-10 | Outpatient (REF) | payer OTHER ==
[2022-07-10 21:53] LABS: BASO % 0.4 % (0.0-1.0); EOS # 0.1 10^3/uL (0.0-0.5); HEMATOCRIT 32.1 % (36.0-47.0); HEMOGLOBIN 10.3 g/dl (12.0-15.5); LYMPH # 1.4 10^3/uL (1.5-5.0); LYMPH % 26.1 % (24.0-44.0); MEAN CORPUSCULAR HEMOGLOBIN 25.7 pg (27.0-33.0); MEAN CORPUSCULAR HGB CONC 32.1 g/dl (32.0-36.5); MONO # 0.5 10^3/uL (0.0-0.8); MONO % 9.5 % (2.0-8.0); NEUTROPHILS # 3.3 10^3/uL (1.5-8.5); NEUTROPHILS % 61.6 % (36.0-66.0); PLATELET COUNT, AUTOMATED 140 10^3/uL (150-450); RED BLOOD COUNT 4.01 10^6/uL (4.00-5.40); WHITE BLOOD COUNT 5.4 10^3/uL (4.0-10.0)
[2022-07-10 22:13] LABS: ALBUMIN 3.4 G/DL (3.2-5.2); ALKALINE PHOSPHATASE 101 U/L (46-116); ALT/SGPT 29 U/L (7.0-40); AST/SGOT 29 U/L (<34); BILIRUBIN,TOTAL 0.2 MG/DL (0.3-1.2); BLOOD UREA NITROGEN 11 MG/DL (9-23); CARBON DIOXIDE LEVEL 28 MMOL/L (20-31); CHLORIDE LEVEL 101 MMOL/L (98-107); CREATININE FOR GFR 0.69 MG/DL (0.55-1.30); GLOMERULAR FILTRATION RATE > 60.0 (>60); GLUCOSE, FASTING 88 MG/DL (60-100); POTASSIUM SERUM 4.1 MMOL/L (3.5-5.1); SODIUM LEVEL 137 MMOL/L (136-145); TOTAL PROTEIN 7.4 G/DL (5.7-8.2)
[2022-07-10 22:14] LABS: TOTAL T3 105.3 NG/DL (60.0-181.0)
[2022-07-10 22:15] LABS: FREE T4 0.79 NG/DL (0.89-1.76); THYROID STIMULATING HORMONE 1.212 uIU/ML (0.55-4.78); TOTAL 25(OH) VITAMIN D 26.4 NG/ML (20.0-100.0)
[2022-07-10 22:19] LABS: MONO SCRN NEGATIVE (NEGATIVE)
== END ==
LOC: M LAB REF 20:54
PROVIDERS: ATTEND Physician Assistant
DX: R53.83 Other fatigue (principal)

== ENCOUNTER 2023-02-02 20:20 | Emergency (ER) | payer OTHER ==
[~2023-02-02] VITALS: Ht 170.2 cm; Wt 79.0 kg
[2023-02-03 02:14] VITALS: BP 107/59; TEMP 97.1; O2SAT 96
== END 2023-02-03 02:41 | disposition home or self-care (01) ==
LOC: M ED 20:20
DX: S00.83XA Contusion of other part of head, initial encounter (principal); W22.09XA Striking against other stationary object, initial encounter; Y92.9 Unspecified place or not applicable; Y93.9 Activity, unspecified; Z79.899 Other long term (current) drug therapy